=== PATIENT | female | born 1970 | race Two or more races ===

== ENCOUNTER 2020-06-18 08:21 | Outpatient (REF) | payer OTHER, SELFPAY ==
[2020-06-18 10:11] LABS: Alanine Aminotransferase 20 U/L (0-31); Albumin Level 4.3 g/dL (3.5-5.0); Alkaline Phosphatase 87 U/L (39-117); Anion Gap 13 (12-20); Aspartate Amino Transferase 14 U/L (5-31); Bilirubin Total 0.2 mg/dL (0.0-1.0); Blood Urea Nitrogen 12 mg/dL (9-16); Calcium 9.3 mg/dL (8.4-10.2); Carbon Dioxide 24 mmol/L (22-29); Chloride 107 mmol/L (96-108); Cholesterol 228 mg/dL; Estimated Glomerular Filt Rate > 60; Glucose Fasting 141 mg/dL (60-99); HDL Cholesterol 41 mg/dL; LDL Cholesterol Calculated 159 mg/dl; Potassium 4.2 mmol/L (3.3-5.1); Sodium 140 mmol/L (135-145); Total Protein 6.8 g/dL (6.5-8.0); Triglycerides 141 mg/dL
[2020-06-24 13:22] LABS: Vitamin D 25-OH, D2 <4 ng/mL; Vitamin D 25-OH, D3 22 ng/mL; Vitamin D 25-OH, Total 22 ng/mL (30-100)
== END 2020-06-18 08:22 | disposition home or self-care (01) ==
LOC: HO.LAB 08:21
PROVIDERS: PCP Internal Medicine; Visit Provider Internal Medicine
DX: E78.5 Hyperlipidemia, unspecified (principal); R73.02 Impaired glucose tolerance (oral); E55.9 Vitamin D deficiency, unspecified
CPT/HCPCS: 36415; 80053; 80061; 82306

== ENCOUNTER → 2020-06-27 13:31 | Outpatient (BNVA) | payer OTHER, SELFPAY | PROVIDERS: PCP Internal Medicine; Visit Provider Nurse Practitioner Family | DX: M96.1 Postlaminectomy syndrome, not elsewhere classified (principal); Z96.89 Presence of other specified functional implants | CPT/HCPCS: 99202 ==

== ENCOUNTER 2020-07-20 12:49 | Outpatient (REF) | payer OTHER, SELFPAY ==
--- NOTE | ~2020-07-20 | CT_ITS ---
EXAMINATION: CT LUMBAR SPINE WITHOUT CONTRAST CLINICAL INFORMATION: Postlaminectomy syndrome. COMPARISON: Lumbar spine CT 09/23/2017. TECHNIQUE: A multidetector CT acquisition of the lumbar spine is obtained without contrast. Multiplanar reformats were acquired and utilized for image interpretation. This CT examination was performed using dose optimization techniques as appropriate, variously including the following: *Automated exposure control *Adjustment of mA and/or kV according to patient size (this includes techniques or standardized protocols for targeted exams where dose is matched to indication/reason for exam; i.e. extremities or head) *Use of iterative reconstruction technique FINDINGS: Stable-appearing grade 3 anterolisthesis of L5 on S1 and solid interbody fusion at L5-S1. There are redemonstrated postoperative changes following L5-S1 laminectomy. There are old screw tracks within the L4 and S1 vertebral bodies and posterior elements and there is solid posterolateral bone fusion mass spanning the L4-S1 levels. Chronic vertebral body height loss at L5. The vertebral body heights are otherwise maintained. Complete loss of the L5-S1 disc space. Mild disc volume loss at L4-L5 unchanged. The remaining disc volumes are preserved. There are no acute fractures and there are no acute subluxations. There are degenerative changes involving the SI joints bilaterally. There is aortoiliac atherosclerotic calcification. There is sigmoid diverticulosis. The L1-L2 and the L2-L3 disc contours remain within normal limits. No appreciable central canal stenosis nor foraminal stenosis at these levels. L3-L4: Small annular disc bulge and severe bilateral facet arthropathy that has progressed. Vacuum phenomenon within the L3-L4 facet joints bilaterally. No appreciable central canal stenosis and no significant foraminal stenosis. L4-L5: Diffuse annular disc bulge and advanced bilateral facet arthropathy. Central canal is patent and there is likely mild bilateral foraminal encroachment. Findings unchanged. L5-S1: Laminectomy changes. Grade 3 anterolisthesis of L5 on S1. Some calcification is noted along the dorsal margin of the thecal sac. Osteophytic ridging and solid posterolateral bone fusion mass result in fairly severe bilateral foraminal stenosis with probable mass effect on the exiting nerve roots bilaterally that is unchanged. CT/CT lumbar spine wo con IMPRESSION: - Stable-appearing grade 3 anterolisthesis of L5 on S1 and solid interbody fusion at L5-S1. There are redemonstrated postoperative changes following L5-S1 laminectomy. There are old screw tracks within the L4 and S1 vertebral bodies and posterior elements and there is solid posterolateral bone fusion mass spanning the L4-S1 levels. - At L5-S1, grade 3 anterolisthesis, osteophytic ridging, and posterolateral bone fusion mass result in similar severe bilateral bony foraminal encroachment with mass effect on the exiting L5 nerve roots bilaterally. - At the junctional L3-L4 level, severe bilateral hypertrophic facet arthropathy and facet vacuum phenomenon bilaterally have progressed.
== END 2020-07-20 12:50 | disposition home or self-care (01) ==
LOC: HO.CT 12:49
PROVIDERS: Visit Provider Internal Medicine
DX: M96.1 Postlaminectomy syndrome, not elsewhere classified (principal); M43.16 Spondylolisthesis, lumbar region; Z96.89 Presence of other specified functional implants
CPT/HCPCS: 72131; 99212

== ENCOUNTER → 2020-12-16 13:01 | Outpatient (BNVA) | payer OTHER, SELFPAY | PROVIDERS: PCP Internal Medicine; Visit Provider Nurse Practitioner Family ==

== ENCOUNTER 2020-12-28 13:23 | Emergency (ER) | payer OTHER, SELFPAY ==
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
[2020-12-28 13:33] VITALS: BP 129/88; PULSE 109; RESP 16; TEMP 35.8; O2SAT 99; BMI 28.9
[2020-12-28 15:39] LABS: MANUAL DIFF FLAG NO
[2020-12-28 15:42] LABS: Appearance Urine CLEAR; Color Urine YELLOW; Glucose Urine UA 100 MG/DL (NEG); Leukocyte Esterase Urine NEG (NEG); Nitrite Urine NEG (NEG); Specific Gravity - Urine <= 1.005 (1.005-1.025); UACC Culture Trigger NO; Urine Blood 2+ (NEG); Urine Ketones NEG (NEG); Urine Protein NEG (NEG-TRACE)
[2020-12-28 15:53] LABS: Squamous Epithelial Cell Urine 1+ /LPF
[2020-12-28 15:54] LABS: Bacteria Urine TRACE /LPF; RBC Urine 0-2 /HPF (0); WBC Urine 0 /HPF (0-4)
[2020-12-28 15:55] LABS: Basophils Percent Auto 0.3 % (0-2); Eosinophils Absolute Auto 0.1 X10*3/uL (0.0-0.4); Hematocrit 39.3 % (37-47); Hemoglobin 12.5 g/dl (12.0-16.0); Imm Gran Abs Auto 0.02 X10*3/uL (0.00-0.03); Imm Gran Pct Auto 0.3 % (0.0-0.4); Lymphocytes Absolute Auto 1.6 X10*3/uL (1.2-4.9); Lymphocytes Percent Auto 20.5 % (20-40); Mean Corpuscular HGB Conc 31.8 g/dl (31.0-35.0); Mean Corpuscular Hemoglobin 25.5 pg (27.0-33.0); Mean Corpuscular Volume 80.2 fL (80-98); Mean Platelet Volume 9.7 fL (9.4-12.3); Monocytes Absolute Auto 0.5 X10*3/uL (0.1-1.2); Monocytes Percent Auto 6.5 % (2-11); Neutrophils Absolute Auto 5.5 X10*3/uL (2.0-8.3); Neutrophils Percent Auto 71.4 % (45-73); Platelet Count 299 X10*3/uL (160-400); Red Cell Distribution Width 16.2 % (11.0-16.0); White Blood Count 7.7 X10*3/uL (4.8-10.8)
[2020-12-28 15:58] LABS: Alanine Aminotransferase 35 U/L (0-31); Albumin Level 4.8 g/dL (3.5-5.0); Alkaline Phosphatase 81 U/L (39-117); Anion Gap 13 (12-20); Aspartate Amino Transferase 15 U/L (5-31); Bilirubin Direct 0.2 mg/dL (0.0-0.5); Bilirubin Total 0.4 mg/dL (0.0-1.0); Blood Urea Nitrogen 7 mg/dL (9-16); Calcium 9.9 mg/dL (8.4-10.2); Carbon Dioxide 27 mmol/L (22-29); Chloride 101 mmol/L (96-108); Creatinine Clr Calc Pharmacy 76.8; Estimated Glomerular Filt Rate > 60; Glucose Random 122 mg/dL (60-115); Lipase 5 U/L (8-78); Potassium 3.9 mmol/L (3.3-5.1); Sodium 137 mmol/L (135-145); Total Protein 7.8 g/dL (6.5-8.0)
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
[2020-12-28] MEDS: 0.9 % Sodium Chloride 1,000 ML 999 ML IVCONT (17:40)
[2020-12-28] MEDS: Ketorolac Tromethamine 15 MG/ML VIAL 30 MG IVPUSH (17:43)
[2020-12-28] MEDS: ondansetron HCL 4 MG/2 ML VIAL IVPUSH (17:43)
[2020-12-28 17:56] LABS: UPreg QC Valid YES; Urine Pregnancy NEGATIVE (NEGATIVE)
[2020-12-28 18:00] VITALS: BP 146/77; PULSE 83; RESP 16; TEMP 37.2; O2SAT 100
[2020-12-28 18:04] LABS: Magnesium 2.1 mg/dL (1.6-2.6)
[2020-12-28] MEDS: iohexoL 350 MG/ML 100 ML INFUS..BTL IV (18:52)
[2020-12-28 19:11] VITALS: RESP 16
[2020-12-28 19:45] VITALS: BP 154/84; PULSE 84; RESP 16; TEMP 37.2; O2SAT 98
== END 2020-12-28 19:50 | disposition home or self-care (01) ==
PROVIDERS: Physician Assistant Medical; Emergency Provider Internal Medicine; PCP Internal Medicine
DX: Z04.1 Encounter for examination and observation following transport accident (principal); R11.2 Nausea with vomiting, unspecified; R19.7 Diarrhea, unspecified; M54.9 Dorsalgia, unspecified; E11.9 Type 2 diabetes mellitus without complications; Z79.891 Long term (current) use of opiate analgesic
CPT/HCPCS: 36415; 74177; 80048; 80076; 81001; 81025; 83690; 83735; 85025; 96361; 96374; 96375; 99284; 99285; J1885; J2405; Q9967

== ENCOUNTER 2021-01-23 11:45 | Outpatient (REF) | payer OTHER, SELFPAY ==
--- NOTE | ~2021-01-23 | XR_ITS ---
EXAMINATION: XR wrist LT 2V, XR shoulder LT min 2V CLINICAL INFORMATION: Pain COMPARISON: None. TECHNIQUE: 4 views of left shoulder and 4 views of left wrist FINDINGS: Left shoulder: No acute fracture or dislocation. Small marginal osteophytes along the acromioclavicular and glenohumeral joints. No suspicious osseous lesions. Soft tissues unremarkable. Left hand: No acute fracture or dislocation. Severe degenerative changes of the first CMC joint characterized by subchondral sclerosis, prominent marginal osteophytes and periarticular heterotopic ossification. Remainder of the joint spaces and articular surfaces are relatively preserved. Soft tissues otherwise unremarkable. XR/XR wrist LT 2V IMPRESSION: * Mild degenerative changes of the and acromioclavicular and glenohumeral joints. * Severe first CMC arthrosis, disproportionately severe especially when compared to the relative lack of degenerative changes elsewhere within the imaged hand/wrist.
--- NOTE | ~2021-01-23 | XR_ITS ---
EXAMINATION: XR wrist LT 2V, XR shoulder LT min 2V CLINICAL INFORMATION: Pain COMPARISON: None. TECHNIQUE: 4 views of left shoulder and 4 views of left wrist FINDINGS: Left shoulder: No acute fracture or dislocation. Small marginal osteophytes along the acromioclavicular and glenohumeral joints. No suspicious osseous lesions. Soft tissues unremarkable. Left hand: No acute fracture or dislocation. Severe degenerative changes of the first CMC joint characterized by subchondral sclerosis, prominent marginal osteophytes and periarticular heterotopic ossification. Remainder of the joint spaces and articular surfaces are relatively preserved. Soft tissues otherwise unremarkable. XR/XR shoulder LT min 2V IMPRESSION: * Mild degenerative changes of the and acromioclavicular and glenohumeral joints. * Severe first CMC arthrosis, disproportionately severe especially when compared to the relative lack of degenerative changes elsewhere within the imaged hand/wrist.
== END 2021-01-23 11:46 | disposition home or self-care (01) ==
LOC: HO.XRAY 11:45
PROVIDERS: PCP Internal Medicine; Visit Provider Internal Medicine
DX: M25.532 Pain in left wrist (principal); M25.512 Pain in left shoulder
CPT/HCPCS: 73030; 73100

== ENCOUNTER 2021-01-31 15:00 | Outpatient (RCR) | payer OTHER, SELFPAY ==
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
--- NOTE | 2021-02-09 11:27 | MHC.OT.DC ---
[address] [phone] F: [phone] Occupational Therapy Discharge Note Provider: Quin Obrien Diagnosis: PAIN IN LEFT HAND Date of Evaluation: 01/23/21 Date of Discharge: 02/09/21 Treatments to Date: 2 Cancellations to Date: 0 No Shows to Date: 3 Discharge Status: Recommend MD Follow-up Visit Non-compliance Discharge Summary: IRVING PRESENTED FOR HER OCCUPATIONAL THERAPY EVALUATION AND ONE ADDITIONAL TREATMENT SESSION. A CUSTOM THUMB SPICA ORTHOSIS WAS FABRICATED BASED ON XRAY RESULTS AND PATIENT COMPLAINTS OF BASAL THUMB PAIN. SHE WAS RECEPTIVE TO THE ORTHOSIS AND REPORTED GOOD FIT/ COMFORT. PATIENT WAS INSTRUCTED ON A HEP AND CARE/ WEAR OF ORTHOSIS. FOLLOWING THIS APPOINTMENT PATIENT HAD THREE NO SHOWS. SHE WILL BE DISCHARGED FROM ADDITIONAL VISITS DUE TO THE CORE ATTENDANCE POLICY. Electronically Signed By: SANDRA OAKLEY/Urbano Reviewed/agree with student documentation: N/A Therapist: Please Sign and return to therapist, thank you for your referral.
== END 2021-02-09 11:25 | disposition home or self-care (01) ==
LOC: HO.OT 15:00
PROVIDERS: PCP Internal Medicine; Visit Provider Internal Medicine
DX: M79.642 Pain in left hand (principal)
CPT/HCPCS: 29130; 97110; 97166; 97760

== ENCOUNTER → 2021-07-10 11:28 | Outpatient (BNVA) | payer OTHER, SELFPAY | PROVIDERS: PCP Internal Medicine; Visit Provider Internal Medicine | DX: M53.3 Sacrococcygeal disorders, not elsewhere classified (principal); M25.512 Pain in left shoulder; Z96.82 Presence of neurostimulator | CPT/HCPCS: 99212 ==

== ENCOUNTER 2021-08-09 11:45 | Outpatient (REF) | payer OTHER, SELFPAY ==
--- NOTE | ~2021-08-09 | XR_ITS ---
EXAMINATION: XR SACRUM AND COCCYX CLINICAL INFORMATION: Sacrococcygeal disorders COMPARISON: CT abdomen pelvis 12/28/2020 TECHNIQUE: 2 views of the sacrum and 2 views of the coccyx were obtained. FINDINGS: The pelvic ring is intact. Sacroiliac joints are grossly symmetric. No sacral or coccygeal fracture. Degenerative changes of the visualized lower lumbar spine with severe anterolisthesis of L5 on S1 again noted. Small pelvic calcifications are likely vascular in nature. Generator projects over the lower back. XR/XR sacrum coccyx min 2V IMPRESSION: No sacral or coccygeal fracture.
== END 2021-08-09 11:46 | disposition home or self-care (01) ==
LOC: HO.XRAY 11:45
PROVIDERS: PCP Internal Medicine; Visit Provider Internal Medicine
DX: M53.3 Sacrococcygeal disorders, not elsewhere classified (principal)
CPT/HCPCS: 72220

== ENCOUNTER 2021-11-16 08:33 | Outpatient (REF) | payer OTHER, SELFPAY ==
[2021-11-16 08:53] LABS: MANUAL DIFF FLAG NO
[2021-11-16 09:24] LABS: Basophils Absolute Auto 0.1 X10*3/uL (0.0-0.2); Basophils Percent Auto 1.3 % (0-2); Eosinophils Absolute Auto 0.3 X10*3/uL (0.0-0.4); Eosinophils Percent Auto 4.8 % (0-4); Hematocrit 36.9 % (37.0-47.0); Hemoglobin 11.7 g/dl (12.0-16.0); Imm Gran Abs Auto 0.02 X10*3/uL (0.00-0.03); Imm Gran Pct Auto 0.3 % (0.0-0.4); Lymphocytes Absolute Auto 1.8 X10*3/uL (1.2-4.9); Lymphocytes Percent Auto 25.8 % (20-40); Mean Corpuscular HGB Conc 31.7 g/dl (31.0-35.0); Mean Corpuscular Hemoglobin 26.9 pg (27.0-33.0); Mean Corpuscular Volume 84.8 fL (80.0-98.0); Mean Platelet Volume 10.1 fL (9.4-12.3); Monocytes Absolute Auto 0.4 X10*3/uL (0.1-1.2); Monocytes Percent Auto 6.1 % (2-11); Neutrophils Absolute Auto 4.3 x10*3/uL (2.0-8.3); Neutrophils Percent Auto 61.7 % (45-73); Platelet Count 338 X10*3/uL (160-400); Red Blood Count 4.35 X10*6/uL (4.20-5.50); Red Cell Distribution Width 15.4 % (11.0-16.0); White Blood Count 6.9 X10*3/uL (4.8-10.8)
[2021-11-16 09:54] LABS: Alanine Aminotransferase 14 U/L (0-31); Albumin Level 4.3 g/dL (3.5-5.0); Alkaline Phosphatase 94 U/L (39-117); Anion Gap 16 (12-20); Aspartate Amino Transferase 11 U/L (5-31); Bilirubin Total 0.2 mg/dL (0.0-1.0); Blood Urea Nitrogen 14 mg/dL (9-16); Calcium 9.9 mg/dL (8.4-10.2); Carbon Dioxide 26 mmol/L (22-29); Chloride 104 mmol/L (96-108); Cholesterol 167 mg/dL; Estimated Glomerular Filt Rate > 60; Glucose Fasting 138 mg/dL (60-99); HDL Cholesterol 44 mg/dL; Iron 27 mcg/dL (30-160); LDL Cholesterol Calculated 104 mg/dl; Percent Iron Saturation 6 % (15-50); Potassium 4.7 mmol/L (3.3-5.1); Sodium 141 mmol/L (135-145); Total Iron Binding Capacity 463 mcg/dL (228-428); Total Protein 6.9 g/dL (6.5-8.0); Triglycerides 96 mg/dL; Unsaturated Iron Binding 436 ug/dL
[2021-11-16 09:59] LABS: Creatinine Urine 185.16 mg/dL; Microalbum/Creatinine Ratio Ur 5.4 ug/mg cr
[2021-11-16 10:14] LABS: Vitamin D 25-OH Total 36.6 ng/mL (>30)
== END 2021-11-16 08:34 | disposition home or self-care (01) ==
LOC: HO.LAB 08:33
PROVIDERS: PCP Internal Medicine; Visit Provider Internal Medicine
DX: E55.9 Vitamin D deficiency, unspecified (principal); E78.5 Hyperlipidemia, unspecified; D64.9 Anemia, unspecified; E11.9 Type 2 diabetes mellitus without complications
CPT/HCPCS: 36415; 80053; 80061; 82043; 82306; 83540; 85025

== ENCOUNTER 2021-11-22 10:22 | Day surgery (SDC) | payer OTHER, SELFPAY ==
[2021-09-13 16:36] VITALS: BMI 27.1
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
[2021-11-16 16:50] VITALS: BMI 27.4
--- NOTE | ~2021-11-22 | FL_ITS ---
EXAMINATION: XR FLUOROSCOPY WITH IMAGES CLINICAL INFORMATION: Spinal cord stimulator COMPARISON: CT abdomen and pelvis 12/28/2020 TECHNIQUE: Fluoroscopy performed by Dr. John Joseph. Fluoroscopy time: under 1 minute. Cumulative Dose: 0.783 mGy. DAP: 0.213 Gy-cm2. Images: 1. FINDINGS: Oblique view lower lumbar spine demonstrates stimulator electrode into leads ascending lumbar spine beyond field of view. The visualized wires show no kinking or defect. FL/FL guidance in OR IMPRESSION: Fluoroscopy for pain management procedure.
[2021-11-22 12:14] VITALS: BMI 27.4
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
[2021-11-22 12:34] LABS: UPreg QC Valid YES
[2021-11-22 12:35] LABS: Urine Pregnancy NEGATIVE (NEGATIVE)
[2021-11-22 12:37] VITALS: BP 128/67; PULSE 85; RESP 16; TEMP 36.6; O2SAT 98
--- NOTE | 2021-11-22 13:55 | MHC.SHP ---
Pre-Procedural Eval Section A Date of Service: 11/22/21 The patient is an INPATIENT: No Changes since office visit: Yes Patient answered all questions The History & Physical has been completed within 30 days and I have reviewed it.: No Section B Chief Complaint: postlaminectomy syndrome Relevant Family History (Specify if Yes): No Relevant Social History: None Present Medications: see Short Stay Collaborative assessment Medical History: No relevant PMH History of Previous Operations: Relevant previous surgery/procedure and date(s) (SCS placement) Allergies: Allergies Allergy/AdvReac Type Severity Reaction Status Date / Time metformin Allergy Severe nausea, Verified 10/30/21 16:08 diarreah zaleplon Allergy Severe Rash Verified 10/30/21 16:08 buspirone Allergy Intermediate rash Verified 10/30/21 16:08 fluoxetine Allergy Intermediate drowsiness Verified 10/30/21 16:08 paroxetine Allergy Intermediate drowsiness Verified 10/30/21 16:08 sertraline [Zoloft] Allergy Intermediate drowsiness Verified 10/30/21 16:08 suvorexant [From [facility]] Allergy Mild Rash Verified 10/30/21 16:08 Review of Systems Sugical H&P ROS: Negative: Constitution, Cardiovascular and Respiratory Exam Surgical H&P Exam: Normal: HEENT, Normal: Heart and Normal: Lungs Plan Diagnosis/Plan: Unchanged I have reviewed the history and physical and performed a pertinent physical examination on my patient. No changes have occurred unless specified. Plan for IPG replacement for battery EOL.
[2021-11-22 15:30] VITALS: BP 141/78; PULSE 87; RESP 16; TEMP 36.2; O2SAT 95
[2021-11-22 15:45] VITALS: BP 129/74; PULSE 72; RESP 16; O2SAT 97
[2021-11-22 16:00] VITALS: BP 128/72; PULSE 76; RESP 18; TEMP 36.7; O2SAT 97
--- NOTE | 2021-11-27 10:36 | P.BOP_ITS ---
Brief Operative Note Date of Service: 11/22/21 Pre-op diagnosis: Spinal cord stimulator pulse generator at end of life Post-op diagnosis: same Procedure: SCS IPG battery replacement Surgeon: John Joseph MD Anesthesia: MAC Was an Satellite Television Installer used for this Procedure?: No Estimated blood loss (mL): 10 Pathology: none sent Condition: stable Disposition: PACU
--- NOTE | 2021-11-27 10:36 | W.PM.OPN ---
Operative Note Operative Note Date of Service: 11/22/21 Narrative: Lumbar SCS IPG replacement After proper identification, the patient was brought to the operating room. After prone positioning, patient was sedated under anesthesia. Care was taken during positioning to protect and pad all pressure points. Cefazolin 2gm was given as preoperative antibiotic prophylaxis. The left flank area with the existing IPG was prepped and draped in the usual sterile fashion using Chloroprep. The fluoroscope unit was sterilely draped and brought into field, the margins of the existing IPG were localized with fluoroscopy. Then the skin was anesthetized with 1% lidocaine with 1:200,000 epinephrine using a 25-gauge needle. An incision was then made in the left flank overlying the existing IPG with a 15 blade. Electrocautery was used to dissect down to the existing capsule. Blunt dissection using curved scissors was then utilized to expose the existing IPG taking care not to damage any of the leads. The leads were identified to be lying under the IPG good coverage. The sutures tying down the IPG to the underlying tissue were identified and released. The IPG was then extracted easily and inspected. No visible damage was identified to the IPG or the existing leads. The pocket was then irrigated with normal saline containing vancomycin. A screwdriver was then used to unscrew the SCS leads and release them. The SCS lead contacts were wiped with wet and then a dry gauze for preparing insertion into the new IPG. A new IPG was obtained and the appropriate lead corresponding to the appropriate contact numbers was inserted into the top and bottom lead sockets. Impedances were checked for appropriate lead contact docking and confirmed. The leads were then locked into place using a screwdriver. The new IPG was then inserted into the existing pocket. Hemostasis was attained with electrocautery. Two Tycron sutures were thrown across the floor of the pocket and through the anchor holes of the generator to keep it in place. The pocket was then re-irrigated. 2-0 Vicryl sutures were utilized to close the fascia in a continuous fashion followed by interrupted 3-0 deep to superficial and superficial to deep closure for the deep dermal layer. The skin was closed with 4-0 Vicryl. The incision was then covered with Exofin, Steri-Strips, gauze and Tegaderm. An abdominal binder was then placed overlying the IPG. The patient was woken up, flipped supine and brought to the PACU in stable condition.
== END 2021-11-22 16:40 | disposition home or self-care (01) ==
PROVIDERS: Anesthesiology; PCP Internal Medicine; Visit Provider Internal Medicine
PROC: (CPT 63685; principal; 2021-11-22 12:10)
DX: Z45.49 Encounter for adjustment and management of other implanted nervous system device (principal); M96.1 Postlaminectomy syndrome, not elsewhere classified; E11.9 Type 2 diabetes mellitus without complications; I10 Essential (primary) hypertension; E78.00 Pure hypercholesterolemia, unspecified; F33.9 Major depressive disorder, recurrent, unspecified; Z79.899 Other long term (current) drug therapy; Z88.8 Allergy status to other drugs, medicaments and biological substances; F17.210 Nicotine dependence, cigarettes, uncomplicated
CPT/HCPCS: 63685; 81025; C1787; C1820; J0690; J2250; J3010; J3370

== ENCOUNTER → 2021-12-01 10:41 | Outpatient (BNVA) | payer OTHER, SELFPAY | PROVIDERS: PCP Internal Medicine; Visit Provider Internal Medicine | DX: M96.1 Postlaminectomy syndrome, not elsewhere classified (principal); Z96.89 Presence of other specified functional implants | CPT/HCPCS: 99212 ==

== ENCOUNTER 2022-03-14 11:28 | Outpatient (REF) | payer OTHER, SELFPAY ==
--- NOTE | ~2022-03-14 | MM_ITS ---
EXAMINATION: MM SCREENING DIGITAL BREAST TOMOSYNTHESIS, BILATERAL CLINICAL INFORMATION: Screening. Asymptomatic. The lifetime risk of breast cancer based on the Tyrer-Cuzick Model is 20%. COMPARISON: Mammography: 10/01/2017, 08/23/2016, 08/09/2015 TECHNIQUE: Digital breast tomosynthesis is performed in both the craniocaudal and mediolateral oblique views along with computer-aided detection (CAD). Synthesized 2D images are generated from the tomosynthesis. FINDINGS: The breasts are heterogeneously dense, which may obscure small masses (ACR BI-RADS breast composition Category c). There are no significant masses, abnormal calcifications, or other abnormalities. Breast tissue composition borders on average fibroglandular. Parenchymal pattern is similar to prior exams. No developing density or architectural abnormality. No significant changes. MM/MM tomosynthesis screening BI IMPRESSION: No mammographic evidence of malignancy. ASSESSMENT: BI-RADS 1: Negative RECOMMENDATION: Routine annual mammography screening. This patient's information was entered into a reminder system with a target due date for their next mammogram.
== END 2022-03-14 11:29 | disposition home or self-care (01) ==
LOC: HO.MAMMO 11:28
PROVIDERS: PCP Internal Medicine; Visit Provider Internal Medicine
DX: Z12.31 Encounter for screening mammogram for malignant neoplasm of breast (principal)
CPT/HCPCS: 77063; 77067

== ENCOUNTER 2022-11-09 14:15 | Outpatient (REF) | payer OTHER, SELFPAY ==
--- NOTE | ~2022-11-09 | CT_ITS ---
EXAMINATION: CT CHEST LOW-DOSE SCREENING WITHOUT CONTRAST HISTORY: Asymptomatic patient meeting criteria for lung screening. PATIENT PACK-YEAR HISTORY: 38 Current Smoker: Yes If former smoker, years since quitting: COMPARISON: None available. TECHNIQUE: Multidetector volumetric non-contrast CT imaging of the chest was performed using low dose screening CT technique. Axial thin section 0.625 mm reformations in soft tissue and lung windows were obtained. Sagittal and coronal reformations were obtained. Axial MIP images were also created and reviewed. RECONSTRUCTED WIDTH: 1.25 mm x 1.25 mm TOTAL EXAM DLP: 45 mGy-cm CTDIvol: 1.27 mGy FINDINGS: LUNGS: Mild centrilobular emphysema. No suspicious pulmonary nodule. No focal consolidation. Central airways are patent. PLEURA: No pleural effusion. LYMPH NODES: No bulky mediastinal, hilar or axillary or lymphadenopathy. MEDIASTINUM: Great vessels are of normal caliber. Heart size is normal. No pericardial effusion. CORONARY ARTERY CALCIFICATIONS: None. CHEST WALL/BREASTS: No acute abnormality. UPPER ABDOMEN: This study was performed without contrast and with lower than standard dose, reducing the sensitivity for detection of small lesions in the upper abdomen. OSSEOUS STRUCTURES: No destructive bone lesions. CT/CT lung screening IMPRESSION: No suspicious pulmonary nodule. LUNG-RADS CATEGORY ASSESSMENT: 1. Negative. No nodules or definitely benign nodules. Continue annual screening with low-dose CT in 12 months. Probability of malignancy less than 1%. INCIDENTAL FINDINGS (S CATEGORY): Finding: No incidental findings. Significance category: Normal or normal variant. RECOMMENDATION: Low dose lung CT. overall in 1 year. Visual estimate of coronary calcified plaque burden: None. However, this exam cannot replace a dedicated cardiac CT calcium score for accurate assessment. LUNG-RADS CATEGORY: 1 -- NEGATIVE
== END 2022-11-09 14:16 | disposition home or self-care (01) ==
LOC: HO.CT 14:15
PROVIDERS: PCP Internal Medicine; Visit Provider Physician Assistant Medical
DX: Z12.2 Encounter for screening for malignant neoplasm of respiratory organs (principal); F17.210 Nicotine dependence, cigarettes, uncomplicated
CPT/HCPCS: 71271; G0296

== ENCOUNTER 2022-11-09 14:22 | Outpatient (AMB) | payer OTHER, SELFPAY ==
--- NOTE | 2022-11-09 07:52 | A.OFFVIS_ITS ---
Intake Intake Visit Reasons: LDCT SD Allergies metformin Allergy (Severe, Verified 08/02/22 10:57) nausea, diarreah zaleplon Allergy (Severe, Verified 08/02/22 10:57) Rash fluoxetine Allergy (Intermediate, Verified 08/02/22 10:57) drowsiness paroxetine Allergy (Intermediate, Verified 08/02/22 10:57) drowsiness sertraline [Zoloft] Allergy (Intermediate, Verified 08/02/22 10:57) drowsiness suvorexant [From Belsomra] Allergy (Mild, Verified 08/02/22 10:57) Rash HPI LDCT SD HPI Details Initial visit for this 52yo Croatian-speaking patient Current smoker with a 20+PYH. Patient has been smoking since age 14 for 38 years at 1/2-3/4ppd. . Denies marijuana use. Denies second hand smoke exposure. Denies exposure to chemicals or substances like asbestos. . Denies known family history of lung cancer. Denies personal history of cancers. Denies chest CT in last year. . Denies recent travel outside the [place]. Denies recent respiratory illness or recent hospitalization for respiratory issues. Denies testing positive for COVID. Admits receiving COVID Vaccine. x 2. . Denies fever, chills, new/worsening cough, hemoptysis, hoarseness or dysphagia. Denies significant chest pain, significant dyspnea or unintentional weight loss. Patient Lung Cancer Screening Questionnaire reviewed with patient by provider. . Shared Decision Making Completed. Patient meets criteria. Discussed in detail with patient, the risk vs benefit of LDCT screening. Patient consents to proceed with scan. Discussed smoking cessation. [facility] Medical History (Updated 09/17/22 @ 14:13 by Shelbi Mendoza PA-C) Nicotine dependence, cigarettes, uncomplicated Essential hypertension Mild recurrent major depression Pure hypercholesterolemia Hypovitaminosis D Failed back syndrome Diabetes mellitus Hearing loss Insomnia Spondylolisthesis, lumbar region GERD (gastroesophageal reflux disease) Surgical History (Updated 10/05/22 @ 12:28 by Shelbi Mendoza PA-C) History of lithotripsy History of colonoscopy History of esophagogastroduodenoscopy S/P insertion of spinal cord stimulator History of lumbar surgery History of arthroplasty of right knee Family History Father Diabetes Mother Stroke Hypertension Brother Colon cancer Diabetes Family/Other FH: mental illness Social History (Updated 11/09/22 @ 14:49 by Shelbi Mendoza PA-C) Housing: House Alcohol intake: current Alcohol intake frequency: holidays/special occasions only Alcohol type: beer Patient Tobacco Use Status: Current everyday Tobacco user Tobacco use type: Cigarette Cigarettes Per Day: 6 Years Smoked: onset 14yo, 1/2-3/4 ppd x 38yrs, 20+PYH e-Cigarette/Vaping Use: Never Used Second Hand Smoke Exposure: No service: No Current occupational status: disabled Cognitive needs: No Hearing needs: No Vision needs: No Assessment & Plan Assessment & Plan (1) Nicotine dependence, cigarettes, uncomplicated: Comment: (current smoker, onset 14yo, 1/2-3/4 ppd x 38yrs, 20+PYH) Code(s): F17.210 - Nicotine dependence, cigarettes, uncomplicated Plan: - SDM visit completed today in office. - Patient meets criteria for LDCT for lung cancer screening purposes and is asymptomatic. - Smoking cessation counseling offered. Patients can always call [phone]. - Will arrange for a LDCT scan of the chest for screening purposes at [facility]. - Risks, benefits, and alternatives were discussed in detail and the patient agrees to proceed. - Risks discussed include but are not limited to: radiation exposure, anxiety during testing and while awaiting results, false negatives, false positives and possibility of additional intervention such as further imaging or surgical procedures for benign disease. - Benefits are obviously detection of lung cancer at an early stage which can lead to improved outcomes. - Discussed the importance of screening program compliance with adherence to yearly LDCT scan as scheduled - or sooner interval scans for personalized scr eening regimen. - Discussed follow up plan. Our office will send a letter discussing results and if needed set up phone call and office visit based on CT findings. - Patient educated on results categorization and the management decisions for suspicious findings potentially found on the screening LDCT scan. Any patient with a Lung RADS score of 3 or 4 will be reviewed by a multidisciplinary team at [facility] to form a plan of action in regards to scan findings. - If further work up is warranted for a suspicious lung finding this will be followed by the Lung Cancer Screening program in conjunction with the Thoracic Surgery Department at [facility]. - A copy of the office note and LDCT will be sent to the patient's PCP - as well as documentation on any associated further plans of care. - Incidental findings on LDCT are the PCP's responsibility. These findings are indicated with an S finding on the LDCT Assessment. A note discussing the findings will be sent to the PCP who is then responsible for further management. - All questions answered.? Quality Reporting (2019) Adult ([facility] 138/04/25/68) Smoking risk assessment performed?: Yes Patient Tobacco Use Status: Current everyday Tobacco user Coding Level of Care Code Lung Cancer Screening G0296 Diagnoses Nicotine dependence, cigarettes, uncomplicated F17.210
== END 2022-11-09 14:26 | disposition home or self-care (01) ==
PROVIDERS: PCP Internal Medicine; Visit Provider Physician Assistant Medical
DX: F17.210 Nicotine dependence, cigarettes, uncomplicated (principal)
CPT/HCPCS: G0296

== ENCOUNTER 2022-11-16 11:25 | Outpatient (REF) | payer OTHER, SELFPAY ==
--- NOTE | ~2022-11-16 | XR_ITS ---
EXAMINATION: XR CERVICAL SPINE, THORACIC SPINE, LUMBAR SPINE CLINICAL INFORMATION: Neck and back pain. Laminectomy syndrome. COMPARISON: Sacrum and coccyx x-ray 08/09/2021. CT lumbar spine 07/20/2020. CT thoracic spine 07/29/2018. X-ray lumbar spine 09/23/2017. TECHNIQUE: 2 views of the sacrum and 2 views of the coccyx were obtained lateral, AP and 2 odontoid views of the cervical spine. 3 views of the thoracic spine. 3 views of the lumbar spine. FINDINGS: Cervical spine: Advanced degenerative changes with hypertrophic change and moderate loss of disc space height at C5-C6. Mild retrolisthesis of C5 on C6. Thoracic spine: Moderate multilevel degenerative changes with hypertrophic change in the thoracic spine. Spinal stimulator leads overlying the spinal canal extending from the level of the T8-T9 level and traversing superiorly to the level of T6. Lumbar spine: Redemonstration of severe anterolisthesis of L5 on S1 with with complete loss of L5-S1 disc space height. Generator projects over the lower back. Postoperative changes status post L5-S1 laminectomy were characterized on CT scan of 07/20/2020. Similar-appearing loss of L5 vertebral body height. Mild to moderate loss of disc space height at L4-L5. XR/XR cervical spine 2V IMPRESSION: 1. Advanced degenerative changes at C5-C6. Mild retrolisthesis of C5 on C6. 2. Moderate multilevel degenerative changes with hypertrophic change in the thoracic spine. 3. Spinal stimulator leads overlying the spinal canal extending from the level of the T8-T9 level and traversing superiorly to the level of T6. 4. Redemonstration of severe anterolisthesis of L5 on S1 with with complete loss of L5-S1 disc space height. 5. Postoperative changes status post L5-S1 laminectomy were characterized on CT scan of 07/20/2020. Additional imaging with CT scan or MRI should be considered for better visualization as these modalities are much more sensitive for detection of fracture or other underlying pathology.
--- NOTE | ~2022-11-16 | XR_ITS ---
EXAMINATION: XR SHOULDER, LEFT CLINICAL INFORMATION: Pain in left shoulder COMPARISON: Left shoulder 01/23/2021 TECHNIQUE: AP external rotation, Grashey, scapular Y, and axillary views of the left shoulder. FINDINGS: The bones are intact. No fracture. Glenohumeral and acromioclavicular alignment is anatomic. There is moderate degenerative change of the acromioclavicular joint. There is slight narrowing of the glenohumeral joint.. No abnormal soft tissue calcifications. XR/XR shoulder LT min 2V IMPRESSION: Degenerative changes. No acute bony abnormality.
--- NOTE | ~2022-11-16 | XR_ITS ---
EXAMINATION: XR CERVICAL SPINE, THORACIC SPINE, LUMBAR SPINE CLINICAL INFORMATION: Neck and back pain. Laminectomy syndrome. COMPARISON: Sacrum and coccyx x-ray 08/09/2021. CT lumbar spine 07/20/2020. CT thoracic spine 07/29/2018. X-ray lumbar spine 09/23/2017. TECHNIQUE: 2 views of the sacrum and 2 views of the coccyx were obtained lateral, AP and 2 odontoid views of the cervical spine. 3 views of the thoracic spine. 3 views of the lumbar spine. FINDINGS: Cervical spine: Advanced degenerative changes with hypertrophic change and moderate loss of disc space height at C5-C6. Mild retrolisthesis of C5 on C6. Thoracic spine: Moderate multilevel degenerative changes with hypertrophic change in the thoracic spine. Spinal stimulator leads overlying the spinal canal extending from the level of the T8-T9 level and traversing superiorly to the level of T6. Lumbar spine: Redemonstration of severe anterolisthesis of L5 on S1 with with complete loss of L5-S1 disc space height. Generator projects over the lower back. Postoperative changes status post L5-S1 laminectomy were characterized on CT scan of 07/20/2020. Similar-appearing loss of L5 vertebral body height. Mild to moderate loss of disc space height at L4-L5. XR/XR lumbar spine 2-3V IMPRESSION: 1. Advanced degenerative changes at C5-C6. Mild retrolisthesis of C5 on C6. 2. Moderate multilevel degenerative changes with hypertrophic change in the thoracic spine. 3. Spinal stimulator leads overlying the spinal canal extending from the level of the T8-T9 level and traversing superiorly to the level of T6. 4. Redemonstration of severe anterolisthesis of L5 on S1 with with complete loss of L5-S1 disc space height. 5. Postoperative changes status post L5-S1 laminectomy were characterized on CT scan of 07/20/2020. Additional imaging with CT scan or MRI should be considered for better visualization as these modalities are much more sensitive for detection of fracture or other underlying pathology.
== END 2022-11-16 11:26 | disposition home or self-care (01) ==
LOC: HO.XRAY 11:25
PROVIDERS: PCP Internal Medicine; Visit Provider Internal Medicine
DX: M25.512 Pain in left shoulder (principal); M54.2 Cervicalgia; M96.1 Postlaminectomy syndrome, not elsewhere classified
CPT/HCPCS: 72040; 72070; 72100; 73030; 99212

== ENCOUNTER 2022-11-16 11:25 | Outpatient (AMB) | payer OTHER, SELFPAY ==
[2022-11-16 11:30] VITALS: BP 139/69; PULSE 80; RESP 14; O2SAT 96; BMI 28.9
--- NOTE | 2022-11-16 11:30 | A.OFFVIS_ITS ---
Intake Vital Signs 11/16/22 11:30 Height 5 ft 2 in Weight 158 lb BMI 28.9 BP 139/69 Blood Pressure Location Lt brachial Position Sitting Respiration 14 Pulse 80 Pulse Source Pulse Oximeter Pulse Oximetry (%) 96 Oxygen Delivery Method Room Air Intake Visit Reasons: LOW BACK PAIN Marketing Planning Manager Required: Yes Marketing Planning Manager Name: La #[id number] Allergies metformin Allergy (Severe, Verified 08/02/22 10:57) nausea, diarreah zaleplon Allergy (Severe, Verified 08/02/22 10:57) Rash fluoxetine Allergy (Intermediate, Verified 08/02/22 10:57) drowsiness paroxetine Allergy (Intermediate, Verified 08/02/22 10:57) drowsiness sertraline [Zoloft] Allergy (Intermediate, Verified 08/02/22 10:57) drowsiness suvorexant [From Belsomra] Allergy (Mild, Verified 08/02/22 10:57) Rash HPI LOW BACK PAIN HPI Details 52-year-old female who presents today to the office for a low back pain. A certified scaling machine operator was present during the visit. Her pain started worsening since past three months. She denies any accidents or trauma. She reports involuntary muscle spasms in her left leg that started about three months. She has not met [facility] customer field representative in recent past. ON LICENSE OF [facility] Medical History (Updated 09/17/22 @ 14:13 by Shelbi Mendoza PA-C) Nicotine dependence, cigarettes, uncomplicated Essential hypertension Mild recurrent major depression Pure hypercholesterolemia Hypovitaminosis D Failed back syndrome Diabetes mellitus Hearing loss Insomnia Spondylolisthesis, lumbar region GERD (gastroesophageal reflux disease) Surgical History (Updated 10/05/22 @ 12:28 by Shelbi Mendoza PA-C) History of lithotripsy History of colonoscopy History of esophagogastroduodenoscopy S/P insertion of spinal cord stimulator History of lumbar surgery History of arthroplasty of right knee Family History Father Diabetes Mother Stroke Hypertension Brother Colon cancer Diabetes Family/Other FH: mental illness Social History (Updated 11/09/22 @ 14:49 by Shelbi Mendoza PA-C) Housing: House Alcohol intake: current Alcohol intake frequency: holidays/special occasions only Alcohol type: beer Patient Tobacco Use Status: Current everyday Tobacco user Tobacco use type: Cigarette Cigarettes Per Day: 6 Years Smoked: onset 14yo, 1/2-3/4 ppd x 38yrs, 20+PYH e-Cigarette/Vaping Use: Never Used Second Hand Smoke Exposure: No service: No Current occupational status: disabled Cognitive needs: No Hearing needs: No Vision needs: No Review of Systems Const All systems reviewed & are unremarkable except as noted in HPI and below Physical Exam Vital Signs: Last Vital Signs Pulse 80 11/16/22 11:30 Resp 14 11/16/22 11:30 BP 139/69 11/16/22 11:30 Pulse Ox 96 11/16/22 11:30 Oxygen Delivery Method Room Air 11/16/22 11:30 BMI result Body Mass Index 28.9 General: Appears afebrile. Alert and oriented. Mood and affect appropriate. Follows and participates in conversation appropriately. Respiratory effort is unlabored. Able to transition from sit to stand unassisted. Ambulates with bilaterally normal heel strike and toe off. Significant sensitivity and tenderness to superficial palpation overlying the past midline scars. Significant tenderness to palpation overlying the coccyx. Mild tenderness to palpation overlying the IPG which is consistent with her last exam. Results Reviewed Results Reviewed: No imaging is available for review. Assessment & Plan Assessment & Plan (1) Failed back syndrome: Code(s): M96.1 - Postlaminectomy syndrome, not elsewhere classified Plan Ordered an x-ray of the lumbar and thoracic spine to rule out any lead migration or anchor dislodgement. I recommend meeting with [employer] customer field representative Yolande to see if reprogramming might help with her ongoing pain symptoms. If it does not provide any benefits, we will order a CT scan of the lumbar spine for further evaluation in setting of increasing pain and increasing right lower extremity spasms. Scribed for Dr. Joseph by Pancho Weldon, medical doctor md, on 11/16/2022. I, Dr. Joseph, have personally reviewed and agree with the information entered by the scribe. ? Orders: Orders XR lumbar spine 2-3V Today M96.1 - Postlaminectomy syndrome, not elsewhere classified XR thoracic spine 2V Today M96.1 - Postlaminectomy syndrome, not elsewhere classified Quality Reporting (2019) Adult ([facility] 138/04/25/68) Smoking risk assessment performed?: Yes Patient Tobacco Use Status: Current everyday Tobacco user Coding Level of Care Code Est Pt Level 4 (39592) Diagnoses Failed back syndrome M96.1
== END 2022-11-16 11:54 | disposition home or self-care (01) ==
PROVIDERS: PCP Internal Medicine; Visit Provider Internal Medicine
DX: M96.1 Postlaminectomy syndrome, not elsewhere classified (principal)
CPT/HCPCS: 99213

== ENCOUNTER → 2022-11-19 11:02 | Outpatient (BNVA) | payer OTHER, SELFPAY | PROVIDERS: PCP Internal Medicine; Visit Provider Internal Medicine | DX: Z45.42 Encounter for adjustment and management of neurostimulator (principal) | CPT/HCPCS: 99211 ==

== ENCOUNTER 2022-12-03 10:48 | Outpatient (AMB) | payer OTHER, SELFPAY ==
[2022-12-03 11:01] VITALS: BP 131/65; PULSE 81; RESP 14; O2SAT 97; BMI 26.0
--- NOTE | 2022-12-03 11:01 | MHC.OFFVIS ---
Intake Vital Signs 12/03/22 11:01 Height 5 ft 6 in Weight 161 lb BMI 26.0 BP 131/65 Blood Pressure Location Lt brachial Position Sitting Respiration 14 Pulse 81 Pulse Source Pulse Oximeter Pulse Oximetry (%) 97 Oxygen Delivery Method Room Air Intake Visit Reasons: Cerv, Thor, Lumb Spine and Shoulder Xray Results Consumer Insight Manager Required: Yes Consumer Insight Manager Name: [place] #[id number] Allergies metformin Allergy (Severe, Verified 12/03/22 11:03) nausea, diarreah zaleplon Allergy (Severe, Verified 12/03/22 11:03) Rash fluoxetine Allergy (Intermediate, Verified 12/03/22 11:03) drowsiness paroxetine Allergy (Intermediate, Verified 12/03/22 11:03) drowsiness sertraline [Zoloft] Allergy (Intermediate, Verified 12/03/22 11:03) drowsiness suvorexant [From Belsomra] Allergy (Mild, Verified 12/03/22 11:03) Rash Medication List - Last Reconciled 12/03/22 by Debora Luu LPN aripiprazole 15 mg PO QAM arm brace (Wrist Brace Medium) As directed azithromycin 250 mg PO DAILY 5 days baclofen 20 mg PO TID 30 days blood sugar diagnostic (FreeStyle Test strips) Use 1 test strip once a day blood-glucose meter (FreeStyle [place] Lite kit) As directed buspirone 30 mg PO BEDTIME cholecalciferol (vitamin D3) 25 mcg PO DAILY 90 days estazolam 2 mg PO BEDTIME fluocinolone acetonide oil 0.01% (DermOtic Oil) 5 drps otic (ears) BID 7 days lancets (FreeStyle Lancets) Use 1 lancet once a day lisinopril 5 mg PO BID 90 days oxycodone 10 mg PO Q4-6H PRN 30 days pantoprazole 40 mg PO DAILY 90 days pioglitazone 15 mg PO DAILY 90 days rosuvastatin 20 mg PO DAILY 90 days sucralfate 1 g PO BID temazepam 30 mg PO BEDTIME trazodone 100 mg PO BEDTIME venlafaxine ER 150 mg PO DAILY HPI Cerv, Thor, Lumb Spine and Shoulder Xray Results HPI Details 52-year-old female who presents today to the office for a review of imaging and SCS programming. A certified account executive software sales was present during the visit. She met the [employer] SCS retail account representative, Yolande. She has already exhausted different programs that were given to her without any significant improvement in her symptoms. She is interested in considering other pain management modalities given lack of continued relief from spinal cord stimulation. [facility] Medical History (Updated 09/17/22 @ 14:13 by Shelbi Mendoza PA-C) Nicotine dependence, cigarettes, uncomplicated Essential hypertension Mild recurrent major depression Pure hypercholesterolemia Hypovitaminosis D Failed back syndrome Diabetes mellitus Hearing loss Insomnia Spondylolisthesis, lumbar region GERD (gastroesophageal reflux disease) Surgical History (Updated 10/05/22 @ 12:28 by Shelbi Mendoza PA-C) History of lithotripsy History of colonoscopy History of esophagogastroduodenoscopy S/P insertion of spinal cord stimulator History of lumbar surgery History of arthroplasty of right knee Family History Father Diabetes Mother Stroke Hypertension Brother Colon cancer Diabetes Family/Other FH: mental illness Social History (Updated 11/09/22 @ 14:49 by Shelbi Mendoza PA-C) Housing: House Alcohol intake: current Alcohol intake frequency: holidays/special occasions only Alcohol type: beer Patient Tobacco Use Status: Current everyday Tobacco user Tobacco use type: Cigarette Cigarettes Per Day: 6 Years Smoked: onset 14yo, 1/2-3/4 ppd x 40yrs, 20+PYH e-Cigarette/Vaping Use: Never Used Second Hand Smoke Exposure: No service: No Current occupational status: disabled Cognitive needs: No Hearing needs: No Vision needs: No Review of Systems Const All systems reviewed & are unremarkable except as noted in HPI and below Physical Exam Vital Signs: Last Vital Signs Pulse 81 12/03/22 11:01 Resp 14 12/03/22 11:01 BP 131/65 12/03/22 11:01 Pulse Ox 97 12/03/22 11:01 Oxygen Delivery Method Room Air 12/03/22 11:01 BMI result Body Mass Index 26.0 General: Appears afebrile. Alert and oriented. Mood and affect appropriate. Follows and participates in conversation appropriately. Respiratory effort is unlabored. Able to transition from sit to stand unassisted. Ambulates with bilaterally normal heel strike and toe off. Results Reviewed Results Reviewed: 11/16/22: XR CERVICAL SPINE, THORACIC SPINE, LUMBAR SPINE FINDINGS: Cervical spine: Advanced degenerative changes with hypertrophic change and moderate loss of disc space height at C5-C6. Mild retrolisthesis of C5 on C6. Thoracic spine: Moderate multilevel degenerative changes with hypertrophic change in the thoracic spine. Spinal stimulator leads overlying the spinal canal extending from the level of the T8-T9 level and traversing superiorly to the level of T6. Lumbar spine: Redemonstration of severe anterolisthesis of L5 on S1 with with complete loss of L5-S1 disc space height. Generator projects over the lower back. Postoperative changes status post L5-S1 laminectomy were characterized on CT scan of 07/20/2020. Similar-appearing loss of L5 vertebral body height. Mild to moderate loss of disc space height at L4-L5. IMPRESSION: 1. Advanced degenerative changes at C5-C6. Mild retrolisthesis of C5 on C6. 2. Moderate multilevel degenerative changes with hypertrophic change in the thoracic spine. 3. Spinal stimulator leads overlying the spinal canal extending from the level of the T8-T9 level and traversing superiorly to the level of T6. 4. Redemonstration of severe anterolisthesis of L5 on S1 with complete loss of L5-S1 disc space height. 5. Postoperative changes status post L5-S1 laminectomy were characterized on CT scan of 07/20/2020. Additional imaging with CT scan or MRI should be considered for better visualization as these modalities are much more sensitive for detection of fracture or other underlying pathology. 11/16/22: XR SHOULDER, LEFT FINDINGS: The bones are intact. No fracture. Glenohumeral and acromioclavicular alignment is anatomic. There is moderate degenerative change of the acromioclavicular joint. There is slight narrowing of the glenohumeral joint. No abnormal soft tissue calcifications. IMPRESSION: Degenerative changes. No acute bony abnormality. Assessment & Plan Assessment & Plan (1) Failed back syndrome: Code(s): M96.1 - Postlaminectomy syndrome, not elsewhere classified Plan The patient has already tried different programs that were given to her by the [employer] Flight Engineer Instructor; unfortunately, none of them have been helpful so far. Her paddle lead remains in position, so I will send her for a CT of the lumbar spine to rule out any changes in her lumbar spine disease. Assuming that her lumbar spine anatomy is unchanged, we can either continue reprogramming the device or consider a pain pump implant if the patient is amenable to the plan. She will return to the clinic to review CT findings once it is done. Scribed for Dr. Joseph by Pancho Weldon, medical technician, on 12/03/2022. I, Dr. Joseph, have personally reviewed and agree with the information entered by the scribe. Orders: Orders CT lumbar spine wo IV con 12/03/22 M96.1 - Postlaminectomy syndrome, not elsewhere classified Quality Reporting (2020) Adult ([facility] 138//) Smoking risk assessment performed?: Yes Patient Tobacco Use Status: Current everyday Tobacco user Coding Level of Care Code Est Pt Level 3 (99894) Diagnoses Failed back syndrome M96.1
== END 2022-12-03 11:12 | disposition home or self-care (01) ==
PROVIDERS: PCP Internal Medicine; Visit Provider Internal Medicine
DX: M96.1 Postlaminectomy syndrome, not elsewhere classified (principal)
CPT/HCPCS: 99213

== ENCOUNTER → 2022-12-03 10:48 | Outpatient (BNVA) | payer OTHER, SELFPAY | PROVIDERS: PCP Internal Medicine; Visit Provider Internal Medicine | DX: M96.1 Postlaminectomy syndrome, not elsewhere classified (principal); M43.16 Spondylolisthesis, lumbar region; Z96.82 Presence of neurostimulator; Z79.891 Long term (current) use of opiate analgesic | CPT/HCPCS: 99212 ==

== ENCOUNTER 2022-12-28 07:52 | Outpatient (REF) | payer OTHER, SELFPAY ==
--- NOTE | ~2022-12-28 | CT_ITS ---
EXAMINATION: CT LUMBAR SPINE WITHOUT CONTRAST CLINICAL INFORMATION: Postlaminectomy syndrome COMPARISON: CT lumbar spine 07/20/2020 TECHNIQUE: A multidetector CT acquisition of the lumbar spine is obtained without contrast. This CT examination was performed using dose optimization techniques as appropriate, variously including the following: *Automated exposure control *Adjustment of mA and/or kV according to patient size (this includes techniques or standardized protocols for targeted exams where dose is matched to indication/reason for exam; i.e. extremities or head) *Use of iterative reconstruction technique DLP: 544 mGy-cm FINDINGS: Stable grade 3 anterolisthesis at L5-S1 with severe disc height loss and solid interbody arthrodesis at this level. Postoperative changes following remote L5-S1 laminectomy with vacated screw tracks in the L4 and S1 vertebral bodies/posterior elements. Stable chronic height loss and osseous remodeling of the L5 vertebral body with posterior wedging. There is solid posterolateral bone fusion mass again seen spanning L4-S1. The remainder of the vertebral body heights maintained. Stable mild L4-L5 disc height loss. There is no suspicious osseous lesion. The intervertebral disc space heights are normal. Please not canal patency is not well assessed on this examination due to inherent limitations of CT without intrathecal contrast. Within these limitations, multilevel degenerative changes with level by level detail are as follows: L1-L2: No spinal canal or neural foraminal stenosis. L2-L3: Shallow annular disc bulge and mild facet arthrosis with ligamentum flavum thickening. No spinal canal or neural foraminal stenosis. L3-L4: Annular disc bulge with advanced bilateral facet arthrosis with ligamentum flavum thickening and vacuum phenomenon. No appreciable spinal canal stenosis. No neural foraminal stenosis. L4-L5: Annular disc bulge with advanced bilateral facet arthrosis with ligamentum flavum thickening. No spinal canal stenosis. Stable mild bilateral neural foraminal encroachment. L5-S1: Postlaminectomy changes with uncovered posterior disc, osteophytic ridging, advanced bilateral facet arthrosis and solid posterolateral bone fusion mass. Redemonstrated mild calcification along the dorsal margin of the thecal sac. Spinal canal is decompressed. Impression upon the traversing bilateral S1 nerve roots. Stable severe neural foraminal stenosis with marked compression of the exiting L5 nerve roots. There is a to severe fatty atrophy of the lower paraspinal musculature. Partial ossification of the left iliolumbar ligament near the L5 transverse ligament attachment site. Aortobiiliac calcific atherosclerosis. Partially imaged presumably leiomyomatous uterus. The abdominal aorta is of normal contour and caliber. CT/CT lumbar spine wo IV con IMPRESSION: Stable grade 3 anterolisthesis at L5-S1 and chronic postoperative changes following L5-S1 laminectomy. Solid L4-S1 posterolateral bone fusion mass and interbody arthrodesis at L5-S1. Stable severe bilateral L5-S1 neural foraminal stenosis with marked compression of the exiting L5 nerve roots. Additional stable lumbar spondylosis, including advanced hypertrophic facet arthrosis with vacuum phenomenon at the superior junctional level of L3-L4.
== END 2022-12-28 07:53 | disposition home or self-care (01) ==
LOC: HO.CT 07:52
PROVIDERS: PCP Internal Medicine; Visit Provider Internal Medicine
DX: M96.1 Postlaminectomy syndrome, not elsewhere classified (principal)
CPT/HCPCS: 72131

== ENCOUNTER 2023-01-02 09:56 | Outpatient (AMB) | payer OTHER, SELFPAY ==
--- NOTE | 2023-01-02 10:00 | MHC.PC.OV ---
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: No Accompanied by: Significant Other Allergies metformin Allergy (Severe, Verified 01/02/23 10:14) nausea, diarreah zaleplon Allergy (Severe, Verified 01/02/23 10:14) Rash fluoxetine Allergy (Intermediate, Verified 01/02/23 10:14) drowsiness paroxetine Allergy (Intermediate, Verified 01/02/23 10:14) drowsiness sertraline [Zoloft] Allergy (Intermediate, Verified 01/02/23 10:14) drowsiness suvorexant [From Belsomra] Allergy (Mild, Verified 01/02/23 10:14) Rash Medication List - Last Reconciled 01/02/23 by Quin Obrien MD aripiprazole 15 mg PO QAM arm brace (Wrist Brace Medium) As directed baclofen 20 mg PO TID 30 days blood sugar diagnostic (FreeStyle Test strips) Use 1 test strip once a day blood-glucose meter (FreeStyle [place] Lite kit) As directed buspirone 30 mg PO BEDTIME cholecalciferol (vitamin D3) 25 mcg PO DAILY 90 days estazolam 2 mg PO BEDTIME fluocinolone acetonide oil 0.01% (DermOtic Oil) 5 drps otic (ears) BID 7 days lancets (FreeStyle Lancets) Use 1 lancet once a day lisinopril 5 mg PO BID 90 days oxycodone 10 mg PO Q4-6H PRN 30 days pantoprazole 40 mg PO DAILY 90 days pioglitazone 15 mg PO DAILY 90 days rosuvastatin 20 mg PO DAILY 90 days sucralfate 1 g PO BID temazepam 30 mg PO BEDTIME trazodone 100 mg PO BEDTIME venlafaxine ER 150 mg PO DAILY Tobacco use date assessed: 03/26/22 Dental Screening Dental Screen Date: 01/02/23 Did you have a dental visit in the last 12 months?: Yes Did you have a dental problem in the last 6 months where you did not have access to dental care?: No Was dental information given to patient?: Patient has dentist HPI HPI Comments History of Present Illness Details This is a 52-year-old female with diabetes mellitus type 2, essential hypertension, pure hypercholesterolemia and mild recurrent major depression that comes today for follow-up on her conditions accompanied by a female partner. A1c within goal. Blood pressure stable. Lipid panel will be order and her LDL goal should be less than 70. Depression has been stable with medications and this is follow by Psychiatry. Complains of chronic low back pain that has been aggravated for the past few months. Follows with pain management. [facility] Medical History (Updated 01/02/23 @ 10:49 by Quin Obrien MD) Nicotine dependence, cigarettes, uncomplicated Essential hypertension Mild recurrent major depression Pure hypercholesterolemia Hypovitaminosis D Failed back syndrome Diabetes mellitus Hearing loss Insomnia Spondylolisthesis, lumbar region GERD (gastroesophageal reflux disease) Surgical History History of lithotripsy History of colonoscopy History of esophagogastroduodenoscopy S/P insertion of spinal cord stimulator History of lumbar surgery History of arthroplasty of right knee Family History Father Diabetes Mother Stroke Hypertension Brother Colon cancer Diabetes Family/Other FH: mental illness Social History Housing: House Alcohol intake: current Alcohol intake frequency: holidays/special occasions only Alcohol type: beer Patient Tobacco Use Status: Current everyday Tobacco user Tobacco use type: Cigarette Cigarettes Per Day: 6 Years Smoked: onset 14yo, 1/2-3/4 ppd x 40yrs, 20+PYH Packs per year/per ci.00 e-Cigarette/Vaping Use: Never Used Second Hand Smoke Exposure: No service: No Current occupational status: disabled Cognitive needs: No Hearing needs: No Vision needs: No Questionnaire Thrive Questionnaire Date Thrive assessed: 03/26/22 YAHAIRA-7 AMB Questionnaire YAHAIRA-7 Date YAHAIRA - 7 assessed: 03/26/22 Source: Developed by Drs. Juan Gonzalez, Allison Casper, Jhony Bazan and colleagues, with an educational tay from [employer]. Review of Systems Const All systems reviewed & are unremarkable except as noted in HPI and below Eyes Reports no additional complaints, Denies change in vision and Denies other visual disturbances Card Denies chest pain at rest, Denies chest pain with activity, Denies edema, Denies irregular heart rhythm, Denies claudication, Denies dyspnea, Denies dyspnea on exertion, Denies orthopnea, Denies paroxysmal nocturnal dyspnea and Denies slow heart rate Resp Denies cough, Denies dyspnea and Denies dyspnea on exertion GI Denies abdominal pain, Denies change in bowel habits, Denies excessive flatus, Denies nausea and Denies vomiting Denies urinary incontinence, Denies urinary hesitancy and Denies urinary urgency Musc Denies abnormal gait, Denies atrophy, Denies deformity and Denies limited range of motion Skin/Breast Denies bleeding lesions, Denies changing lesions and Denies rash Neuro Denies abnormal gait and Denies lack of coordination Physical exam (Primary Care) Vital Signs: Last Vital Signs Pulse 86 01/02/23 10:05 BP 132/70 01/02/23 10:05 Pulse Ox 96 01/02/23 10:05 Oxygen Delivery Method Room Air 01/02/23 10:05 BMI result Body Mass Index 25.7 Tobacco/Smoking Status: Tobacco use Status Tobacco use date assessed 03/26/22 01/02/23 10:01 Patient Tobacco Use Status Current everyday Tobacco 01/02/23 10:01 Tobacco use type Cigarette 01/02/23 10:01 e-Cigarette/Vaping Use Never Used 01/02/23 10:01 Thrive Assessment: Date of Thrive Assessment Date Thrive assessed 03/26/22 01/02/23 10:01 Eyes General: appearance normal, both eyes and all related structures Eyelids: Yes eyelids normal Conjunctivae: conjunctivae normal Neck Neck: Yes normal visual inspection and Yes supple Resp Effort & Inspection: normal respiratory effort Auscultation: clear to auscultation bilaterally Cardio Jugular venous distension: no JVD Rate: regular rate Rhythm: regular rhythm Heart sounds: S1 normal heart sound present and S2 normal heart sound present Extrem General: Yes full ROM Office Procedures Flu Questionnaire Does the patient have a severe egg allergy?: No Does the patient have severe life threatening allergies?: No Does the patient have a fever or illness today?: No Has the patient ever had Guillain-Lyons Syndrome?: No Has the patient ever had any past reaction to a flu shot?: No Results AMB Hemoglobin A1c AMB Hemoglobin A1c 6.2 % Last Edit by CHIRAG Hatch on 01/02/23 10:13 Immunizations flu vacc [id number] 6mos up(PF) 60 mcg(15 mcgx4)/0.5 mL IM syringe Performing Provider: Quin Obrien MD Performing Location: [facility] [place] [place] [facility] Administered by: CHIRAG Hatch on 01/02/23 10:28 Dose Route Admin Location Dispensed Lot Number Expiration Date NDC Social Work Msw 0.5 mL IM Left Deltoid 0.5 mL [id number] 09/01/23 32412-939-81 NOTIK VIS Given Date VIS Provided VIS Publication Date 01/02/23 Single Vaccine 20 Eligibility Eligibility Date Funding Source Not VFC Eligible 01/02/23 Private Results Reviewed Results Reviewed: Laboratory Last Values Hgb A1c (Clinic) 6.2 % (4.0-6.0) H 01/02/23 10:00 Assessment and Plan Assessment & Plan (1) Diabetes mellitus: Code(s): E11.9 - Type 2 diabetes mellitus without complications Qualifiers: Diabetes mellitus type: type 2 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 A1c goal is equal or less than 7%. (2) Mild recurrent major depression: Code(s): F33.0 - Major depressive disorder, recurrent, mild Plan: Continue Abilify. Follow-up with psychiatry. (3) Essential hypertension: Code(s): I10 - Essential (primary) hypertension Plan: Continue lisinopril. Blood pressure goal is equal or less than 130/80. (4) Pure hypercholesterolemia: Code(s): E78.00 - Pure hypercholesterolemia, unspecified Plan: Continue statins. Repeat lipid panel. LDL goal is less than 70. Orders: Orders AMB Hemoglobin A1c Today E11.9 - Type 2 diabetes mellitus without complications Influenza [id number] Immunization Today Z23 - Encounter for immunization Lipid Panel Today E78.5 - Hyperlipidemia, unspecified Comprehensive [place]. Panel Fast Today E11.9 - Type 2 diabetes mellitus without complications CA echo transthoracic complete Today R01.1 - Cardiac murmur, unspecified Microalbumin, Random (w Creat) Today E11.9 - Type 2 diabetes mellitus without complications Complete Blood Count Auto Diff Today D64.9 - Anemia, unspecified Medications: New cetirizine (All Day Allergy (cetirizine)) 10 mg (10 mL) PO DAILY 30 days PRN 120 mL 2RF allergy symptoms Coding Level of Care Code Est Pt Level 4 (01483) Diagnoses Type 2 diabetes mellitus without complication, without long-term current use of insulin E11.9 Diabetes mellitus type: type 2 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
[2023-01-02 10:05] VITALS: BP 132/70; PULSE 86; O2SAT 96; BMI 25.7
== END 2023-01-02 10:33 | disposition home or self-care (01) ==
PROVIDERS: PCP Internal Medicine; Visit Provider Internal Medicine
DX: E11.9 Type 2 diabetes mellitus without complications (principal); F33.0 Major depressive disorder, recurrent, mild; I10 Essential (primary) hypertension; E78.00 Pure hypercholesterolemia, unspecified; Z23 Encounter for immunization
CPT/HCPCS: 83036; 90471; 90686; 99214

== ENCOUNTER → 2023-01-30 09:34 | Outpatient (REF) | payer OTHER, SELFPAY ==
--- NOTE | 2023-01-30 09:44 | CA_ITS ---
Transthoracic Echocardiogram Patient (Last, First, Middle): Bhavana Lamb, Gender: Female Date of : 1970 Age: 53 Procedure Date: 01/30/2023 Procedure Type: Transthoracic Echocardiogram Location: OP Height: 157.48 cm Weight: 72.58 kg BSA: 1.74 m2 Heart Rate: bpm BP: 122 / 68 mmHg Equipment Technician: GERSON Referring MD: Quin Obrien MD General Dentist/Owner: Duarte Banda MD Symptoms: R01.1 - Cardiac murmur, unspecified Study Quality: Adequate ECG Rhythm: Sinus Conclusions: - 1. Normal LV systolic function with grade 1 diastolic dysfunction 2. Normal cardiac valvular Doppler 3. Normal RV systolic pressure 4. No gross pericardial effusion Findings Left Ventricle Normal left ventricular size, thickness, and systolic function. The visually estimated ejection fraction is between 60-65%. Spectral Doppler is indicative of an impaired relaxation filling pattern. E/E prime ratio is <8, consistent with normal filling pressures. Evidence suggests grade I (mild) diastolic dysfunction. Peak GLS is -20.5%, within normal limits. Right Ventricle Normal right ventricular cavity size and systolic function. Atria Both atria are normal in size. Interatrial shunt cannot be excluded. Aortic Valve The aortic valve structure and function is likely normal. There is no aortic valve stenosis. There is no aortic valve regurgitation. Mitral Valve Normal mitral valve structure and function. There is trace mitral valve regurgitation. There is no mitral valve stenosis. Pulmonic Valve The pulmonic valve is likely normal. There is trace pulmonic valve regurgitation. Tricuspid Valve Normal tricuspid valve structure. There is trace tricuspid valve regurgitation. The right ventricular systolic pressure is normal. The right ventricular systolic pressure is 18 mmHg. Normal right atrial pressure. There is no evidence of pulmonary hypertension. Great Vessels All visible segments of the aorta are normal in size. The pulmonary artery was not well visualized. Venous The inferior vena cava is normal in size and collapses greater than 50% with inspiration. Pericardium/Pleural There is no evidence of pericardial effusion. Measurements 2D Linear Measurements IVSd: 0.91 0.6-0.9/0.6-1.0 cm LVIDd: 4.31 3.9-5.3/4.2-5.9 cm LVIDd Index: 2.48 2.4-3.2/2.2-3.1 cm/m2 LVIDs: 2.50 2.0-3.6 cm LVPWd: 0.81 0.7-1.1 cm LA Diam: 2.80 2.7-3.8/3.0-4.0 cm LAIDs Index: 1.61 1.5-2.3 cm/m2 LV Mass: 145.44 67-162/88-224 g LV Mass Index: 83.59 43-95/49-115 g/m2 LVOT Diam: 2.00 3.0+(-)1.3 cm 2D Systolic Function EF 4C: 66.90 >55% EF 2C: 62.70 >55% EF BiP: 65.60 >55% Mitral Valve MV Pk E: 0.69 MV PK A: 0.73 MV Decel Time: 180.00 E/A: 1.00 E'Lateral: 9.68 E'Medial: 6.53 E/E' Med: 10.60 E/E' Lat: 7.20 PHT: 53.00 MVA PHT: 4.15 Decel Dauphin: 3.86 Aortic Valve AoV Pk Chaz: 1.58 AoV Mn Chaz: 1.09 AoV VTI: 0.32 AoV Pk Grad: 10.00 Aov Mn Grad: 5.00 SHRUTHI Cont.VTI: 1.87 LVOT LVOT Pk Chaz: 1.00 LVOT Mn Chaz: 0.64 LVOT VTI: 0.19 LVOT Pk Grad: 4.00 LVOT Mn Grad: 2.00 LVOT Diam: 2.00 LVOT Area: 3.14 Diastolic Function MV Pk E: 0.69 MV Pk A: 0.73 E/A: 1.00 E'Medial: 6.53 E/E' Med: 10.60 E' Laterial: 9.68 E/E' Lat: 7.20 Right Ventricle TAPSE (mm): 29.00 TVS' Chaz: 12.00 Tricuspid Valve TR Pk Chaz: 1.94 TR Pk Grad: 15.00 RA Press: 3.00 RVSP: 18.00 Great Vessels Aorta Sinus of Valsalva: 2.88 2.0-3.5 cm Ao Asc: 3.00 2.1-3.4 cm Updated in Other Vendor System with Status of Final Duarte Banda MD electronically signed on 01/30/2023 5:16:05 PM with status of Final
[2023-01-30 09:58] LABS: MANUAL DIFF FLAG NO
[2023-01-30 10:30] LABS: Basophils Absolute Auto 0.1 X10*3/uL (0.0-0.2); Eosinophils Absolute Auto 0.3 X10*3/uL (0.0-0.4); Eosinophils Percent Auto 3.5 % (0-4); Hematocrit 38.1 % (37.0-47.0); Hemoglobin 12.5 g/dl (12.0-16.0); Imm Gran Abs Auto 0.02 X10*3/uL (0.00-0.03); Imm Gran Pct Auto 0.3 % (0.0-0.4); Lymphocytes Absolute Auto 1.8 X10*3/uL (1.2-4.9); Lymphocytes Percent Auto 23.7 % (20-40); Mean Corpuscular HGB Conc 32.8 g/dl (31.0-35.0); Mean Corpuscular Hemoglobin 29.7 pg (27.0-33.0); Mean Corpuscular Volume 90.5 fL (80.0-98.0); Monocytes Absolute Auto 0.4 X10*3/uL (0.1-1.2); Monocytes Percent Auto 5.7 % (2-11); Neutrophils Absolute Auto 5.1 x10*3/uL (2.0-8.3); Neutrophils Percent Auto 65.8 % (45-73); Platelet Count 275 X10*3/uL (160-400); Red Blood Count 4.21 X10*6/uL (4.20-5.50); Red Cell Distribution Width 13.7 % (11.0-16.0); White Blood Count 7.8 X10*3/uL (4.8-10.8)
[2023-01-30 11:02] LABS: Microalbum/Creatinine Ratio Ur 3.3 ug/mg cr (<30)
[2023-01-30 11:43] LABS: Alanine Aminotransferase 17 U/L (0-31); Albumin Level 4.2 g/dL (3.5-5.0); Alkaline Phosphatase 69 U/L (39-117); Anion Gap 9 (12-20); Aspartate Amino Transferase 11 U/L (5-31); Bilirubin Total 0.3 mg/dL (0.0-1.0); Blood Urea Nitrogen 13 mg/dL (9-16); Calcium 9.5 mg/dL (8.4-10.2); Carbon Dioxide 30 mmol/L (22-29); Chloride 106 mmol/L (96-108); Cholesterol 117 mg/dL (<200); Estimated Glomerular Filt Rate > 60; Glucose Fasting 127 mg/dL (60-99); HDL Cholesterol 40 mg/dL (>40); Iron 54 mcg/dL (30-160); LDL Cholesterol Calculated 52 mg/dL (<100); Percent Iron Saturation 15 % (15-50); Potassium 4.5 mmol/L (3.3-5.1); Sodium 140 mmol/L (135-145); Total Iron Binding Capacity 362 mcg/dL (228-428); Total Protein 6.8 g/dL (6.5-8.0); Triglycerides 127 mg/dL (<150); Unsaturated Iron Binding 308 ug/dL
[2023-01-30 12:03] LABS: Vitamin D 25-OH Total 39.9 ng/mL (>30)
== END ==
LOC: HO.CARD 09:34
PROVIDERS: PCP Internal Medicine; Visit Provider Internal Medicine
DX: R01.1 Cardiac murmur, unspecified (principal); E55.9 Vitamin D deficiency, unspecified; D64.9 Anemia, unspecified; E11.9 Type 2 diabetes mellitus without complications; E78.5 Hyperlipidemia, unspecified
CPT/HCPCS: 36415; 80053; 80061; 82043; 82306; 82570; 83540; 85025; 93306; 93356

== ENCOUNTER → 2023-01-30 09:44 | Outpatient (BNV) | payer OTHER, SELFPAY | PROVIDERS: PCP Internal Medicine; Visit Provider Internal Medicine Cardiovascular Disease | DX: I51.9 Heart disease, unspecified (principal); R01.1 Cardiac murmur, unspecified | CPT/HCPCS: 93306 ==

== ENCOUNTER 2023-03-18 09:26 | Day surgery (SDC) | payer OTHER, SELFPAY ==
[2023-03-14 11:36] VITALS: BMI 25.7
--- NOTE | 2023-03-15 09:53 | HO.ANESPROP2 ---
Documented by User: Quita Coburn NP 03/15/23 09:54 HPI - Anesthesia Eval Consult details Narrative: 53yo F for Colonoscopy PMFSH Active Problems Active Problems: All Active Problems (Updated 01/02/23 @ 10:49 by Quin Obrien MD) Murmur (Acute) Failed back syndrome (Acute) Essential hypertension (Acute) Pure hypercholesterolemia (Acute) Diabetes mellitus (Acute) GERD (gastroesophageal reflux disease) (Acute) Hypovitaminosis D (Acute) Nicotine dependence, cigarettes, uncomplicated (Acute) Mild recurrent major depression (Acute) Insomnia (Acute) Spondylolisthesis, lumbar region (Acute) Neck pain (Acute) Mass of spine (Acute) Traumatic coccydynia (Acute) Left knee pain (Acute) Left wrist pain (Acute) Left shoulder pain (Acute) Left hand pain (Acute) Hearing loss (Acute) Past Medical History Medical History Nicotine dependence, cigarettes, uncomplicated Essential hypertension Mild recurrent major depression Pure hypercholesterolemia Hypovitaminosis D Failed back syndrome Diabetes mellitus Hearing loss Insomnia Spondylolisthesis, lumbar region GERD (gastroesophageal reflux disease) Family History Family History Father Diabetes Mother Stroke Hypertension Brother Colon cancer Diabetes Family/Other FH: mental illness Family history of problems with anesthesia: No Surgical History Surgical History History of lithotripsy History of colonoscopy History of esophagogastroduodenoscopy S/P insertion of spinal cord stimulator History of lumbar surgery History of arthroplasty of right knee History of Problems with Anesthesia: No Social History Social History Housing: House Alcohol intake: current Alcohol intake frequency: holidays/special occasions only Alcohol type: beer Patient Tobacco Use Status: Current everyday Tobacco user Tobacco use type: Cigarette Cigarettes Per Day: 10 Years Smoked: onset 14yo, 1/2-3/4 ppd x 40yrs, 20+PYH e-Cigarette/Vaping Use: Never Used Second Hand Smoke Exposure: No Use of substances other than those prescribed or required for medical reasons: No Are you DNR?: No Advance Directives: No Advance Directives Information Provided: Yes service: No Current occupational status: disabled Cognitive needs: No Hearing needs: No Vision needs: No Meds Allergies Allergy/AdvReac Type Severity Reaction Status Date / Time metformin Allergy Severe nausea, Verified 03/18/23 09:40 diarreah zaleplon Allergy Severe Rash Verified 03/18/23 09:40 fluoxetine Allergy Intermediate drowsiness Verified 03/18/23 09:40 paroxetine Allergy Intermediate drowsiness Verified 03/18/23 09:40 sertraline [Zoloft] Allergy Intermediate drowsiness Verified 03/18/23 09:40 suvorexant [From [facility]] Allergy Mild Rash Verified 03/18/23 09:40 Home Medications Medication Instructions Recorded Confirmed Last Taken Type venlafaxine 150 mg 150 mg PO DAILY 02/18/20 03/18/23 03/16/23 History capsule,extended release 24 hr estazolam 2 mg tablet 2 mg PO BEDTIME 10/30/21 03/18/23 03/16/23 History aripiprazole 15 mg tablet 15 mg PO QAM depressive disorder 03/26/22 03/18/23 03/16/23 History temazepam 30 mg capsule 30 mg PO BEDTIME 03/26/22 03/18/23 03/16/23 History trazodone 100 mg tablet 100 mg PO BEDTIME 03/26/22 03/18/23 03/16/23 History buspirone 15 mg tablet 30 mg PO BEDTIME 08/02/22 03/18/23 03/16/23 History Exam Height,Weight and Vital Signs: Height 5 ft 6 in Weight 72.121 kg Pertinent Lab Results Pertinent Lab Results: Laboratory Tests 01/30/23 09:57 WBC 7.8 Hgb 12.5 Hct 38.1 Plt Count 275 Sodium 140 Potassium 4.5 Chloride 106 Carbon Dioxide 30 H BUN 13 Creatinine 0.83 Narrative Narrative: ECHO 01/2023 Conclusions: - 1. Normal LV systolic function with grade 1 diastolic dysfunction 2. Normal cardiac valvular Doppler 3. Normal RV systolic pressure 4. No gross pericardial effusion Assessment and Plan Assessment Anesthesia Assessment: Chart Reviewed Final Anesthetic Review Family History of Problems with Anesthesia: No History of Problems with Anesthesia: No Documented by User: Meagan Salmeron MD 03/18/23 09:51 PMFSH Past Medical History Medical History Nicotine dependence, cigarettes, uncomplicated Essential hypertension Mild recurrent major depression Pure hypercholesterolemia Hypovitaminosis D Failed back syndrome Diabetes mellitus Hearing loss Insomnia Spondylolisthesis, lumbar region GERD (gastroesophageal reflux disease) Family History Family History Father Diabetes Mother Stroke Hypertension Brother Colon cancer Diabetes Family/Other FH: mental illness Surgical History Surgical History History of lithotripsy History of colonoscopy History of esophagogastroduodenoscopy S/P insertion of spinal cord stimulator History of lumbar surgery History of arthroplasty of right knee Social History Social History Housing: House Alcohol intake: current Alcohol intake frequency: holidays/special occasions only Alcohol type: beer Patient Tobacco Use Status: Current everyday Tobacco user Tobacco use type: Cigarette Cigarettes Per Day: 10 Years Smoked: onset 14yo, 1/2-3/4 ppd x 40yrs, 20+PYH e-Cigarette/Vaping Use: Never Used Second Hand Smoke Exposure: No Use of substances other than those prescribed or required for medical reasons: No Are you DNR?: No Advance Directives: No Advance Directives Information Provided: Yes service: No Current occupational status: disabled Cognitive needs: No Hearing needs: No Vision needs: No Meds Allergies Allergy/AdvReac Type Severity Reaction Status Date / Time metformin Allergy Severe nausea, Verified 03/18/23 09:40 diarreah zaleplon Allergy Severe Rash Verified 03/18/23 09:40 fluoxetine Allergy Intermediate drowsiness Verified 03/18/23 09:40 paroxetine Allergy Intermediate drowsiness Verified 03/18/23 09:40 sertraline [Zoloft] Allergy Intermediate drowsiness Verified 03/18/23 09:40 suvorexant [From [facility]] Allergy Mild Rash Verified 03/18/23 09:40 Home Medications Medication Instructions Recorded Confirmed Last Taken Type venlafaxine 150 mg 150 mg PO DAILY 02/18/20 03/18/23 03/16/23 History capsule,extended release 24 hr estazolam 2 mg tablet 2 mg PO BEDTIME 10/30/21 03/18/23 03/16/23 History aripiprazole 15 mg tablet 15 mg PO QAM depressive disorder 03/26/22 03/18/23 03/16/23 History temazepam 30 mg capsule 30 mg PO BEDTIME 03/26/22 03/18/23 03/16/23 History trazodone 100 mg tablet 100 mg PO BEDTIME 03/26/22 03/18/23 03/16/23 History buspirone 15 mg tablet 30 mg PO BEDTIME 08/02/22 03/18/23 03/16/23 History Exam Airway Mallampati Class: II TM Dist: >3cm Neck ROM: Limited Denture: Upper Partial: Lower Heart: rrr Lungs: cta Assessment and Plan Assessment Anesthesia Assessment: Anesthesia Plan Discussed Final Anesthetic Review NPO: Yes ASA Class: III Final Preanesthetic Review: No Changes in Pt Med Stat, Meds/Allgs Chart Reviewed, Consent Obtained/Reviewed and Anes Risks/Benef Reviewed Patient Risk: Intermediate Procedure Risk: Low Anesthetic Plan Anesthetic Plan: MAC: Disposition: Standard PACU
[2023-03-18 09:33] VITALS: BMI 25.6
[2023-03-18 09:53] VITALS: BP 126/71; PULSE 89; RESP 16; TEMP 36.1; O2SAT 97
[2023-03-18] MEDS: Lactated Ringers 1,000 ML 100 ML IVCONT (09:54)
[2023-03-18 09:59] LABS: Glucose, Whole Blood 140 mg/dL (60-115)
--- NOTE | 2023-03-18 10:10 | HO.ANESPROP2 ---
[facility] Active Problems Active Problems: All Active Problems (Updated 01/02/23 @ 10:49 by Quin Obrien MD) Murmur (Acute) Failed back syndrome (Acute) Essential hypertension (Acute) Pure hypercholesterolemia (Acute) Diabetes mellitus (Acute) GERD (gastroesophageal reflux disease) (Acute) Hypovitaminosis D (Acute) Nicotine dependence, cigarettes, uncomplicated (Acute) Mild recurrent major depression (Acute) Insomnia (Acute) Spondylolisthesis, lumbar region (Acute) Neck pain (Acute) Mass of spine (Acute) Traumatic coccydynia (Acute) Left knee pain (Acute) Left wrist pain (Acute) Left shoulder pain (Acute) Left hand pain (Acute) Hearing loss (Acute) Past Medical History Medical History Nicotine dependence, cigarettes, uncomplicated Essential hypertension Mild recurrent major depression Pure hypercholesterolemia Hypovitaminosis D Failed back syndrome Diabetes mellitus Hearing loss Insomnia Spondylolisthesis, lumbar region GERD (gastroesophageal reflux disease) Family History Family History Father Diabetes Mother Stroke Hypertension Brother Colon cancer Diabetes Family/Other FH: mental illness Family history of problems with anesthesia: No Surgical History Surgical History History of lithotripsy History of colonoscopy History of esophagogastroduodenoscopy S/P insertion of spinal cord stimulator History of lumbar surgery History of arthroplasty of right knee History of Problems with Anesthesia: No Social History Social History Housing: House Alcohol intake: current Alcohol intake frequency: holidays/special occasions only Alcohol type: beer Patient Tobacco Use Status: Current everyday Tobacco user Tobacco use type: Cigarette Cigarettes Per Day: 10 Years Smoked: onset 14yo, 1/2-3/4 ppd x 40yrs, 20+PYH e-Cigarette/Vaping Use: Never Used Second Hand Smoke Exposure: No Use of substances other than those prescribed or required for medical reasons: No Are you DNR?: No Advance Directives: No Advance Directives Information Provided: Yes service: No Current occupational status: disabled Cognitive needs: No Hearing needs: No Vision needs: No Meds Allergies Allergy/AdvReac Type Severity Reaction Status Date / Time metformin Allergy Severe nausea, Verified 03/18/23 09:40 diarreah zaleplon Allergy Severe Rash Verified 03/18/23 09:40 fluoxetine Allergy Intermediate drowsiness Verified 03/18/23 09:40 paroxetine Allergy Intermediate drowsiness Verified 03/18/23 09:40 sertraline [Zoloft] Allergy Intermediate drowsiness Verified 03/18/23 09:40 suvorexant [From [facility]] Allergy Mild Rash Verified 03/18/23 09:40 Active Medications: Current Medications Albuterol Sulfate (Albuterol Sulfate (0.083%) 2.5 Mg/3 Ml Vial.Neb) 2.5 mg INHALE ONCE PRN PRN Reason: Shortness of Breath/Wheezing Lactated Ringer's (Lr) 1,000 mls @ 100 mls/hr IVCONT .Q10H EVIE Last Admin: 03/18/23 09:54 Dose: 100 mls/hr Home Medications Medication Instructions Recorded Confirmed Last Taken Type venlafaxine 150 mg 150 mg PO DAILY 02/18/20 03/18/23 03/16/23 History capsule,extended release 24 hr estazolam 2 mg tablet 2 mg PO BEDTIME 10/30/21 03/18/23 03/16/23 History aripiprazole 15 mg tablet 15 mg PO QAM depressive disorder 03/26/22 03/18/23 03/16/23 History temazepam 30 mg capsule 30 mg PO BEDTIME 03/26/22 03/18/23 03/16/23 History trazodone 100 mg tablet 100 mg PO BEDTIME 03/26/22 03/18/23 03/16/23 History buspirone 15 mg tablet 30 mg PO BEDTIME 08/02/22 03/18/23 03/16/23 History Exam Height,Weight and Vital Signs: Height 5 ft 6 in Weight 71.838 kg Last Vital Signs Temp 97 F 03/18/23 09:53 Pulse 89 03/18/23 09:53 Resp 16 03/18/23 09:53 BP 126/71 03/18/23 09:53 Pulse Ox 97 03/18/23 09:53 O2 Del Method Room Air 03/18/23 09:53 Pertinent Lab Results Pertinent Lab Results: Laboratory Tests 01/15/24 09:56 POC Glucose 140 H Airway Mallampati Class: II TM Dist: >3cm Neck ROM: Full Heart: rrr Lungs: cta Assessment and Plan Assessment Anesthesia Assessment: Anesthesia Plan Discussed and Chart Reviewed Final Anesthetic Review Family History of Problems with Anesthesia: No History of Problems with Anesthesia: No NPO: Yes ASA Class: III Final Preanesthetic Review: No Changes in Pt Med Stat, Meds/Allgs Chart Reviewed and Consent Obtained/Reviewed Patient Risk: Intermediate Procedure Risk: Intermediate Anesthetic Plan Anesthetic Plan: MAC: Disposition: Standard PACU
--- NOTE | 2023-03-18 10:10 | MHC.SHP ---
Pre-Procedural Eval Section A Date of Service: 03/18/23 The patient is an INPATIENT: No The History & Physical has been completed within 30 days and I have reviewed it.: No Section B Chief Complaint: Colon cancer screening Relevant Family History (Specify if Yes): No Relevant Social History: Tobacco Use Present Medications: see Short Stay Collaborative assessment Medical History: Significant History (Nicotine dependence, cigarettes, uncomplicated Essential hypertension Mild recurrent major depression Pure hypercholesterolemia Hypovitaminosis D Failed back syndrome Diabetes mellitus Hearing loss Insomnia Spondylolisthesis, lumbar region GERD (gastroesophageal reflux disease)) History of Previous Operations: Relevant previous surgery/procedure and date(s) (History of lithotripsy History of colonoscopy History of esophagogastroduodenoscopy S/P insertion of spinal cord stimulator History of lumbar surgery History of arthroplasty of right knee) Allergies: Allergies Allergy/AdvReac Type Severity Reaction Status Date / Time metformin Allergy Severe nausea, Verified 03/18/23 09:40 diarreah zaleplon Allergy Severe Rash Verified 03/18/23 09:40 fluoxetine Allergy Intermediate drowsiness Verified 03/18/23 09:40 paroxetine Allergy Intermediate drowsiness Verified 03/18/23 09:40 sertraline [Zoloft] Allergy Intermediate drowsiness Verified 03/18/23 09:40 suvorexant [From [facility]] Allergy Mild Rash Verified 03/18/23 09:40 Review of Systems Sugical H&P ROS: Negative: Constitution, Cardiovascular, Respiratory and Gastrointestinal Exam Surgical H&P Exam: Normal: Heart, Normal: Lungs, Normal: Extremities and Normal: Abdomen Plan Diagnosis/Plan: Unchanged I have reviewed the history and physical and performed a pertinent physical examination on my patient. No changes have occurred unless specified. Time Spent With Patient Time: Total time managing care of this patient today ____ minutes.
--- NOTE | 2023-03-18 11:06 | P.OP_ITS ---
Operative Note Operative Note Date of Service: 03/18/23 Narrative: COLONOSCOPY TILL CECUM WITH BIOPSIES Pre-op diagnosis: Colon cancer screening (direct access colonoscopy), family hx of colon cancer (brother at age 69 yrs) Post-op diagnosis:? Colon polyps, diverticulosis Endoscopist:Angel Sol MD Anesthesia:?MAC Consent: Indications for the procedure and potential complications of bleeding, perforation, reaction to medications and missed diagnosis were discussed with the patient and informed consent was obtained. Instrument: Olympus PCF H 190 L variable stiffness pediatric colonoscope Monitoring: Vital signs and clinical assessment, intermittent blood pressure monitoring, continuous EKG monitoring, Pulse oximetry and Carbon Dioxide monitoring were done throughout the procedure. Please see anesthesia flowsheet. Colon withdrawl time was 18 minutes. Procedure: The patient was placed in the left lateral decubitis position and pre-procedure medications were administered. After a digital rectal examination of the ano-rectum, the video colonoscope was inserted into the rectum and advanced through the colon to the cecum. The colonoscope was slowly withdrawn in a retrograde panoramic fashion and the colon mucosa was carefully examined including a retroflexed view of the rectum. Findings and interventions are described below. Procedure Difficulty: Without difficulty Findings: Terminal Ileum: Not evaluated Cecum: Normal Ascending Colon: Normal Transverse Colon: Normal Descending Colon: Normal Sigmoid Colon: A 4-5 mm sessile polyp - removed with a cold biopsy. Moderate diverticulosis Rectum: A 3 - 4 mm diminutive appearing polyps - removed with a cold biopsy Ano-rectum: Normal Colon preparation: Good after some irrigation [place] Bowel Preparation Scale Right colon; 2 Transverse colon: 2 Left colon; 2 (0 = Unprepared colon segment with mucosa not seen due to solid stool that cannot be cleared. 1 = Portion of mucosa of the colon segment seen, but other areas of the colon segment not well seen due to staining, residual stool and/or opaque liquid. 2 = Minor amount of residual staining, small fragments of stool and/or opaque liquid, but mucosa of colon segment seen well. 3 = Entire mucosa of colon segment seen well with no residual staining, small fragments of stool or opaque liquid) Impression and Post Procedure Diagnosis: Colonoscopy Findings: two small polyps removed Moderate diverticulosis seen in the sigmoid colon Plan: Await pathology results Patient has an appointment on []in the GI Clinic with [GEO Perez] [Laquita Wolfe NP] [Hortensia Fulton [facility]-] [Marce Sol M.D.]. Repeat Colonoscopy interval based on path results - in 5 years if polyps are adenomatous and due to family hx of colon cancer. Above findings were reviewed with the patient and colon polyps and diverticulosis handouts were given in the discharge area
[2023-03-18 11:40] VITALS: BP 115/65; PULSE 69; RESP 16; TEMP 36.7; O2SAT 99
[2023-03-18 11:55] VITALS: BP 132/56; PULSE 67; RESP 15; TEMP 36.1; O2SAT 98
== END 2023-03-18 12:50 | disposition home or self-care (01) ==
PROVIDERS: PCP Internal Medicine; Visit Provider Internal Medicine Gastroenterology
PROC: 0DJD8ZZ Inspection of Lower Intestinal Tract, Via Natural or Artificial Opening Endoscopic (ICD-10-PCS; CPT 45378; principal; 2023-03-18 11:00)
DX: Z12.11 Encounter for screening for malignant neoplasm of colon (principal); Z80.0 Family history of malignant neoplasm of digestive organs; K63.5 Polyp of colon; K62.1 Rectal polyp; K57.30 Diverticulosis of large intestine without perforation or abscess without bleeding; K21.9 Gastro-esophageal reflux disease without esophagitis; I10 Essential (primary) hypertension; D64.9 Anemia, unspecified; E78.00 Pure hypercholesterolemia, unspecified; E11.9 Type 2 diabetes mellitus without complications; F33.0 Major depressive disorder, recurrent, mild; M54.50 Low back pain, unspecified; M96.1 Postlaminectomy syndrome, not elsewhere classified; Z79.899 Other long term (current) drug therapy; Z88.8 Allergy status to other drugs, medicaments and biological substances; F17.210 Nicotine dependence, cigarettes, uncomplicated
CPT/HCPCS: 45380; 82947; 88305; J2704

== ENCOUNTER → 2023-03-18 09:26 | Outpatient (BNV) | payer OTHER, SELFPAY | PROVIDERS: PCP Internal Medicine; Visit Provider Internal Medicine Gastroenterology | DX: Z12.11 Encounter for screening for malignant neoplasm of colon (principal); K63.5 Polyp of colon; K57.30 Diverticulosis of large intestine without perforation or abscess without bleeding | CPT/HCPCS: 45380 ==

== ENCOUNTER → 2023-03-21 10:30 | Outpatient (BNV) | payer OTHER, SELFPAY | PROVIDERS: PCP Internal Medicine; Visit Provider Radiology Diagnostic Radiology | DX: Z12.31 Encounter for screening mammogram for malignant neoplasm of breast (principal) | CPT/HCPCS: 77063; 77067 ==

== ENCOUNTER 2023-03-21 10:39 | Outpatient (REF) | payer OTHER, SELFPAY | END 2023-03-21 10:40 | disposition home or self-care (01) | LOC: HO.MAMMO 10:39 | PROVIDERS: PCP Internal Medicine; Visit Provider Internal Medicine | DX: Z12.31 Encounter for screening mammogram for malignant neoplasm of breast (principal) | CPT/HCPCS: 77063; 77067 ==

== ENCOUNTER 2023-03-28 09:19 | Outpatient (AMB) | payer OTHER, SELFPAY ==
--- NOTE | 2023-03-28 09:20 | MHC.PC.OV ---
Vital Signs 03/28/23 09:22 Height 5 ft 6 in Weight 157 lb BMI 25.3 BP 112/70 Blood Pressure Location Lt brachial Position Sitting Intake Visit Reasons: Annual Exam Intake Note: Patient here for a physical exam Community Engagement Representative Required: No Accompanied by: Self / Same As Patient Allergies metformin Allergy (Severe, Verified 03/28/23 09:36) nausea, diarreah zaleplon Allergy (Severe, Verified 03/28/23 09:36) Rash fluoxetine Allergy (Intermediate, Verified 03/28/23 09:36) drowsiness paroxetine Allergy (Intermediate, Verified 03/28/23 09:36) drowsiness sertraline [Zoloft] Allergy (Intermediate, Verified 03/28/23 09:36) drowsiness suvorexant [From Belsomra] Allergy (Mild, Verified 03/28/23 09:36) Rash Medication List - Last Reconciled 03/28/23 by Quin Obrien MD aripiprazole 15 mg PO QAM arm brace (Wrist Brace Medium) As directed baclofen 20 mg PO TID 30 days blood sugar diagnostic (FreeStyle Test strips) Use 1 test strip once a day blood-glucose meter (FreeStyle [place] Lite kit) As directed buspirone 30 mg PO BEDTIME cetirizine (All Day Allergy (cetirizine)) 10 mg (10 mL) PO DAILY PRN 30 days cholecalciferol (vitamin D3) 25 mcg PO DAILY 90 days estazolam 2 mg PO BEDTIME fluocinolone acetonide oil 0.01% (DermOtic Oil) 5 drps otic (ears) BID 7 days lancets (FreeStyle Lancets) Use 1 lancet once a day lisinopril 5 mg PO BID 90 days oxycodone 10 mg PO Q4-6H PRN 30 days pantoprazole 40 mg PO DAILY 90 days pioglitazone 15 mg PO DAILY 90 days rosuvastatin 20 mg PO DAILY 90 days sucralfate 1 g PO BID temazepam 30 mg PO BEDTIME trazodone 100 mg PO BEDTIME venlafaxine ER 150 mg PO DAILY Tobacco use date assessed: 03/28/23 Dental Screening Dental Screen Date: 03/28/23 Did you have a dental visit in the last 12 months?: No Did you have a dental problem in the last 6 months where you did not have access to dental care?: No Was dental information given to patient?: Patient has dentist HPI HPI Comments History of Present Illness Details This is a 53-year-old female with diabetes mellitus type 2 and mild recurrent major depression that comes for her physical exam. Last A1c was within goal. Depression stable with medications and this is follow by Psychiatry. Last mammogram was March 2023 and results are still pending. Last colonoscopy was this month showing hyperplastic polyps but she has family history of colon cancer therefore next colonoscopy should be in 5 years. Last Pap smear as per patient was about 2 years ago and was normal. No chest pain or shortness of breath. [facility] Medical History Nicotine dependence, cigarettes, uncomplicated Essential hypertension Mild recurrent major depression Pure hypercholesterolemia Hypovitaminosis D Failed back syndrome Diabetes mellitus Hearing loss Insomnia Spondylolisthesis, lumbar region GERD (gastroesophageal reflux disease) Surgical History History of lithotripsy History of colonoscopy History of esophagogastroduodenoscopy S/P insertion of spinal cord stimulator History of lumbar surgery History of arthroplasty of right knee Family History (Updated 03/28/23 @ 09:45 by Quin Obrien MD) Father Diabetes Mother Stroke Hypertension Brother Colon cancer Diabetes Family/Other FH: mental illness Sister Breast cancer Social History (Updated 03/28/23 @ 09:51 by Quin Obrien MD) Housing: House Alcohol intake: current Alcohol intake frequency: holidays/special occasions only Alcohol type: beer Patient Tobacco Use Status: Current everyday Tobacco user Tobacco use type: Cigarette Cigarettes Per Day: 5 Years Smoked: onset 14yo, 1/2-3/4 ppd x 40yrs, 20+PYH e-Cigarette/Vaping Use: Never Used Second Hand Smoke Exposure: No service: No Current occupational status: disabled Cognitive needs: No Hearing needs: No Vision needs: No Questionnaire PHQ-9 Over the last 2 weeks, how often have you been bothered by any of the following problems? 1. Little interest or pleasure in doing things: more than half the days 2. Feeling down, depressed, or hopeless: nearly every day 3. Trouble falling or staying asleep, or sleeping too much: not at all 4. Feeling tired or having little energy: nearly every day 5. Poor appetite or overeating: several days 6. Feeling bad about yourself - or that you are a failure or have let yourself or your family down: not at all 7. Trouble concentrating on things, such as reading the newspaper or watching television: more than half the days 8. Moving or speaking so slowly that other people could have noticed. Or the opposite - being so fidgety or restless that you have been moving around a lot more than usual: nearly every day 9. Thoughts that you would be better off or of hurting yourself in some way: not at all Total score: 14 Depression Screening Interpretation: Positive Depression Screening Follow-up: Existing condition, In treatment and Community Mental Health Worker F/U Depression Screening Done: Yes 88220 - PHQ-9 Billing: Yes Source: Developed by Drs. Juan Gonzalez, Allison Casper, Jhony Bazan and colleagues, with an educational tay from [employer]. Thrive Questionnaire Date Thrive assessed: 03/28/23 I am a: Patient What is your living situation today?: I have a steady place to live Within the past 12 months, did the food you bought not last and you didn't have the money to get more?: Never true Within the past 12 months, did you worry whether your food would run out before you got money to buy more?: Never true Do you have trouble paying for medicines?: No Do you have trouble getting transportation to medical appointments?: No Do you have trouble paying your heating and electricity bill?: No Do you have trouble taking care of your child, family member or friend?: No Do you have trouble with day-to-day activities such as bathing, preparing meals, shopping, managing finances, etc.?: No Are you currently unemployed and looking for a job?: No Are you interested in more education?: No Please select the resources that you would like help with: None Currently or been in a relationship where the following occur: no concerns reported THRIVE Score: 0 AUDIT C Alcohol Use Questionnaire (AUDIT-C) 1. How often do you have a drink containing alcohol?: Monthly or less 2. How many drinks containing alcohol do you have on a typical day when you are drinking?: 1 or 2 3. How often do you have six or more drinks on one occasion?: Never Total Score: 1 Score Reviewed/Action Taken: No YAHAIRA-7 AMB Questionnaire YAHAIRA-7 Date YAHAIRA - 7 assessed: 03/28/23 Feeling nervous, anxious, or on edge: 3 = Nearly every day Not being able to stop or control worryin = Not at all Worrying too much about different things: 0 = Not at all Trouble relaxin = More than half the days Being so restless that it is hard to sit still: 0 = Not at all Becoming easily annoyed or irritable: 1 = Several days Feeling afraid as if something awful might happen: 0 = Not at all Total YAHAIRA-7 score (0-4 normal; 5-9 mild; 10-14 moderate; 15-21 severe): 6 Source: Developed by Drs. Juan Gonzalez, Allison Casper, Jhony Bazan and colleagues, with an educational tay from [employer]. YAHAIRA-7 Assessment Billing YAHAIRA-7 Assessment Tool: YAHAIRA-7 Assessment 46003 Review of Systems Const All systems reviewed & are unremarkable except as noted in HPI and below Eyes Reports no additional complaints, Denies change in vision and Denies other visual disturbances Card Denies chest pain at rest, Denies chest pain with activity, Denies edema, Denies irregular heart rhythm, Denies claudication, Denies dyspnea, Denies dyspnea on exertion, Denies orthopnea, Denies paroxysmal nocturnal dyspnea and Denies slow heart rate Resp Denies cough, Denies dyspnea and Denies dyspnea on exertion GI Denies abdominal pain, Denies change in bowel habits, Denies excessive flatus, Denies nausea and Denies vomiting Denies urinary incontinence, Denies urinary hesitancy and Denies urinary urgency Musc Denies abnormal gait, Denies atrophy, Denies deformity and Denies limited range of motion Skin/Breast Denies bleeding lesions, Denies changing lesions and Denies rash Neuro Denies abnormal gait, Denies behavioral changes, Denies confusion and Denies lack of coordination Psych Denies behavioral changes and Denies confusion Physical exam (Primary Care) Vital Signs: Last Vital Signs BP 112/70 03/28/23 09:22 BMI result Body Mass Index 25.3 Tobacco/Smoking Status: Tobacco use Status Tobacco use date assessed 03/28/23 03/28/23 09:29 Patient Tobacco Use Status Current everyday Tobacco 03/28/23 09:29 Tobacco use type Cigarette 03/28/23 09:29 e-Cigarette/Vaping Use Never Used 03/28/23 09:29 PHQ-9: PHQ-9 Score PHQ-9: Total score 14 03/28/23 09:29 Depression Screening Interpretation: Positive Depression Screening Follow-up: Existing condition, In treatment and Community Mental Health Worker F/U Thrive Assessment: Date of Thrive Assessment Date Thrive assessed 03/28/23 03/28/23 09:29 Currently or been in a relationship where the following occur: no concerns reported Const General: No confusion Orientation/consciousness: patient oriented x3 and No confusion HENMT Head: Yes normal to inspection, Yes normocephalic and Yes atraumatic Ears: external ears normal Eyes General: appearance normal, both eyes and all related structures Eyelids: Yes eyelids normal Conjunctivae: conjunctivae normal Neck Neck: Yes normal visual inspection and Yes supple Resp Effort & Inspection: normal respiratory effort Auscultation: clear to auscultation bilaterally Cardio Jugular venous distension: no JVD Rate: regular rate Rhythm: regular rhythm Heart sounds: S1 normal heart sound present and S2 normal heart sound present GI Inspection: Yes normal to inspection Palpation (GI): Soft to palpation and nontender Auscultation: normal bowel sounds Skin General skin exam: no rashes or lesions noted Neuro General: patient oriented x3, no focal motor deficits and No confusion Extrem General: Yes full ROM Psych Appearance: grossly normal Assessment and Plan Assessment & Plan (1) Physical exam: Code(s): Z00.00 - Encounter for general adult medical examination without abnormal findings Plan: Repeat in a year. (2) Mild recurrent major depression: Code(s): F33.0 - Major depressive disorder, recurrent, mild Plan: Continue paroxetine. Follow-up with psychiatry. (3) Diabetes mellitus: Code(s): E11.9 - Type 2 diabetes mellitus without complications Qualifiers: Diabetes mellitus type: type 2 Diabetes mellitus exterminator helper insulin use: without exterminator helper use Diabetes mellitus complication status: without complication Qualified Code(s): E11.9 - Type 2 diabetes mellitus without complications Plan: Continue Actos. A1c goal is equal or less than 7%. Orders: Orders Vitamin D 25-OH Total 4 Months E55.9 - Vitamin D deficiency, unspecified Comprehensive [place]. Panel Fast 4 Months I10 - Essential (primary) hypertension Lipid Panel 4 Months E78.5 - Hyperlipidemia, unspecified Microalbumin, Random (w Creat) 4 Months E11.9 - Type 2 diabetes mellitus without complications Medications: Refilled cholecalciferol (vitamin D3) 25 mcg PO DAILY 90 days 90 caps 2RF E55.9 - Vitamin D deficiency, unspecified cetirizine (All Day Allergy (cetirizine)) 10 mg (10 mL) PO DAILY 30 days PRN 120 mL 2RF allergy symptoms Coding Level of Care Code Est Pt Prev Care 40-64y(44436) Diagnoses Physical exam Z00.00 Mild recurrent major depression F33.0 Type 2 diabetes mellitus without complication, without long-term current use of insulin E11.9 Diabetes mellitus type: type 2 Diabetes mellitus fdc insulin use: without fdc use Diabetes mellitus complication status: without complication Additional Codes YAHAIRA-7 Assessment Billing - YAHAIRA-7 Assessment Tool: YAHAIRA-7 Assessment [id number] ([id number]) Time Spent (min) 32
[2023-03-28 09:22] VITALS: BP 112/70; BMI 25.3
== END 2023-03-28 09:51 | disposition home or self-care (01) ==
PROVIDERS: Visit Provider Internal Medicine
DX: Z00.00 Encounter for general adult medical examination without abnormal findings (principal); F33.0 Major depressive disorder, recurrent, mild; E11.9 Type 2 diabetes mellitus without complications
CPT/HCPCS: 96127; 99396

== ENCOUNTER → 2023-05-02 23:59 | Outpatient (BNV) | payer OTHER, SELFPAY | PROVIDERS: PCP Internal Medicine; Visit Provider Internal Medicine | DX: F41.1 Generalized anxiety disorder (principal); M54.50 Low back pain, unspecified; M17.0 Bilateral primary osteoarthritis of knee | CPT/HCPCS: G0179 ==

== ENCOUNTER 2023-08-08 10:49 | Outpatient (AMB) | payer OTHER, SELFPAY ==
--- NOTE | 2023-08-08 10:50 | A.OFFPC_ITS ---
Intake Visit Reasons: dm/[phone] Credit Interviewer Required: No Accompanied by: Self / Same As Patient Allergies metformin Allergy (Severe, Verified 08/08/23 11:37) nausea, diarreah zaleplon Allergy (Severe, Verified 08/08/23 11:37) Rash fluoxetine Allergy (Intermediate, Verified 08/08/23 11:37) drowsiness paroxetine Allergy (Intermediate, Verified 08/08/23 11:37) drowsiness sertraline [Zoloft] Allergy (Intermediate, Verified 08/08/23 11:37) drowsiness suvorexant [From Belsomra] Allergy (Mild, Verified 08/08/23 11:37) Rash Medication List - Last Reconciled 08/08/23 by Quin Obrien MD aripiprazole 15 mg PO QAM arm brace (Wrist Brace Medium) As directed baclofen 20 mg PO TID 30 days blood sugar diagnostic (FreeStyle Test strips) Use 1 test strip once a day blood-glucose meter (FreeStyle [place] Lite kit) As directed buspirone 30 mg PO BEDTIME cetirizine (All Day Allergy (cetirizine)) 10 mg (10 mL) PO DAILY PRN 30 days cholecalciferol (vitamin D3) 25 mcg PO DAILY 90 days doxycycline hyclate 100 mg PO BID 5 days estazolam 2 mg PO BEDTIME fluocinolone acetonide oil 0.01% (DermOtic Oil) 5 drps otic (ears) BID 7 days lancets (FreeStyle Lancets) Use 1 lancet once a day lisinopril 5 mg PO BID 90 days oxycodone 10 mg PO Q4-6H PRN 30 days pantoprazole 40 mg PO DAILY 90 days pioglitazone 15 mg PO DAILY 90 days rosuvastatin 20 mg PO DAILY 90 days sucralfate 1 g PO BID temazepam 30 mg PO BEDTIME trazodone 100 mg PO BEDTIME venlafaxine ER 150 mg PO DAILY Tobacco use date assessed: 03/28/23 Dental Screening Dental Screen Date: 03/28/23 HPI HPI Comments History of Present Illness Details This is a 53-year-old female with diabetes mellitus type 2, hypertension, pure hypercholesterolemia, GERD and mild recurrent major depression that has tele health visit by video complaining of persistent headaches in the occiput that has been present on a daily basis for the past 2 months. No neurological deficit associated with it. Also has been complaining of left hearing loss and deaf runs in her family. Blood glucose today was 140. Blood pressure has been stable at home. On statins for her elevated cholesterol. GERD stable with PPIs. Mild recurrent major depression is follow by Psychiatry and has been stable with venlafaxine. [facility] Medical History (Updated 08/08/23 @ 11:35 by Quin Obrien MD) Nicotine dependence, cigarettes, uncomplicated Essential hypertension Mild recurrent major depression Pure hypercholesterolemia Hypovitaminosis D Failed back syndrome Diabetes mellitus Hearing loss Insomnia Spondylolisthesis, lumbar region GERD (gastroesophageal reflux disease) Surgical History History of lithotripsy History of colonoscopy History of esophagogastroduodenoscopy S/P insertion of spinal cord stimulator History of lumbar surgery History of arthroplasty of right knee Family History Father Diabetes Mother Stroke Hypertension Brother Colon cancer Diabetes Family/Other FH: mental illness Sister Breast cancer Social History Housing: House Alcohol intake: current Alcohol intake frequency: holidays/special occasions only Alcohol type: beer Patient Tobacco Use Status: Current everyday Tobacco user Tobacco use type: Cigarette Cigarettes Per Day: 5 Years Smoked: onset 14yo, 1/2-3/4 ppd x 40yrs, 20+PYH Packs per year/per ci.00 e-Cigarette/Vaping Use: Never Used Second Hand Smoke Exposure: No service: No Current occupational status: disabled Cognitive needs: No Hearing needs: No Vision needs: No Questionnaire PHQ-9 Over the last 2 weeks, how often have you been bothered by any of the following problems? 1. Little interest or pleasure in doing things: several days 2. Feeling down, depressed, or hopeless: several days 3. Trouble falling or staying asleep, or sleeping too much: several days 4. Feeling tired or having little energy: several days 5. Poor appetite or overeating: not at all 6. Feeling bad about yourself - or that you are a failure or have let yourself or your family down: not at all 7. Trouble concentrating on things, such as reading the newspaper or watching television: not at all 8. Moving or speaking so slowly that other people could have noticed. Or the opposite - being so fidgety or restless that you have been moving around a lot more than usual: not at all 9. Thoughts that you would be better off or of hurting yourself in some way: not at all Total score: 4 Depression Screening Interpretation: Positive Depression Screening Follow-up: Existing condition, In treatment, Community Mental Health Worker F/U and Follow- up Visit Requested Depression Screening Done: Yes 15574 - PHQ-9 Billing: Yes Source: Developed by Drs. Juan Gonzalez, Allison Casper, Jhony Bazan and colleagues, with an educational tay from [employer]. Thrive Questionnaire Date Thrive assessed: 03/28/23 YAHAIRA-7 AMB Questionnaire YAHAIRA-7 Date YAHAIRA - 7 assessed: 03/28/23 Source: Developed by Drs. Juan Gonzalez, Allison Casper, Jhony Bazan and colleagues, with an educational tay from [employer]. Review of Systems Const All systems reviewed & are unremarkable except as noted in HPI and below Card Denies chest pain at rest, Denies chest pain with activity, Denies edema, Denies irregular heart rhythm, Denies claudication, Denies orthopnea, Denies paroxysmal nocturnal dyspnea and Denies slow heart rate Neuro Denies confusion Psych Denies confusion Physical exam (Primary Care) Tobacco/Smoking Status: Tobacco use Status Tobacco use date assessed 03/28/23 08/08/23 10:52 Patient Tobacco Use Status Current everyday Tobacco 08/08/23 10:52 Tobacco use type Cigarette 08/08/23 10:52 e-Cigarette/Vaping Use Never Used 08/08/23 10:52 Depression Screening Interpretation: Positive Depression Screening Follow-up: Existing condition, In treatment, Community Mental Health Worker F/U and Follow- up Visit Requested Thrive Assessment: Date of Thrive Assessment Date Thrive assessed 03/28/23 08/08/23 10:52 Const General: No confusion Orientation/consciousness: No confusion HENMT Head: Yes normocephalic and Yes atraumatic General nose exam: No nasal discharge present Mouth: lip normal Neuro General: No confusion Extrem General: Yes full ROM Telehealth Telehealth Telehealth Platform: [employer] Location of provider rendering services: practice address Location of patient: address on file Patient Identification confirmed using: Name, : Yes Telehealth method: video Patient verbally consented to treatment: Yes Patient verbally consented to billing insurance company: Yes Patient informed of any privacy concerns related to visit: Yes Minutes spent on Phone/Video with Pt.: 16 Assessment and Plan Assessment & Plan (1) Diabetes mellitus: Code(s): E11.9 - Type 2 diabetes mellitus without complications Qualifiers: Diabetes mellitus type: type 2 Diabetes mellitus ocean transportation intermediary insulin use: without skilled nursing use Diabetes mellitus complication status: without complication Qualified Code(s): E11.9 - Type 2 diabetes mellitus without complications Plan: Continue Actos. A1c goal is equal or less than 7%. (2) GERD (gastroesophageal reflux disease): Code(s): K21.9 - Gastro-esophageal reflux disease without esophagitis Qualifiers: Esophagitis presence: esophagitis presence not specified Qualified Code(s): K21.9 - Gastro-esophageal reflux disease without esophagitis Plan: Continue PPIs. (3) Occipital headache: Code(s): R51.9 - Headache, unspecified Plan: MRI ordered. (4) Mild recurrent major depression: Code(s): F33.0 - Major depressive disorder, recurrent, mild Plan: Continue venlafaxine. Follow-up with psychiatry. (5) Essential hypertension: Code(s): I10 - Essential (primary) hypertension Plan: Continue lisinopril. Blood pressure goal is equal or less than 130/80. (6) Pure hypercholesterolemia: Code(s): E78.00 - Pure hypercholesterolemia, unspecified Plan: Continue statins. LDL goal should be less than 70. Orders: Orders MR head/brain wo con Today R51.9 - Headache, unspecified Medications: New doxycycline hyclate 100 mg PO BID 5 days 10 tabs 0RF Refilled cetirizine (All Day Allergy (cetirizine)) 10 mg (10 mL) PO DAILY 30 days PRN 120 mL 2RF allergy symptoms Coding Level of Care Code Tele Est Pt Level 4 (54964) Complex EM visit Add On G2211 Diagnoses Type 2 diabetes mellitus without complication, without long-term current use of insulin E11.9 Diabetes mellitus type: type 2 Diabetes mellitus ocean transportation intermediary insulin use: without skilled nursing use Diabetes mellitus complication status: without complication Gastroesophageal reflux disease, unspecified whether esophagitis present K21.9 Esophagitis presence: esophagitis presence not specified Occipital headache R51.9 Mild recurrent major depression F33.0 Essential hypertension I10 Pure hypercholesterolemia E78.00 Time Spent (min) 16
== END 2023-08-08 14:53 | disposition home or self-care (01) ==
LOC: HO.HMGH 10:49
PROVIDERS: PCP Internal Medicine; Visit Provider Internal Medicine
DX: E11.9 Type 2 diabetes mellitus without complications (principal); F33.0 Major depressive disorder, recurrent, mild; K21.9 Gastro-esophageal reflux disease without esophagitis; R51.9 Headache, unspecified; I10 Essential (primary) hypertension; E78.00 Pure hypercholesterolemia, unspecified
CPT/HCPCS: 99214; G2211

== ENCOUNTER 2023-08-26 09:10 | Outpatient (AMB) | payer OTHER, SELFPAY ==
--- NOTE | 2023-08-26 09:14 | A.OFFVIS_ITS ---
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 Name: Елена # [id number] Allergies metformin Allergy (Severe, Verified 08/26/23 09:18) nausea, diarreah zaleplon Allergy (Severe, Verified 08/26/23 09:18) Rash fluoxetine Allergy (Intermediate, Verified 08/26/23 09:18) drowsiness paroxetine Allergy (Intermediate, Verified 08/26/23 09:18) drowsiness sertraline [Zoloft] Allergy (Intermediate, Verified 08/26/23 09:18) drowsiness suvorexant [From Belsomra] Allergy (Mild, Verified 08/26/23 09:18) Rash Medication List - Last Reconciled 08/26/23 by Debora Luu LPN aripiprazole 15 mg PO QAM arm brace (Wrist Brace Medium) As directed baclofen 20 mg PO TID 30 days blood sugar diagnostic (FreeStyle Test strips) Use 1 test strip once a day blood-glucose meter (FreeStyle [place] Lite kit) As directed buspirone 30 mg PO BEDTIME cetirizine (All Day Allergy (cetirizine)) 10 mg (10 mL) PO DAILY PRN 30 days cholecalciferol (vitamin D3) 25 mcg PO DAILY 90 days estazolam 2 mg PO BEDTIME fluocinolone acetonide oil 0.01% (DermOtic Oil) 5 drps otic (ears) BID 7 days lancets (FreeStyle Lancets) Use 1 lancet once a day lisinopril 5 mg PO BID 90 days oxycodone 10 mg PO Q4-6H PRN 30 days pantoprazole 40 mg PO DAILY 90 days pioglitazone 15 mg PO DAILY 90 days rosuvastatin 20 mg PO DAILY 90 days sucralfate 1 g PO BID temazepam 30 mg PO BEDTIME trazodone 100 mg PO BEDTIME venlafaxine ER 150 mg PO DAILY HPI HPI BACK PAIN AT [facility] SITE: Details: 53-year-old female who presents today to the office for a back pain at the [facility] site. A certified per diem interpreter was present during the visit. She reports back pain that radiates down to her feet. She also reports swelling in her feet that is new and started three weeks ago. The pain is localized in the mid-back region. She is unable to stand from the sitting position. She denies any trauma or accidents. She met Yolande in December 2022 with no benefit. She constantly uses a stimulation device. Her pain symptoms on the last visit were somewhat improved. She has a history of hypertension and takes medication. She has not tried compression stockings. She elevates her leg at home but swelling does not improve for three days. Past procedures 11/22/21: Lumbar SCS IPG replacement: % relief. [facility] Medical History Nicotine dependence, cigarettes, uncomplicated Essential hypertension Mild recurrent major depression Pure hypercholesterolemia Hypovitaminosis D Failed back syndrome Diabetes mellitus Hearing loss Insomnia Spondylolisthesis, lumbar region GERD (gastroesophageal reflux disease) Surgical History History of lithotripsy History of colonoscopy History of esophagogastroduodenoscopy S/P insertion of spinal cord stimulator History of lumbar surgery History of arthroplasty of right knee Family History Father Diabetes Mother Stroke Hypertension Brother Colon cancer Diabetes Family/Other FH: mental illness Sister Breast cancer Social History Housing: House Alcohol intake: current Alcohol intake frequency: holidays/special occasions only Alcohol type: beer Patient Tobacco Use Status: Current everyday Tobacco user Tobacco use type: Cigarette Cigarettes Per Day: 5 Years Smoked: onset 14yo, 1/2-3/4 ppd x 40yrs, 20+PYH e-Cigarette/Vaping Use: Never Used Second Hand Smoke Exposure: No service: No Current occupational status: disabled Cognitive needs: No Hearing needs: No Vision needs: No Review of Systems Const All systems reviewed & are unremarkable except as noted in HPI and below Physical Exam Vital Signs: Last Vital Signs Pulse 80 08/26/23 09:17 Resp 14 08/26/23 09:17 BP 128/78 08/26/23 09:17 Pulse Ox 96 08/26/23 09:17 Oxygen Delivery Method Room Air 08/26/23 09:17 BMI result Body Mass Index 25.3 General: Appears afebrile. Alert and oriented. Mood and affect appropriate. Follows and participates in conversation appropriately. Respiratory effort is unlabored. Able to transition from sit to stand unassisted. Ambulates with bilaterally normal heel strike and toe off. Quality Reporting (2019) Adult ([facility] 138/04/25/68) Smoking risk assessment performed?: Yes Patient Tobacco Use Status: Current everyday Tobacco user Results Reviewed Results Reviewed: No imaging is available for review. Assessment & Plan Assessment & Plan (1) Failed back syndrome: Code(s): M96.1 - Postlaminectomy syndrome, not elsewhere classified Category: Medical Plan Sudden worsening of low back pain, evidently due to loss of SCS efficacy. I told her to turn off her SCS for a period of two to three weeks for a stimulation holiday. She will then return to the clinic to turn the device back on and reprogramme with the [employer] medical detail representative available. For her lower extremity swelling, I counseled her on different potential causes of lower extremity swelling, including vascular and cardiac causes. I encourage her to start using compression stockings and elevate her legs as needed for symptomatic relief of lower extremity swelling. The patient expressed understanding. Scribed for Dr. Joseph by Pancho Weldon, medical lab director, on 08/26/2023. I, Dr. Joseph, have personally reviewed and agree with the information entered by the scribe. Coding Level of Care Code Est Pt Level 3 (06380) Diagnoses Failed back syndrome M96.1
[2023-08-26 09:17] VITALS: BP 128/78; PULSE 80; RESP 14; O2SAT 96; BMI 25.3
== END 2023-08-26 09:46 | disposition home or self-care (01) ==
LOC: HO.PMC 09:10
PROVIDERS: PCP Internal Medicine; Visit Provider Internal Medicine
DX: M96.1 Postlaminectomy syndrome, not elsewhere classified (principal)
CPT/HCPCS: 99213

== ENCOUNTER → 2023-08-26 09:10 | Outpatient (BNVA) | payer MEDICARE, SELFPAY | PROVIDERS: PCP Internal Medicine; Visit Provider Internal Medicine | DX: M96.1 Postlaminectomy syndrome, not elsewhere classified (principal) | CPT/HCPCS: 99212 ==

== ENCOUNTER 2023-09-26 15:46 | Outpatient (REF) | payer MEDICARE, MEDICAID, SELFPAY ==
--- NOTE | ~2023-09-26 | MR_ITS ---
MRI OF THE BRAIN WITHOUT IV CONTRAST INDICATION: Headache. COMPARISON: None available. TECHNIQUE: Multiplanar multisequence MR imaging of the brain was obtained without IV contrast. FINDINGS: There is no hydrocephalus, extra-axial surface collection, or herniation. There are mild T2 signal changes concentrated within the bifrontal white matter which could be seen as the sequela of migraine headaches or underlying mild chronic microangiopathy. The major flow voids at the skull base are preserved. There is no acute infarct on diffusion-weighted imaging. There is no intracranial hemorrhage on the gradient recalled echo acquisition. The midline structures are normal. The cerebellar tonsils are normally positioned. The cerebellum and brainstem are normal. The craniocervical junction is normal. Osseous marrow signal intensity is homogenous. The visualized soft tissues are unremarkable. There is mild mucosal thickening within the maxillary sinuses and sphenoid sinuses bilaterally and there is moderate mucosal thickening within the ethmoid air cells bilaterally and the left frontal sinus. Small left mastoid effusion. MR/MR head/brain wo con IMPRESSION: * There are mild T2 signal changes concentrated within the bifrontal white matter which could be seen as the sequela of migraine headaches or underlying mild chronic microangiopathy. * There is mild mucosal thickening within the maxillary sinuses and sphenoid sinuses bilaterally and there is moderate mucosal thickening within the ethmoid air cells bilaterally and the left frontal sinus. Small left mastoid effusion. Electronically signed by: Anthony Dozier MD 10/27/2023 02:39 PM EDT
== END 2023-09-26 15:47 | disposition home or self-care (01) ==
LOC: HO.MRI 15:46
PROVIDERS: PCP Internal Medicine; Visit Provider Internal Medicine
DX: R51.9 Headache, unspecified (principal)
CPT/HCPCS: 70551

== ENCOUNTER 2023-12-04 10:01 | Outpatient (AMB) | payer OTHER, MEDICAID, SELFPAY ==
--- NOTE | 2023-12-04 10:09 | AM.OFFVISNUR ---
Intake Visit Reasons: flu shot Allergies metformin Allergy (Severe, Verified 08/26/23 09:18) nausea, diarreah zaleplon Allergy (Severe, Verified 08/26/23 09:18) Rash fluoxetine Allergy (Intermediate, Verified 08/26/23 09:18) drowsiness paroxetine Allergy (Intermediate, Verified 08/26/23 09:18) drowsiness sertraline [Zoloft] Allergy (Intermediate, Verified 08/26/23 09:18) drowsiness suvorexant [From Belsomra] Allergy (Mild, Verified 08/26/23 09:18) Rash Office Procedures Flu Questionnaire Does the patient have a severe egg allergy?: No Does the patient have severe life threatening allergies?: No Does the patient have a fever or illness today?: No Has the patient ever had Guillain-[place] Syndrome?: No Has the patient ever had any past reaction to a flu shot?: No Assessment & Plan Assessment & Plan Orders: Orders Influenza [id number] Immunization Today Z23 - Encounter for immunization Medications: New Fluarix Triv [id number] (PF) (flu vacc [id number] 6mos up(PF)) 0.5 mL IM ONCE 0.5 mL 0RF NS Z23 - Encounter for immunization
== END 2023-12-04 10:16 | disposition home or self-care (01) ==
PROVIDERS: PCP Internal Medicine; Visit Provider Internal Medicine
DX: Z23 Encounter for immunization (principal)

== ENCOUNTER → 2023-12-04 10:01 | Outpatient (BNVA) | payer OTHER, MEDICAID, SELFPAY | PROVIDERS: PCP Internal Medicine; Visit Provider Internal Medicine | DX: Z23 Encounter for immunization (principal) | CPT/HCPCS: 90471; 90656 ==

== ENCOUNTER 2024-01-22 09:00 | Outpatient (AMB) | payer OTHER, SELFPAY ==
--- NOTE | 2024-01-22 09:02 | A.OFFPC_ITS ---
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 Environmental Planning Required: No Accompanied by: Self / Same As Patient Allergies metformin Allergy (Severe, Verified 01/22/24 09:22) nausea, diarreah zaleplon Allergy (Severe, Verified 01/22/24 09:22) Rash fluoxetine Allergy (Intermediate, Verified 01/22/24 09:22) drowsiness paroxetine Allergy (Intermediate, Verified 01/22/24 09:22) drowsiness sertraline [Zoloft] Allergy (Intermediate, Verified 01/22/24 09:22) drowsiness suvorexant [From Belsomra] Allergy (Mild, Verified 01/22/24 09:22) Rash Medication List - Last Reconciled 01/22/24 by Quin Obrien MD aripiprazole 15 mg PO QAM arm brace (Wrist Brace Medium) As directed baclofen 20 mg PO TID 30 days blood sugar diagnostic (FreeStyle Test strips) Use 1 test strip once a day blood-glucose meter (FreeStyle [place] Lite kit) As directed buspirone 30 mg PO BEDTIME cetirizine (All Day Allergy (cetirizine)) 10 mg (10 mL) PO DAILY PRN 30 days cholecalciferol (vitamin D3) 25 mcg PO DAILY 90 days estazolam 2 mg PO BEDTIME fluocinolone acetonide oil 0.01% (DermOtic Oil) 5 drps otic (ears) BID 7 days incontinence pad, liner, disp Use 1 pad four times a day prn lancets (FreeStyle Lancets) Use 1 lancet once a day lisinopril 5 mg PO BID 90 days oxycodone 10 mg PO Q4-6H PRN 30 days pantoprazole 40 mg PO DAILY 90 days pioglitazone 15 mg PO DAILY 90 days rosuvastatin 20 mg PO DAILY 90 days sucralfate 1 g PO BID temazepam 30 mg PO BEDTIME trazodone 100 mg PO BEDTIME venlafaxine ER 150 mg PO DAILY Tobacco use date assessed: 03/28/23 Dental Screening Dental Screen Date: 01/22/24 Did you have a dental visit in the last 12 months?: No Did you have a dental problem in the last 6 months where you did not have access to dental care?: No Was dental information given to patient?: Patient has dentist HPI HPI Comments History of Present Illness Details The patient is a 54-year-old female presenting with menopausal symptoms and recurring allergic reactions. She reports allergic reactions to Metformin resulting in diarrhea, Zaleplon causing a rash, and dizziness from several antidepressants, including Paroxetine, Fluoxetine, and Sertraline. Currently, she is on several medications for depression, anxiety, and insomnia, including Aripiprazole 15 mg, Buspirone 30 mg daily, Vitamin D supplements, and Temazepam at night. For muscle pain, she uses Baclofen as needed. Recent lab results indicate hemoglobin A1c at 6.2%. She reports managing past colorectal polyp removal and seeks further evaluation for hepatic and renal health due to family history of liver issues. She also expresses desire to quit smoking, smoking approximately 9 cigarettes daily, and is seeking aid through nicotine patches after previous unsuccessful attempts due to side effects. Additionally, she mentions sinusitis and left mastoid effusion with associated discomfort, alongside current allergic rhinitis controlled by Cetirizine. She also has diabetes mellitus type 2 well control with Actos. Hypertension has been stable with lisinopril and reports no side effects. On statins for cholesterol and lipid panel will be order and her LDL goal should be less than 70. No chest pain or shortness on breath. She had a mammogram in March of this year which was negative. She complains of a left axillary mass that sometimes is tender and has been present for about a month and I will order a diagnostic mammogram. Denies any nipple discharge or retraction. No change in skin color in the left breast. [facility] Medical History (Updated 01/22/24 @ 10:28 by Quin Obrien MD) Nicotine dependence, cigarettes, uncomplicated Essential hypertension Mild recurrent major depression Pure hypercholesterolemia Hypovitaminosis D Failed back syndrome Diabetes mellitus Hearing loss Insomnia Spondylolisthesis, lumbar region GERD (gastroesophageal reflux disease) Surgical History History of lithotripsy History of colonoscopy History of esophagogastroduodenoscopy S/P insertion of spinal cord stimulator History of lumbar surgery History of arthroplasty of right knee Family History Father Diabetes Mother Stroke Hypertension Brother Colon cancer Diabetes Family/Other FH: mental illness Sister Breast cancer Social History (Updated 01/22/24 @ 09:28 by Quin Obrien MD) Housing: House Alcohol intake: current Alcohol intake frequency: holidays/special occasions only Alcohol type: beer Patient Tobacco Use Status: Current everyday Tobacco user Tobacco use type: Cigarette Cigarettes Per Day: 9 Years Smoked: onset 14yo, 1/2-3/4 ppd x 40yrs, 20+PYH e-Cigarette/Vaping Use: Never Used Second Hand Smoke Exposure: No service: No Current occupational status: disabled Cognitive needs: No Hearing needs: No Vision needs: No Questionnaire Thrive Questionnaire Date Thrive assessed: 03/28/23 YAHAIRA-7 AMB Questionnaire YAHAIRA-7 Date YAHAIRA - 7 assessed: 03/28/23 Source: Developed by Drs. Juan Gonzalez, Allison Casper, Jhony Bazan and colleagues, with an educational tay from [employer]. Review of Systems Const All systems reviewed & are unremarkable except as noted in HPI and below Card Denies chest pain at rest, Denies chest pain with activity, Denies edema, Denies irregular heart rhythm, Denies claudication, Denies dyspnea, Denies dyspnea on exertion, Denies orthopnea, Denies paroxysmal nocturnal dyspnea and Denies slow heart rate Resp Denies cough, Denies dyspnea and Denies dyspnea on exertion Skin/Breast Reports breast mass Neuro Denies lack of coordination Physical exam (Primary Care) Vital Signs: Last Vital Signs BP 136/70 01/22/24 09:05 BMI result Body Mass Index 25.7 Tobacco/Smoking Status: Tobacco use Status Tobacco use date assessed 03/28/23 01/22/24 09:12 Patient Tobacco Use Status Current everyday Tobacco 01/22/24 09:28 Tobacco use type Cigarette 01/22/24 09:28 e-Cigarette/Vaping Use Never Used 01/22/24 09:28 Are you ready to quit: Yes Tobacco cessation counseling provided: Yes Items discussed: Nicotine replacement and QuitWorks Relapse Prevention: discussed the importance of a supportive environment, discussed extending NRT, discussed negative mood or depression after quitting, weight gain after smoking is common and discussed dietary, exercise and/or lifestyle changes Number of minutes spent counselin CPT code: 47583 - 4-10 Minutes Thrive Assessment: Date of Thrive Assessment Date Thrive assessed 03/28/23 01/22/24 09:12 HENWI Head: Yes normal to inspection, Yes normocephalic and Yes atraumatic Ears: external ears normal Eyes General: appearance normal, both eyes and all related structures Eyelids: Yes eyelids normal Conjunctivae: conjunctivae normal Neck Neck: Yes normal visual inspection and Yes supple Chest Breast/axilla inspection: normal inspection of the breasts and abnormal inspecti on of the breast Breast/axilla palpation: abnormal palpation of the axilla (left axillary mass) Resp Effort & Inspection: normal respiratory effort Auscultation: clear to auscultation bilaterally Cardio Jugular venous distension: no JVD Rate: regular rate Rhythm: regular rhythm Heart sounds: S1 normal heart sound present and S2 normal heart sound present GI Inspection: Yes normal to inspection Palpation (GI): Soft to palpation and nontender Auscultation: normal bowel sounds Skin General skin exam: no rashes or lesions noted Neuro General: no focal motor deficits Extrem General: Yes full ROM Psych Appearance: grossly normal Results AMB Hemoglobin A1c AMB Hemoglobin A1c 6.2 % Last Edit by CHIRAG Hatch on 01/22/24 09:1 6 Results Reviewed Results Reviewed: Laboratory Last Values Hgb A1c (Clinic) 6.2 % (4.0-6.0) H 01/22/24 09:02 Coding Level of Care Code Est Pt Level 4 (19681) Complex EM visit Add On G2211 Diagnoses Type 2 diabetes mellitus without complication, without long-term current use of insulin E11.9 Diabetes mellitus type: type 2 Diabetes mellitus intermodal dispatcher insulin use: without intermodal dispatcher use Diabetes mellitus complication status: without complication Essential hypertension I10 Pure hypercholesterolemia E78.00 Mass of left axilla R22.32 Laterality: left Mild recurrent major depression F33.0 Allergic rhinitis J30.9 Additional Codes Vital Signs *Quality* - CPT code: 03368 - 4-10 Minutes ([id number]) Time Spent (min) 25 Assessment & Plan Assessment & Plan (1) Diabetes mellitus: Code(s): E11.9 - Type 2 diabetes mellitus without complications Category: Medical Qualifiers: Diabetes mellitus type: type 2 Diabetes mellitus intermodal dispatcher insulin use: without intermodal dispatcher use Diabetes mellitus complication status: without complication Qualified Code(s): E11.9 - Type 2 diabetes mellitus without complications (2) Essential hypertension: Code(s): I10 - Essential (primary) hypertension Category: Medical (3) Pure hypercholesterolemia: Code(s): E78.00 - Pure hypercholesterolemia, unspecified Category: Medical (4) Axillary mass: Code(s): R22.30 - Localized swelling, mass and lump, unspecified upper limb Category: Medical Qualifiers: Laterality: left Qualified Code(s): R22.32 - Localized swelling, mass and lump, left upper limb (5) Mild recurrent major depression: Code(s): F33.0 - Major depressive disorder, recurrent, mild Category: Medical (6) Allergic rhinitis: Code(s): J30.9 - Allergic rhinitis, unspecified Category: Medical Plan - Menopausal Symptoms: Consideration of Venlafaxine for alleviating menopausal symptoms if advised by gynecology. - Allergic Reactions: Using Cetirizine as needed for allergic rhinitis and sinusitis; monitored with repeat referrals for ENT. - Nicotine Dependence: Start nicotine patches, second step, to support smoking cessation efforts. - Routine Screening and Monitoring: Schedule mammography for breast evaluation in March; monitor hepatic and renal function with lab tests; adherence to current medical regimen and lifestyle modifications. -diabetes mellitus type 2: Continue Actos. Keep A1c within goal. -hypertension: Continue lisinopril. Blood pressure goal is equal or less than 130/80. -pure hypercholesterolemia: Continue statins. Repeat lipid panel. LDL goal is less than 70. -left axillary mass: Diagnostic mammogram ordered. -mild major depression: Continue Abilify and follow-up with psychiatry. Patient was informed and verbally consented to the use of an ambient scribe for clinic note documentation during this visit. I discussed the use of Venlafaxine for potential management of menopausal symptoms, underscoring the necessity of consulting with a java scala developer. The importance of addressing nicotine addiction through a tailored nicotine replacement approach was emphasized due to the patient's smoking history. We reviewed the plan for regular health maintenance checks, including lab work for hepatic and renal monitoring in light of family history, as well as scheduling a mammography for the next screening. I reconfirmed the use of Cetirizine for her allergic conditions and encouraged follow-up if symptoms persisted. Orders: Orders Lipid Panel Today E78.5 - Hyperlipidemia, unspecified Microalbumin, Random (w Creat) Today R80.9 - Proteinuria, unspecified Comprehensive [place]. Panel Fast Today E11.9 - Type 2 diabetes mellitus without complications MM diagnostic mammo unilat LT Today R22.30 - Localized swelling, mass and lump, unspecified upper limb AMB Hemoglobin A1c Today E11.9 - Type 2 diabetes mellitus without complications Medications: New azelastine administer into each nostril 1 spray intranasal BID 30 days 30 mL 1RF nicotine 1 patch transdermal DAILY 28 days 28 ea 0RF Refilled cetirizine (All Day Allergy (cetirizine)) 10 mg (10 mL) PO DAILY 30 days PRN 120 mL 2RF allergy symptoms Patient Instructions: - Commence using the second step of nicotine patches as directed. - Schedule and attend upcoming mammography and ENT appointment. - Monitor for any adverse effects or persistent symptoms, and contact the office if concerns arise. - Continue current medication regimen and follow guidelines for managing depression, anxiety, and insomnia. - Focus on lifestyle modifications, including smoking cessation and dietary changes, and follow through with recommended lab testing for comprehensive evaluation.
[2024-01-22 09:05] VITALS: BP 136/70; BMI 25.7
== END 2024-01-22 09:35 | disposition home or self-care (01) ==
PROVIDERS: PCP Internal Medicine; Visit Provider Internal Medicine
DX: E11.9 Type 2 diabetes mellitus without complications (principal); I10 Essential (primary) hypertension; E78.00 Pure hypercholesterolemia, unspecified; R22.32 Localized swelling, mass and lump, left upper limb; F33.0 Major depressive disorder, recurrent, mild; J30.9 Allergic rhinitis, unspecified

== ENCOUNTER → 2024-01-22 09:00 | Outpatient (BNVA) | payer OTHER, SELFPAY | PROVIDERS: PCP Internal Medicine; Visit Provider Internal Medicine | DX: E11.9 Type 2 diabetes mellitus without complications (principal); I10 Essential (primary) hypertension; E78.00 Pure hypercholesterolemia, unspecified; R22.32 Localized swelling, mass and lump, left upper limb; F33.0 Major depressive disorder, recurrent, mild; J30.9 Allergic rhinitis, unspecified | CPT/HCPCS: 83036; 99212 ==

== ENCOUNTER 2024-01-29 13:28 | Outpatient (AMB) | payer OTHER, SELFPAY ==
[2024-01-29 13:29] VITALS: BP 120/70; BMI 26.5
--- NOTE | 2024-01-29 13:29 | MHC.OFFVIS ---
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 Person Services: Crap Game Box Person Present Information Interpreted: clinical only Public Relations Director: Public Relations Director Present Allergies metformin Allergy (Severe, Verified 01/29/24 13:35) nausea, diarreah zaleplon Allergy (Severe, Verified 01/29/24 13:35) Rash fluoxetine Allergy (Intermediate, Verified 01/29/24 13:35) drowsiness paroxetine Allergy (Intermediate, Verified 01/29/24 13:35) drowsiness sertraline [Zoloft] Allergy (Intermediate, Verified 01/29/24 13:35) drowsiness suvorexant [From Belsomra] Allergy (Mild, Verified 01/29/24 13:35) Rash Medication List - Last Reconciled 01/29/24 by Ira Lizarraga CNM aripiprazole 15 mg PO QAM arm brace (Wrist Brace Medium) As directed azelastine 1 spray intranasal BID 30 days baclofen 20 mg PO TID 30 days blood sugar diagnostic (FreeStyle Test strips) Use 1 test strip once a day blood-glucose meter (FreeStyle [place] Lite kit) As directed buspirone 30 mg PO BEDTIME cetirizine (All Day Allergy (cetirizine)) 10 mg (10 mL) PO DAILY PRN 30 days cholecalciferol (vitamin D3) 25 mcg PO DAILY 90 days estazolam 2 mg PO BEDTIME fluocinolone acetonide oil 0.01% (DermOtic Oil) 5 drps otic (ears) BID 7 days incontinence pad, liner, disp Use 1 pad four times a day prn lancets (FreeStyle Lancets) Use 1 lancet once a day lisinopril 5 mg PO BID 90 days nicotine 1 patch transdermal DAILY 28 days oxycodone 10 mg PO Q4-6H PRN 30 days pantoprazole 40 mg PO DAILY 90 days pioglitazone 15 mg PO DAILY 90 days rosuvastatin 20 mg PO DAILY 90 days sucralfate 1 g PO BID temazepam 30 mg PO BEDTIME trazodone 100 mg PO BEDTIME venlafaxine ER 150 mg PO DAILY Is last menstrual period known: No (no menses since november) 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 She gets lots of hot flashes and her neighbor told her there was a non hormone patch that she could use help prevent hot flashes. She is not interested in any hormones. Her periods been somewhat irregular in that she had a period in March for 3 days and then in October and November she had periods that were 7 days each she has not had anything since. She has a long history medical surgical orthopedic issues she had 2 back surgeries and she has her 2nd nerve stimulator implanted currently and she says it actually works and helps her a lot with her spondylosis, She also recently felt a lump in her left axilla that she ask her primary care doctor about and she has an upcoming mammogram to evaluate that she had a previous mammogram that was negative but this 1 be diagnostic. She has not been sexually active in the last year and she is open to testing with the she does not need to worry about control her partner was female. [facility] Medical History Nicotine dependence, cigarettes, uncomplicated Essential hypertension Mild recurrent major depression Pure hypercholesterolemia Hypovitaminosis D Failed back syndrome Diabetes mellitus Hearing loss Insomnia Spondylolisthesis, lumbar region GERD (gastroesophageal reflux disease) Surgical History History of lithotripsy History of colonoscopy History of esophagogastroduodenoscopy S/P insertion of spinal cord stimulator History of lumbar surgery History of arthroplasty of right knee Family History Father Diabetes Mother Stroke Hypertension Brother Colon cancer Diabetes Family/Other FH: mental illness Sister Breast cancer Social History Housing: House Alcohol intake: current Alcohol intake frequency: holidays/special occasions only Alcohol type: beer Patient Tobacco Use Status: Current everyday Tobacco user Tobacco use type: Cigarette Cigarettes Per Day: 9 Years Smoked: onset 14yo, 1/2-3/4 ppd x 40yrs, 20+PYH e-Cigarette/Vaping Use: Never Used Second Hand Smoke Exposure: No service: No Current occupational status: disabled Cognitive needs: No Hearing needs: No Vision needs: No Female Reproductive History Menstrual Age of Menarche: 14 Duration of menses: other control method: none Total pregnancies: 0 History of abnormal pap smear: No (previous pap neg.2019) Date of Mammogram: 03/21/23 (negative) Physical Exam Vital Signs: Last Vital Signs BP 120/70 01/29/24 13:29 BMI result Body Mass Index 26.5 Const Other: Well-healed scars from various surgeries General: healthy appearing, comfortable, no acute distress, well developed and alert Nutritional Appearance: average body habitus Orientation/consciousness: patient oriented x3 Limitations: no limitations HEENT Head: Yes normocephalic Neck Neck: Yes normal visual inspection Chest Other: Patient pointed out to me a swelling axilla approximately 3 cm x 2 cm oval. Chest palpation & inspection: normal inspection of the chest Breast/axilla inspection: normal inspection of the breasts and normal inspection of the axillae Breast/axilla palpation: normal palpation of the breasts and normal palpation of the axillae Resp Effort & Inspection: normal respiratory effort GI Inspection: Yes normal to inspection, No Abdominal wall edema and No distended Palpation (GI): Soft to palpation and nontender Other: Normal external exam vagina is pink and moist some ashly menopausal changes but not atrophic cervix is nulliparous long thick mobile nontender deep in pelvis vagina is narrow uterus small deep in pelvis and difficult feel but not enlarged adnexa nontender good tone with Kegel. General: Yes bladder normal to palpation External Female Exam: normal external appearance and normal appearance of the urethra Speculum Exam - Vagina: normal appearance of the vagina, normal palpation and normal vaginal discharge Speculum Exam - Cervix: normal appearance of the cervix, normal palpation and nontender Bimanual exam- vagina & uterus: normal bimanual exam, normal palpation, uterine size normal, bladder normal to palpation, consistency normal, normal palpation, uterine mobility normal, uterine shape normal, No Cervical tenderness present, non-tender and no cervical motion tenderness Bimanual Exam- Adnexa, other: normal adnexae, no masses, normal and No adnexal tenderness Neuro General: patient oriented x3 Quality Reporting (2019) Adult ([facility] 138/04/25/68) Smoking risk assessment performed?: Yes Patient Tobacco Use Status: Current everyday Tobacco user Assessment & Plan Assessment & Plan (1) Encounter for gynecological examination with Papanicolaou smear of cervix: Code(s): Z01.419 - Encounter for gynecological examination (general) (routine) without abnormal findings Category: Medical (2) Encounter for screening examination for sexually transmitted disease: Code(s): Z11.3 - Encounter for screening for infections with a predominantly sexual mode of transmission Category: Medical (3) Axillary mass: Comment: Has mammogram ordered for evaluation. Code(s): R22.30 - Localized swelling, mass and lump, unspecified upper limb Category: Medical Qualifiers: Laterality: left Qualified Code(s): R22.32 - Localized swelling, mass and lump, left upper limb (4) Hot flashes: Code(s): R23.2 - Flushing Category: Medical (5) Perimenopause: Code(s): N95.1 - Menopausal and female climacteric states Category: Medical Plan -----Discussed in this visit the following: healthy balanced diet, regular and consistent exercise, getting recommended health screens, doing the best she can for her particular health concerns, kegel exercises, pap smear screening and followup recommendations, mammography screening and SBE, normal changes in cycles in her life stage--- .---Discussed normal changes that happen premenapausally, perimenapausally, and postmenopausally, and ways to handle them. Discussed the normal variation, and the range of experiences that women experience. Discussed nutrition, health, need for exercise, both weight-bearing and aerobic. Also discussed the normal changes that happen with vaginal mucosal thinning and sensitivity, and simple more natural ways of handling these challenges. Coding Level of Care Code New Pt Prev Care 40-64y(47940) Diagnoses Encounter for gynecological examination with Papanicolaou smear of cervix Z01.419 Encounter for screening examination for sexually transmitted disease Z11.3 Mass of left axilla R22.32 Laterality: left Hot flashes R23.2 Perimenopause N95.1
== END 2024-01-29 14:18 | disposition home or self-care (01) ==
PROVIDERS: PCP Internal Medicine; Visit Provider Advanced Practice Midwife
DX: Z01.419 Encounter for gynecological examination (general) (routine) without abnormal findings (principal); R22.32 Localized swelling, mass and lump, left upper limb; R23.2 Flushing; N95.1 Menopausal and female climacteric states
CPT/HCPCS: 99386

== ENCOUNTER 2024-01-29 13:28 | Outpatient (REF) | payer OTHER, SELFPAY ==
[2024-01-30 02:38] LABS: CT PCR NOT DETECTED (Not Detect.); NG PCR NOT DETECTED (Not Detect.)
[2024-01-30 10:10] LABS: Bacterial Vaginosis PCR POSITIVE (Negative); Candida Group PCR NOT DETECTED (Not Detect); Candida glab krusei PCR NOT DETECTED (Not Detect); Trichomonas vaginalis PCR NOT DETECTED (Not Detect)
[2024-02-03 10:55] LABS: HPV 16,18/45 See PAP report
== END 2024-01-29 13:29 | disposition home or self-care (01) ==
LOC: HO.LAB 13:28
PROVIDERS: PCP Internal Medicine; Visit Provider Advanced Practice Midwife
DX: Z01.419 Encounter for gynecological examination (general) (routine) without abnormal findings (principal); N89.8 Other specified noninflammatory disorders of vagina; R22.32 Localized swelling, mass and lump, left upper limb; R23.2 Flushing; N95.1 Menopausal and female climacteric states
CPT/HCPCS: 0352U; 87491; 87591; 87624; 88175; 99386

== ENCOUNTER 2024-02-13 10:32 | Outpatient (AMB) | payer OTHER, SELFPAY ==
[2024-02-13 11:10] VITALS: BP 136/71; PULSE 82; O2SAT 97; BMI 26.5
--- NOTE | 2024-02-13 11:10 | A.OFFVIS_ITS ---
Vital Signs 02/13/24 11:10 Height 5 ft 6 in Weight 164 lb BMI 26.5 BP 136/71 Blood Pressure Location Lt brachial Position Sitting Pulse 82 Pulse Source Pulse Oximeter Pulse Oximetry (%) 97 Oxygen Delivery Method Room Air Intake Visit Reasons: [facility] FOLLOW UP Allergies metformin Allergy (Severe, Verified 02/13/24 11:12) nausea, diarreah zaleplon Allergy (Severe, Verified 02/13/24 11:12) Rash fluoxetine Allergy (Intermediate, Verified 02/13/24 11:12) drowsiness paroxetine Allergy (Intermediate, Verified 02/13/24 11:12) drowsiness sertraline [Zoloft] Allergy (Intermediate, Verified 02/13/24 11:12) drowsiness suvorexant [From Belmra] Allergy (Mild, Verified 02/13/24 11:12) Rash Medication List - Last Reconciled 02/13/24 by Jeni Jerome, CORDWOOD CUTTER amoxicillin 500 mg PO BID 7 days aripiprazole 15 mg PO QAM arm brace (Wrist Brace Medium) As directed azelastine 1 spray intranasal BID 30 days baclofen 20 mg PO TID 30 days blood sugar diagnostic (FreeStyle Test strips) Use 1 test strip once a day blood-glucose meter (FreeStyle [place] Lite kit) As directed buspirone 30 mg PO BEDTIME cetirizine (All Day Allergy (cetirizine)) 10 mg (10 mL) PO DAILY PRN 30 days cholecalciferol (vitamin D3) 25 mcg PO DAILY 90 days estazolam 2 mg PO BEDTIME fluocinolone acetonide oil 0.01% (DermOtic Oil) 5 drps otic (ears) BID 7 days incontinence pad, liner, disp Use 1 pad four times a day prn lancets (FreeStyle Lancets) Use 1 lancet once a day lisinopril 5 mg PO BID 90 days nicotine 1 patch transdermal DAILY 28 days oxycodone 10 mg PO Q4-6H PRN 30 days pantoprazole 40 mg PO DAILY 90 days pioglitazone 15 mg PO DAILY 90 days rosuvastatin 20 mg PO DAILY 90 days sucralfate 1 g PO BID temazepam 30 mg PO BEDTIME trazodone 100 mg PO BEDTIME venlafaxine ER 150 mg PO DAILY HPI Comments Details: Bhavana is very pleasant 54 years old female who presents in my office with complains on pain in the projection of lower lumbar spine as well as pain in the projection of the IPG implantation site. She was under care of neurosurgeon in the past and she had spinal cord stimulator [employer] implanted many years ago. Her IPG battery went out of charge and it was replaced by in the past. She was also sent for MRI of the lumbar spine to evaluate the condition of the prior laminectomy L5-S1 which was done secondary to severe grade 3 anterior listhesis of L5 over S1 with severe spinal stenosis. Currently on CT scan there is no evidence of nerve root compressions at this area. 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 She was sent for the MRI of the lumbar spine to evaluate Modic type changes however she was decline MRI on the premises that her machine is not compatible. I called Radiology today and I explained to them that her devices fully compatible with MRI less than 30 minutes. I entered new order of the MRI where he would need to do a pre approval of this new order. As of her pain in the projection of the battery the scar is very well-healed. There is no redness, no pathological discharge, no swelling no excessive scarring. I recommended patient to try topical lidocaine in maybe topical hydrocortisone in the area of the painful battery. I also explained to the patient that if her pain will be severe and not amendable to conservative measures I can offer her relocation of the battery however with the lead extension insertion she will lose ability to go for the MRI in the future. She also complains on stimulation of the anterior surface of the spinal cord: She reports vibrating sensation in the left subcostal area. She wants me to schedule an appointment with [facility] here in the office. I called Yolande [employer] rental sales representative and she will be in contact with the patient scheduling appointment for the adjustment of the stimulation. [facility], [facility] Medical History Nicotine dependence, cigarettes, uncomplicated Essential hypertension Mild recurrent major depression Pure hypercholesterolemia Hypovitaminosis D Failed back syndrome Diabetes mellitus Hearing loss Insomnia Spondylolisthesis, lumbar region GERD (gastroesophageal reflux disease) Surgical History History of lithotripsy History of colonoscopy History of esophagogastroduodenoscopy S/P insertion of spinal cord stimulator History of lumbar surgery History of arthroplasty of right knee Family History Father Diabetes Mother Stroke Hypertension Brother Colon cancer Diabetes Family/Other FH: mental illness Sister Breast cancer Social History Housing: House Alcohol intake: current Alcohol intake frequency: holidays/special occasions only Alcohol type: beer Patient Tobacco Use Status: Current everyday Tobacco user Tobacco use type: Cigarette Cigarettes Per Day: 9 Years Smoked: onset 14yo, 1/2-3/4 ppd x 40yrs, 20+PYH e-Cigarette/Vaping Use: Never Used Second Hand Smoke Exposure: No service: No Current occupational status: disabled Cognitive needs: No Hearing needs: No Vision needs: No Female Reproductive History Menstrual Age of Menarche: 14 Review of Systems Const All systems reviewed & are unremarkable except as noted in HPI and below ENT Reports Normal hearing present Neuro Reports Normal hearing present, Denies Abnormal speech present, Denies confusion and Denies Sensory deficit (Neuro) Psych Denies confusion Physical Exam Vital Signs: Last Vital Signs Pulse 82 02/13/24 11:10 BP 136/71 02/13/24 11:10 Pulse Ox 97 02/13/24 11:10 Oxygen Delivery Method Room Air 02/13/24 11:10 BMI result Body Mass Index 26.5 Const General: no acute distress; No confusion Orientation/consciousness: patient oriented x3 and No confusion Eyes General: appearance normal, both eyes and all related structures Pupils: Equal, round and reactive pupils present EOM: EOMs intact bilaterally Neck Neck: Yes full ROM Chest Chest palpation & inspection: normal inspection of the chest Resp Effort & Inspection: normal respiratory effort, able to speak in complete sentences, normal respiratory pattern, no audible wheezes and no cough Cardio Jugular venous distension: no JVD GI Inspection: Yes normal to inspection Back/Spine/Pelvis Other: There is very well-healed scar in the projection of the patient's lumbar spine approximately L4-5 S1 spinous processes. The results of very well-healed scar in the projection of the patient's left loin where under the skin the IPG is palpated. Neuro General: patient oriented x3, gait normal and No confusion Cranial nerves: Yes CN's II-XII intact bilaterally, Yes Equal, round and reactive pupils present, Yes Normal hearing present and Yes Ability to bilaterally elevate shoulders present Speech: No Abnormal speech present Gait exam (Neuro): Normal gait present Motor exam (neuro): 5/5 motor strength present throughout Sensory Exam: No Sensory deficit (Neuro) Extrem General: No pedal edema Psych Speech and movement: Normal speech and movement present Affect: normal affect Attitude: cooperative Thought process: Normal thought process present Thought content: Normal thought content present Insight: Good insight present (Psych) Judgement: Good judgement present (Psych) Quality Reporting (2019) Adult ([facility] 138/04/25/68) Smoking risk assessment performed?: Yes Patient Tobacco Use Status: Current everyday Tobacco user Results Reviewed Results Reviewed: CT LUMBAR SPINE WITHOUT CONTRAST CLINICAL INFORMATION: Postlaminectomy syndrome COMPARISON: CT lumbar spine 07/20/2020 TECHNIQUE: A multidetector CT acquisition of the lumbar spine is obtained without contrast. This CT examination was performed using dose optimization techniques as appropriate, variously including the following: *Automated exposure control *Adjustment of mA and/or kV according to patient size (this includes techniques or standardized protocols for targeted exams where dose is matched to indication/reason for exam; i.e. extremities or head) *Use of iterative reconstruction technique DLP: 544 mGy-cm FINDINGS: Stable grade 3 anterolisthesis at L5-S1 with severe disc height loss and solid interbody arthrodesis at this level. Postoperative changes following remote L5-S1 laminectomy with vacated screw tracks in the L4 and S1 vertebral bodies/posterior elements. Stable chronic height loss and osseous remodeling of the L5 vertebral body with posterior wedging. There is solid posterolateral bone fusion mass again seen spanning L4-S1. The remainder of the vertebral body heights maintained. Stable mild L4-L5 disc height loss. There is no suspicious osseous lesion. The intervertebral disc space heights are normal. Please not canal patency is not well assessed on this examination due to inherent limitations of CT without intrathecal contrast. Within these limitations, multilevel degenerative changes with level by level detail are as follows: L1-L2: No spinal canal or neural foraminal stenosis. L2-L3: Shallow annular disc bulge and mild facet arthrosis with ligamentum flavum thickening. No spinal canal or neural foraminal stenosis. L3-L4: Annular disc bulge with advanced bilateral facet arthrosis with ligamentum flavum thickening and vacuum phenomenon. No appreciable spinal canal stenosis. No neural foraminal stenosis. L4-L5: Annular disc bulge with advanced bilateral facet arthrosis with ligamentum flavum thickening. No spinal canal stenosis. Stable mild bilateral neural foraminal encroachment. L5-S1: Postlaminectomy changes with uncovered posterior disc, osteophytic ridging, advanced bilateral facet arthrosis and solid posterolateral bone fusion mass. Redemonstrated mild calcification along the dorsal margin of the thecal sac. Spinal canal is decompressed. Impression upon the traversing bilateral S1 nerve roots. Stable severe neural foraminal stenosis with marked compression of the exiting L5 nerve roots. There is a to severe fatty atrophy of the lower paraspinal musculature. Partial ossification of the left iliolumbar ligament near the L5 transverse ligament attachment site. Aortobiiliac calcific atherosclerosis. Partially imaged presumably leiomyomatous uterus. The abdominal aorta is of normal contour and caliber. CT/CT lumbar spine wo IV con IMPRESSION: Stable grade 3 anterolisthesis at L5-S1 and chronic postoperative changes following L5-S1 laminectomy. Solid L4-S1 posterolateral bone fusion mass and interbody arthrodesis at L5-S1. Stable severe bilateral L5-S1 neural foraminal stenosis with marked compression of the exiting L5 nerve roots. Additional stable lumbar spondylosis, including advanced hypertrophic facet arthrosis with vacuum phenomenon at the superior junctional level of L3-L4. Assessment & Plan Assessment & Plan (1) Postlaminectomy syndrome: Code(s): M96.1 - Postlaminectomy syndrome, not elsewhere classified Category: Medical (2) Chronic pain syndrome: Code(s): G89.4 - Chronic pain syndrome Category: Medical (3) Vertebrogenic low back pain: Code(s): M54.51 - Vertebrogenic low back pain Category: Medical Plan [employer] rental sales representative Yolande will contact patient will schedule appointment of the patient for the adjustment of the stimulation to avoid pleasant sensation in left subcostal area. I will schedule this patient for the follow-up after MRI will be performed. I introduced the order of the lumbar spine MRI. 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 I recommended the patient to apply lidocaine patches in the area of the patient's IPG implantation site and maybe from time to time apply small amount of cortisone cream to decrease inflammation in the area. I also explained to her that there is a possibility of relocation of her IPG down to her buttock but it might require extension implantation and that this will prevent her from going to the MRI for the rest of the life of the spinal cord stimulator. She will give us a call and schedule appointment after MRI is performed. Orders: Orders MR lumbar spine wo/w con Today G89.4 - Chronic pain syndrome, M54.51 - Vertebrogenic low back pain, M96.1 - Postlaminectomy syndrome, not elsewhere classified Patient Instructions: The conversation with this patient in B[place] was helped by voice supervisor dog license officer [phone] I here by testify that I spent 45 minutes in conversation with this patient as well as evaluating her prior records, evaluating her prior diagnostic studies, discussing her case with rental sales representative of [facility] planning her care and organizing this note. Coding Level of Care Code Est Pt Level 5 (55950) Diagnoses Postlaminectomy syndrome M96.1 Chronic pain syndrome G89.4 Vertebrogenic low back pain M54.51
== END 2024-02-13 11:12 | disposition home or self-care (01) ==
PROVIDERS: PCP Internal Medicine; Visit Provider Anesthesiology
DX: M96.1 Postlaminectomy syndrome, not elsewhere classified (principal); G89.4 Chronic pain syndrome; M54.51 Vertebrogenic low back pain
CPT/HCPCS: 99215

== ENCOUNTER 2024-02-13 11:28 | Outpatient (REF) | payer OTHER, SELFPAY ==
--- NOTE | ~2024-02-13 | US_ITS ---
EXAMINATION: MM DIAGNOSTIC DIGITAL BREAST TOMOSYNTHESIS, BILATERAL Limited left breast ultrasound. CLINICAL INFORMATION: Left axillary palpable lump for 1 year. Family history of breast cancer including patient's sister at 49. COMPARISON: Mammography: Comparison is made with relevant prior exams. TECHNIQUE: Digital breast mammography with tomosynthesis is performed in both the craniocaudal and mediolateral oblique views along with computer-aided detection (CAD). Limited left breast ultrasound. FINDINGS: The breasts are heterogeneously dense, which may obscure small masses (ACR BI-RADS breast composition Category c). Triangular palpable marker in the axilla on the left MLO view without underlying abnormality. There are no significant masses, abnormal calcifications, or other abnormalities. Targeted color Doppler ultrasound scanning in the left axilla demonstrates a normal axillary lymph node. There is otherwise normal axillary breast tissue. Results are discussed with the patient at time of visit. US/US breast LT limited mamm only IMPRESSION: No mammographic or sonographic abnormality to account for the patient's left axillary breast pain. Recommend clinical evaluation and follow-up for further evaluation. Patient has a strong family history of breast cancer. A breast MRI with contrast could be considered for further evaluation and or yearly screening surveillance. Breast MRI would need to be ordered by the patient's providing clinician. ASSESSMENT: BI-RADS BI-RADS 1 - Negative RECOMMENDATION: 1 year F/U This patient's information was entered into a reminder system with a target due date for their next mammogram. Electronically signed by: Kyara Robertson DO 02/13/2024 02:21 PM [facility]UVAL
== END 2024-02-13 11:29 | disposition home or self-care (01) ==
LOC: HO.MAMMO 11:28
PROVIDERS: PCP Internal Medicine; Visit Provider Internal Medicine
DX: N63.21 Unspecified lump in the left breast, upper outer quadrant (principal); Z80.3 Family history of malignant neoplasm of breast; M96.1 Postlaminectomy syndrome, not elsewhere classified; G89.4 Chronic pain syndrome; M54.51 Vertebrogenic low back pain
CPT/HCPCS: 76642; 77062; 77066; 99212

== ENCOUNTER → 2024-02-13 13:00 | Outpatient (BNV) | payer OTHER, SELFPAY | PROVIDERS: PCP Internal Medicine; Visit Provider Internal Medicine | DX: N64.4 Mastodynia (principal); R92.333 Mammographic heterogeneous density, bilateral breasts; Z80.3 Family history of malignant neoplasm of breast | CPT/HCPCS: 76882; 77066; G0279 ==

== ENCOUNTER → 2024-03-19 11:00 | Outpatient (BNVA) | payer OTHER, SELFPAY | PROVIDERS: PCP Internal Medicine; Visit Provider Anesthesiology ==

== ENCOUNTER 2024-03-26 10:09 | Outpatient (REF) | payer OTHER, SELFPAY | END 2024-03-26 10:10 | disposition home or self-care (01) | LOC: HO.MAMMO 10:09 | PROVIDERS: PCP Internal Medicine; Visit Provider Internal Medicine | DX: Z12.31 Encounter for screening mammogram for malignant neoplasm of breast (principal) | CPT/HCPCS: 77063; 77067 ==

== ENCOUNTER → 2024-03-26 11:00 | Outpatient (BNV) | payer OTHER, SELFPAY | PROVIDERS: PCP Internal Medicine; Visit Provider Internal Medicine | DX: Z12.31 Encounter for screening mammogram for malignant neoplasm of breast (principal) | CPT/HCPCS: 77063; 77067 ==

== ENCOUNTER → 2024-04-02 10:35 | Outpatient (BNVA) | payer OTHER, SELFPAY | PROVIDERS: PCP Internal Medicine | DX: Z00.00 Encounter for general adult medical examination without abnormal findings (principal); M77.8 Other enthesopathies, not elsewhere classified; M96.1 Postlaminectomy syndrome, not elsewhere classified; G89.4 Chronic pain syndrome; M43.16 Spondylolisthesis, lumbar region; J30.9 Allergic rhinitis, unspecified; H65.93 Unspecified nonsuppurative otitis media, bilateral; I10 Essential (primary) hypertension; E78.00 Pure hypercholesterolemia, unspecified; E11.9 Type 2 diabetes mellitus without complications; K21.9 Gastro-esophageal reflux disease without esophagitis; E55.9 Vitamin D deficiency, unspecified; F17.210 Nicotine dependence, cigarettes, uncomplicated; G47.00 Insomnia, unspecified; Z71.6 Tobacco abuse counseling | CPT/HCPCS: 83036; 96127; 99396 ==

== ENCOUNTER 2024-04-02 10:36 | Outpatient (AMB) | payer OTHER, SELFPAY ==
[2024-04-02 10:46] VITALS: BP 130/82; PULSE 93; O2SAT 97; BMI 26.3
--- NOTE | 2024-04-02 10:46 | A.OFFPC_ITS ---
Vital Signs 04/02/24 10:46 Height 5 ft 6 in Weight 163 lb 2 oz BMI 26.3 BP 130/82 Blood Pressure Location Lt brachial Position Sitting Pulse 93 Pulse Source Pulse Oximeter Pulse Oximetry (%) 97 Oxygen Delivery Method Room Air Intake Visit Reasons: annual pe Tick Eradicator Required: Yes Accompanied by: Friend Allergies metformin Allergy (Severe, Verified 04/02/24 10:46) nausea, diarreah zaleplon Allergy (Severe, Verified 04/02/24 10:46) Rash fluoxetine Allergy (Intermediate, Verified 04/02/24 10:46) drowsiness paroxetine Allergy (Intermediate, Verified 04/02/24 10:46) drowsiness sertraline [Zoloft] Allergy (Intermediate, Verified 04/02/24 10:46) drowsiness suvorexant [From Belsomra] Allergy (Mild, Verified 04/02/24 10:46) Rash Medication List - Last Reconciled 04/02/24 by KEISHA Martinez aripiprazole 15 mg PO QAM arm brace (Wrist Brace Medium) As directed azelastine 1 spray intranasal BID 30 days baclofen 20 mg PO TID 30 days blood sugar diagnostic (FreeStyle Test strips) Use 1 test strip once a day blood-glucose meter (FreeStyle [place] Lite kit) As directed buspirone 30 mg PO BEDTIME cetirizine (All Day Allergy (cetirizine)) 10 mg (10 mL) PO DAILY PRN 30 days cholecalciferol (vitamin D3) 25 mcg PO DAILY 90 days estazolam 2 mg PO BEDTIME fluocinolone acetonide oil 0.01% (DermOtic Oil) 5 drps otic (ears) BID 7 days incontinence pad, liner, disp Use 1 pad four times a day prn lancets (FreeStyle Lancets) Use 1 lancet once a day lisinopril 5 mg PO BID 90 days nicotine 1 patch transdermal DAILY 28 days oxycodone 10 mg PO Q4-6H PRN 30 days pantoprazole 40 mg PO DAILY 90 days pioglitazone 15 mg PO DAILY 90 days rosuvastatin 20 mg PO DAILY 90 days sucralfate 1 g PO BID temazepam 30 mg PO BEDTIME trazodone 100 mg PO BEDTIME venlafaxine ER 150 mg PO DAILY Tobacco use date assessed: 04/02/24 Dental Screening Dental Screen Date: 04/02/24 Did you have a dental visit in the last 12 months?: No Did you have a dental problem in the last 6 months where you did not have access to dental care?: No Was dental information given to patient?: No HPI annual pe HPI Details colonoscopoy due 2028 Dentist: as not seen them in more than a year-she will make an appt Eye: upto date Snellen: Right: Left: Corrected vision: glasses STI screening:n/a mammogram: done last week, will like to know the results-not read yet Colonoscopy: 2028 PHQ-9: Flu: up to date COVID: x2, no booster,declines Tdap: reports having it done within 10 years Diet: reports that she eats whatever she wants to eat: at times have low sugars Exercise: no A1c 6.9 within goal but trending up discussed with patient we will dietary modifications tendinitis in both thumbs, volar area of the thymbs, reports that sometimes it get swollen-requesting brace for tendinitis Patient is complaining ear pain, the ear effusion-refill Zyrtec in order Flonase -recommended ibuprofen pain bs 3 or 4 times: 150 today, ranges from high headache low stomach pain brace for tendinitis [facility] Medical History (Reviewed 01/29/24 @ 13:36 by Annita Mills [facility]) Nicotine dependence, cigarettes, uncomplicated Essential hypertension Mild recurrent major depression Pure hypercholesterolemia Hypovitaminosis D Failed back syndrome Diabetes mellitus Hearing loss Insomnia Spondylolisthesis, lumbar region GERD (gastroesophageal reflux disease) Surgical History History of lithotripsy History of colonoscopy History of esophagogastroduodenoscopy S/P insertion of spinal cord stimulator History of lumbar surgery History of arthroplasty of right knee Family History Father Diabetes Mother Stroke Hypertension Brother Colon cancer Diabetes Family/Other FH: mental illness Sister Breast cancer Social History Housing: House Alcohol intake: current Alcohol intake frequency: holidays/special occasions only Alcohol type: beer Patient Tobacco Use Status: Current everyday Tobacco user Tobacco use type: Cigarette Cigarettes Per Day: 9 Years Smoked: onset 14yo, 1/2-3/4 ppd x 40yrs, 20+PYH e-Cigarette/Vaping Use: Never Used Second Hand Smoke Exposure: No service: No Current occupational status: disabled Cognitive needs: No Hearing needs: No Vision needs: No Female Reproductive History Menstrual Age of Menarche: 14 Questionnaire PHQ-9 Over the last 2 weeks, how often have you been bothered by any of the following problems? 1. Little interest or pleasure in doing things: several days 2. Feeling down, depressed, or hopeless: several days 3. Trouble falling or staying asleep, or sleeping too much: several days 4. Feeling tired or having little energy: several days 5. Poor appetite or overeating: not at all 6. Feeling bad about yourself - or that you are a failure or have let yourself or your family down: not at all 7. Trouble concentrating on things, such as reading the newspaper or watching television: not at all 8. Moving or speaking so slowly that other people could have noticed. Or the opposite - being so fidgety or restless that you have been moving around a lot more than usual: not at all 9. Thoughts that you would be better off or of hurting yourself in some way: not at all Total score: 4 Depression Screening Interpretation: Positive Depression Screening Follow-up: Existing condition, In treatment, Community Mental Health Worker F/U and Follow- up Visit Requested Depression Screening Done: Yes 40770 - PHQ-9 Billing: Yes Source: Developed by Drs. Juan Gonzalez, Allison Casper, Jhony Bazan and colleagues, with an educational tay from [employer]. Thrive Questionnaire Date Thrive assessed: 04/02/24 I am a: Patient What is your living situation today?: I have a steady place to live Within the past 12 months, did the food you bought not last and you didn't have the money to get more?: Never true Within the past 12 months, did you worry whether your food would run out before you got money to buy more?: Never true Do you have trouble paying for medicines?: No Do you have trouble getting transportation to medical appointments?: No Do you have trouble paying your heating and electricity bill?: Yes Do you have trouble taking care of your child, family member or friend?: No Do you have trouble with day-to-day activities such as bathing, preparing meals, shopping, managing finances, etc.?: Yes Are you currently unemployed and looking for a job?: No Are you interested in more education?: No Please select the resources that you would like help with: None Currently or been in a relationship where the following occur: I choose not to answer THRIVE Score: 1 AUDIT C Alcohol Use Questionnaire (AUDIT-C) 1. How often do you have a drink containing alcohol?: 2-4 times a month 2. How many drinks containing alcohol do you have on a typical day when you are drinking?: 3 or 4 3. How often do you have six or more drinks on one occasion?: Never Total Score: 3 YAHAIRA-7 AMB Questionnaire YAHAIRA-7 Date YAHAIRA - 7 assessed: 04/02/24 Feeling nervous, anxious, or on edge: 1 = Several days Not being able to stop or control worryin = Nearly every day Worrying too much about different things: 3 = Nearly every day Trouble relaxin = Nearly every day Being so restless that it is hard to sit still: 1 = Several days Becoming easily annoyed or irritable: 3 = Nearly every day Feeling afraid as if something awful might happen: 3 = Nearly every day Total YAHAIRA-7 score (0-4 normal; 5-9 mild; 10-14 moderate; 15-21 severe): 17 Source: Developed by Drs. Juan Gonzalez, Allison Casper, Jhony Bazan and colleagues, with an educational tay from [employer]. Physical exam (Primary Care) Vital Signs: Last Vital Signs Pulse 93 04/02/24 10:46 BP 130/82 04/02/24 10:46 Pulse Ox 97 04/02/24 10:46 Oxygen Delivery Method Room Air 04/02/24 10:46 BMI result Body Mass Index 26.3 Tobacco/Smoking Status: Tobacco use Status Tobacco use date assessed 04/02/24 04/02/24 10:53 Patient Tobacco Use Status Current everyday Tobacco 04/02/24 10:53 Tobacco use type Cigarette 04/02/24 10:53 e-Cigarette/Vaping Use Never Used 04/02/24 10:53 PHQ-9: PHQ-9 Score PHQ-9: Total score 4 04/02/24 11:27 Depression Screening Interpretation: Positive Depression Screening Follow-up: Existing condition, In treatment, Community Mental Health Worker F/U and Follow- up Visit Requested Thrive Assessment: Date of Thrive Assessment Date Thrive assessed 04/02/24 04/02/24 10:53 Currently or been in a relationship where the following occur: I choose not to answer Results AMB Hemoglobin A1c AMB Hemoglobin A1c 6.9 % Last Edit by CHIRAG Ziegler on 04/02/24 11 :38 Coding Additional Codes PHQ-9 - 42493 - PHQ-9 Billing: Yes ([id number]) Assessment & Plan Assessment & Plan Orders: Orders Lipid Panel Today E11.9 - Type 2 diabetes mellitus without complications, E55.9 - Vitamin D deficiency, unspecified, G89.4 - Chronic pain syndrome, K21.9 - Gastro-esophageal reflux disease without esophagitis, Z00.00 - Encounter for general adult medical examination without abnormal findings Vitamin B12 Today E11.9 - Type 2 diabetes mellitus without complications, E55.9 - Vitamin D deficiency, unspecified, G89.4 - Chronic pain syndrome, K21.9 - Gastro-esophageal reflux disease without esophagitis, Z00.00 - Encounter for general adult medical examination without abnormal findings TSH reflex Free T4 Today E11.9 - Type 2 diabetes mellitus without complications, E55.9 - Vitamin D deficiency, unspecified, G89.4 - Chronic pain syndrome, K21.9 - Gastro-esophageal reflux disease without esophagitis, Z00.00 - Encounter for general adult medical examination without abnormal findings UA CC w/rflx Micro + Cult Today E11.9 - Type 2 diabetes mellitus without complications, E55.9 - Vitamin D deficiency, unspecified, G89.4 - Chronic pain syndrome, K21.9 - Gastro-esophageal reflux disease without esophagitis, Z00.00 - Encounter for general adult medical examination without abnormal findings Vitamin D 25-OH Total Today E11.9 - Type 2 diabetes mellitus without complications, E55.9 - Vitamin D deficiency, unspecified, G89.4 - Chronic pain syndrome, K21.9 - Gastro-esophageal reflux disease without esophagitis, Z00.00 - Encounter for general adult medical examination without abnormal findings AMB Hemoglobin A1c Today Z13.9 - Encounter for screening, unspecified Complete Blood Count Auto Diff Today E11.9 - Type 2 diabetes mellitus without complications, E55.9 - Vitamin D deficiency, unspecified, G89.4 - Chronic pain syndrome, K21.9 - Gastro-esophageal reflux disease without esophagitis, Z00.00 - Encounter for general adult medical examination without abnormal findings Comprehensive [place]. Panel Fast Today E11.9 - Type 2 diabetes mellitus without complications, E55.9 - Vitamin D deficiency, unspecified, G89.4 - Chronic pain syndrome, K21.9 - Gastro-esophageal reflux disease without esophagitis, Z00.00 - Encounter for general adult medical examination without abnormal findings Microalbumin, Random (w Creat) Today E11.9 - Type 2 diabetes mellitus without complications, E55.9 - Vitamin D deficiency, unspecified, G89.4 - Chronic pain syndrome, K21.9 - Gastro-esophageal reflux disease without esophagitis, Z00.00 - Encounter for general adult medical examination without abnormal findings Hemoglobin A1c Today E11.9 - Type 2 diabetes mellitus without complications, E55.9 - Vitamin D deficiency, unspecified, G89.4 - Chronic pain syndrome, K21.9 - Gastro-esophageal reflux disease without esophagitis, Z00.00 - Encounter for general adult medical examination without abnormal findings Medications: New [bilateral thumb brace] As directed 2 ea 0RF fluticasone propionate 50 mcg/actuation administer into each nostril 1 spray intranasal BID 16 grams 0RF Changed From cetirizine (All Day Allergy (cetirizine)) 10 mg (10 mL) PO DAILY 30 days PRN 120 mL 2RF allergy symptoms To cetirizine 10 mg (10 mL) PO DAILY 30 days PRN 120 mL 2RF allergy symptoms
== END 2024-04-02 11:51 | disposition home or self-care (01) ==
LOC: HO.HMCH 10:36
PROVIDERS: PCP Internal Medicine
DX: Z13.9 Encounter for screening, unspecified (principal)

== ENCOUNTER 2024-07-02 14:45 | Outpatient (AMB) | payer OTHER, SELFPAY ==
--- NOTE | 2024-07-02 15:04 | MHC.PC.OV ---
Vital Signs 07/02/24 15:05 Height 5 ft 6 in Weight 160 lb BMI 25.8 BP 112/70 Blood Pressure Location Lt brachial Position Sitting Intake Visit Reasons: 3 Month F/U Intake Note: Patient here for a 3 month Wholesale Representative Required: No Accompanied by: Child No Financial Resp Allergies metformin Allergy (Severe, Verified 07/02/24 15:19) nausea, diarreah zaleplon Allergy (Severe, Verified 07/02/24 15:19) Rash fluoxetine Allergy (Intermediate, Verified 07/02/24 15:19) drowsiness paroxetine Allergy (Intermediate, Verified 07/02/24 15:19) drowsiness sertraline [Zoloft] Allergy (Intermediate, Verified 07/02/24 15:19) drowsiness suvorexant [From [facility]] Allergy (Mild, Verified 07/02/24 15:19) Rash Medication List - Last Reconciled 07/02/24 by Quin Obrien MD aripiprazole 15 mg PO QAM arm brace (Wrist Brace Medium) As directed azelastine 1 spray intranasal BID 30 days baclofen 20 mg PO TID 30 days [bilateral thumb brace As directed both thumbs] blood sugar diagnostic (FreeStyle Test strips) Use 1 test strip once a day blood-glucose meter (FreeStyle [place] Lite kit) As directed buspirone 30 mg PO BEDTIME cetirizine 10 mg (10 mL) PO DAILY PRN 30 days cholecalciferol (vitamin D3) 25 mcg PO DAILY 90 days estazolam 2 mg PO BEDTIME fluocinolone acetonide oil 0.01% (DermOtic Oil) 5 drps otic (ears) BID 7 days fluticasone propionate 50 mcg/actuation 1 spray intranasal BID incontinence pad, liner, disp Use 1 pad four times a day prn lancets (FreeStyle Lancets) Use 1 lancet once a day lisinopril 5 mg PO BID 90 days nicotine 1 patch transdermal DAILY 28 days oxycodone 10 mg PO Q4-6H PRN 30 days pantoprazole 40 mg PO DAILY 90 days pioglitazone 15 mg PO DAILY 90 days rosuvastatin 20 mg PO DAILY 90 days sucralfate 1 g PO BID temazepam 30 mg PO BEDTIME trazodone 100 mg PO BEDTIME venlafaxine ER 150 mg PO DAILY Tobacco use date assessed: 04/02/24 Dental Screening Dental Screen Date: 04/02/24 HPI HPI Comments History of Present Illness Details The patient is a 54-year-old female presenting with follow-up for management of type 2 diabetes mellitus, hypertension, and dyslipidemia. The patient's A1c has improved to 6.6 from a previous measurement in March, indicating better glycemic control. There is no reported current treatment compliance or lifestyle changes discussed during the conversation. Her blood pressure was noted to be well controlled during this visit. The patient's medication regimen includes multiple anti-hypertensive agents and lipid-lowering medications: a repeat prescription for rosuvastatin and lisinopril is noted. Previously, the patient experienced allergies to various psychotropic medications, including paroxetine, fluoxetine, and sertraline, which may complicate polypharmacy management. Additionally, the patient reports a preference for consuming foods with added salt, such as avocado, tomatoes, and mangoes. This is a pertinent diet habit, considering her hypertension management and potential impact on edema or cardiovascular health. The patient also mentioned experiencing back pain that appears to be worsening, but no specific history regarding the onset or characteristics of this pain was elaborated upon. The patient wishes to have a potential MRI, presumably for an evaluation of this back issue, suggesting a chronic or progressive nature to this musculoskeletal concern. [facility] Medical History Nicotine dependence, cigarettes, uncomplicated Essential hypertension Mild recurrent major depression Pure hypercholesterolemia Hypovitaminosis D Failed back syndrome Diabetes mellitus Hearing loss Insomnia Spondylolisthesis, lumbar region GERD (gastroesophageal reflux disease) Surgical History History of lithotripsy History of colonoscopy History of esophagogastroduodenoscopy S/P insertion of spinal cord stimulator History of lumbar surgery History of arthroplasty of right knee Family History Father Diabetes Mother Stroke Hypertension Brother Colon cancer Diabetes Family/Other FH: mental illness Sister Breast cancer Social History Housing: House Alcohol intake: current Alcohol intake frequency: holidays/special occasions only Alcohol type: beer Patient Tobacco Use Status: Current everyday Tobacco user Tobacco use type: Cigarette Cigarettes Per Day: 9 Years Smoked: onset 14yo, 1/2-3/4 ppd x 40yrs, 20+PYH e-Cigarette/Vaping Use: Never Used Second Hand Smoke Exposure: No service: No Current occupational status: disabled Cognitive needs: No Hearing needs: No Vision needs: No Female Reproductive History Menstrual Age of Menarche: 14 Questionnaire PHQ-9 Over the last 2 weeks, how often have you been bothered by any of the following problems? 1. Little interest or pleasure in doing things: several days 2. Feeling down, depressed, or hopeless: several days 3. Trouble falling or staying asleep, or sleeping too much: nearly every day 4. Feeling tired or having little energy: nearly every day 5. Poor appetite or overeating: nearly every day 6. Feeling bad about yourself - or that you are a failure or have let yourself or your family down: nearly every day 7. Trouble concentrating on things, such as reading the newspaper or watching television: not at all 8. Moving or speaking so slowly that other people could have noticed. Or the opposite - being so fidgety or restless that you have been moving around a lot more than usual: several days 9. Thoughts that you would be better off or of hurting yourself in some way: not at all Total score: 15 Depression Screening Interpretation: Positive (no suicidal thoughts) Depression Screening Follow-up: Existing condition, In treatment, Community Mental Health Worker F/U and Follow-up Visit Requested Depression Screening Done: Yes 58011 - PHQ-9 Billing: Yes Source: Developed by Drs. Juan Gonzalez, Allison Casper, Jhony Bazan and colleagues, with an educational tay from [employer]. Thrive Questionnaire Date Thrive assessed: 03/26/24 I am a: Patient What is your living situation today?: I have a steady place to live Within the past 12 months, did the food you bought not last and you didn't have the money to get more?: Never true Within the past 12 months, did you worry whether your food would run out before you got money to buy more?: Never true Do you have trouble paying for medicines?: No Do you have trouble getting transportation to medical appointments?: No Do you have trouble paying your heating and electricity bill?: Yes Do you have trouble taking care of your child, family member or friend?: No Do you have trouble with day-to-day activities such as bathing, preparing meals, shopping, managing finances, etc.?: Yes Are you currently unemployed and looking for a job?: No Are you interested in more education?: No Please select the resources that you would like help with: None Currently or been in a relationship where the following occur: I choose not to answer THRIVE Score: 1 YAHAIRA-7 AMB Questionnaire YAHAIRA-7 Date YAHAIRA - 7 assessed: 04/02/24 Source: Developed by Drs. Juan Gonzalez, Allison Casper, Jhony Bazan and colleagues, with an educational tay from [employer]. Review of Systems Const All systems reviewed & are unremarkable except as noted in HPI and below Card Denies chest pain at rest, Denies chest pain with activity, Denies edema, Denies irregular heart rhythm, Denies claudication, Denies dyspnea, Denies dyspnea on exertion, Denies orthopnea, Denies paroxysmal nocturnal dyspnea and Denies slow heart rate Resp Denies cough, Denies dyspnea and Denies dyspnea on exertion GI Denies abdominal pain, Denies change in bowel habits, Denies excessive flatus, Denies nausea and Denies vomiting Physical exam (Primary Care) Vital Signs: Last Vital Signs BP 112/70 07/02/24 15:05 BMI result Body Mass Index 25.8 Tobacco/Smoking Status: Tobacco use Status Tobacco use date assessed 04/02/24 07/02/24 15:14 Patient Tobacco Use Status Current everyday Tobacco 07/02/24 15:14 Tobacco use type Cigarette 07/02/24 15:14 e-Cigarette/Vaping Use Never Used 07/02/24 15:14 PHQ-9: PHQ-9 Score PHQ-9: Total score 15 07/02/24 15:22 Depression Screening Interpretation: Positive (no suicidal thoughts) Depression Screening Follow-up: Existing condition, In treatment, Community Mental Health Worker F/U and Follow-up Visit Requested Thrive Assessment: Date of Thrive Assessment Date Thrive assessed 03/26/24 07/02/24 15:14 Currently or been in a relationship where the following occur: I choose not to answer Resp Effort & Inspection: normal respiratory effort Auscultation: clear to auscultation bilaterally Cardio Jugular venous distension: no JVD Rate: regular rate Rhythm: regular rhythm Heart sounds: S1 normal heart sound present and S2 normal heart sound present Extrem General: Yes full ROM Results AMB Hemoglobin A1c AMB Hemoglobin A1c 6.6 % Last Edit by CHIRAG Hatch on 07/02/24 15:24 Results Reviewed Results Reviewed: Laboratory Last Values Hgb A1c (Clinic) 6.6 % (4.0-6.0) H 07/02/24 15:04 Coding Level of Care Code Est Pt Level 4 (53230) Complex EM visit Add On G2211 Diagnoses Type 2 diabetes mellitus without complication, without long-term current use of insulin E11.9 Diabetes mellitus type: type 2 Diabetes mellitus long term care pharmacist insulin use: without prison use Diabetes mellitus complication status: without complication Essential hypertension I10 Pure hypercholesterolemia E78.00 Gastroesophageal reflux disease, unspecified whether esophagitis present K21.9 Esophagitis presence: esophagitis presence not specified Mild recurrent major depression F33.0 Additional Codes PHQ-9 - 83259 - PHQ-9 Billing: Yes ([id number]) Time Spent (min) 23 Assessment & Plan Assessment & Plan (1) Diabetes mellitus: Code(s): E11.9 - Type 2 diabetes mellitus without complications Category: Medical Qualifiers: Diabetes mellitus type: type 2 Diabetes mellitus long term care pharmacist insulin use: without long term care pharmacist use Diabetes mellitus complication status: without complication Qualified Code(s): E11.9 - Type 2 diabetes mellitus without complications (2) Essential hypertension: Code(s): I10 - Essential (primary) hypertension Category: Medical (3) Pure hypercholesterolemia: Code(s): E78.00 - Pure hypercholesterolemia, unspecified Category: Medical (4) GERD (gastroesophageal reflux disease): Code(s): K21.9 - Gastro-esophageal reflux disease without esophagitis Category: Medical Qualifiers: Esophagitis presence: esophagitis presence not specified Qualified Code(s): K21.9 - Gastro-esophageal reflux disease without esophagitis (5) Mild recurrent major depression: Code(s): F33.0 - Major depressive disorder, recurrent, mild Category: Medical Plan The current diabetes management regimen appears effective, so I will continue it, including Actos. Hypertension is well controlled with lisinopril, and I will maintain this twice-daily regimen. The patient is to continue rosuvastatin for lipids, pending lab evaluations of liver and renal function. The patient's musculoskeletal concerns, particularly her back pain, may be further evaluated with imaging if symptoms persist or worsen. As the patient reports salt consumption, dietary recommendations were reinforced to manage hypertension and reduce cardiovascular risk. Patient was informed and verbally consented to the use of an ambient scribe for clinic note documentation during this visit. I reviewed the patient's chronic conditions, including diabetes, hypertension, and dyslipidemia, noting improved A1c results. We discussed the importance of continued adherence to current medications and the impact of diet, particularly salt intake, on edema and cardiovascular health. I advised on monitoring kidney and liver functions with routine laboratory tests for safety due to ongoing medication use. The patient expressed concern about back pain, and while imaging was not currently ordered, I explained the potential future need for MRI if symptoms progression dictates. Orders: Orders Microalbumin, Random (w Creat) 07/02/24 R80.9 - Proteinuria, unspecified AMB Hemoglobin A1c 07/02/24 E11.9 - Type 2 diabetes mellitus without complications Vitamin D 25-OH Total 07/02/24 E55.9 - Vitamin D deficiency, unspecified Lipid Panel 07/02/24 E78.5 - Hyperlipidemia, unspecified Comprehensive [place]. Panel Fast 07/02/24 E11.9 - Type 2 diabetes mellitus without complications Medications: Refilled blood-glucose meter (FreeStyle [place] Lite kit) As directed 1 ea 0RF E11.9 - Type 2 diabetes mellitus without complications blood sugar diagnostic (FreeStyle Test strips) Use 1 test strip once a day 50 ea 11RF E11.9 - Type 2 diabetes mellitus without complications lancets (FreeStyle Lancets) Use 1 lancet once a day 100 ea 11RF E11.9 - Type 2 diabetes mellitus without complications Patient Instructions: - Continue taking your prescribed medications as directed. - Reduce salt intake in your diet as it can affect your blood pressure and cause swelling. - Follow up with laboratory tests as scheduled to monitor your kidney and liver function. - Notify medical staff if your back pain worsens or if new symptoms develop.
[2024-07-02 15:05] VITALS: BP 112/70; BMI 25.8
== END 2024-07-02 15:32 | disposition home or self-care (01) ==
LOC: HO.HMCH 14:46
PROVIDERS: PCP Internal Medicine; Visit Provider Internal Medicine
DX: E11.9 Type 2 diabetes mellitus without complications (principal)

== ENCOUNTER → 2024-07-02 14:45 | Outpatient (BNVA) | payer OTHER, SELFPAY | PROVIDERS: PCP Internal Medicine; Visit Provider Internal Medicine | DX: E11.9 Type 2 diabetes mellitus without complications (principal); I10 Essential (primary) hypertension; E78.00 Pure hypercholesterolemia, unspecified; K21.9 Gastro-esophageal reflux disease without esophagitis; F33.0 Major depressive disorder, recurrent, mild; Z79.899 Other long term (current) drug therapy | CPT/HCPCS: 83036; 96127; 99212 ==

== ENCOUNTER 2024-11-19 11:31 | Outpatient (AMB) | payer OTHER, SELFPAY ==
--- NOTE | 2024-11-19 11:32 | A.OFFPC_ITS ---
Intake Visit Reasons: dm [employer]atelic Consultant Required: No Accompanied by: Self / Same As Patient Allergies metformin Allergy (Severe, Verified 11/19/24 11:51) nausea, diarreah zaleplon Allergy (Severe, Verified 11/19/24 11:51) Rash fluoxetine Allergy (Intermediate, Verified 11/19/24 11:51) drowsiness paroxetine Allergy (Intermediate, Verified 11/19/24 11:51) drowsiness sertraline (Zoloft) Allergy (Intermediate, Verified 11/19/24 11:51) drowsiness [facility] ([facility]) Allergy (Mild, Verified 11/19/24 11:51) Rash Medication List - Last Reconciled 11/19/24 by Quin Obrien MD aripiprazole 15 mg PO QAM arm brace (Wrist Brace Medium) As directed azelastine 1 spray intranasal BID 30 days baclofen 20 mg PO TID 30 days [bilateral thumb brace As directed both thumbs] blood sugar diagnostic (FreeStyle Test strips) Use 1 test strip once a day blood-glucose meter (FreeStyle [place] Lite kit) As directed buspirone 30 mg PO BEDTIME cetirizine 10 mg (10 mL) PO DAILY PRN 30 days cholecalciferol (vitamin D3) 25 mcg PO DAILY 90 days estazolam 2 mg PO BEDTIME fluocinolone acetonide oil 0.01% (DermOtic Oil) 5 drps otic (ears) BID 7 days fluticasone propionate 50 mcg/actuation 1 spray intranasal BID incontinence pad, liner, disp Use 1 pad four times a day prn lancets (FreeStyle Lancets) Use 1 lancet once a day lisinopril 5 mg PO BID 90 days nicotine 1 patch transdermal DAILY 28 days oxycodone 10 mg PO Q4-6H PRN 30 days pantoprazole 40 mg PO DAILY 90 days pioglitazone 15 mg PO DAILY 90 days rosuvastatin 20 mg PO DAILY 90 days sucralfate 1 g PO BID temazepam 30 mg PO BEDTIME trazodone 100 mg PO BEDTIME venlafaxine ER 150 mg PO DAILY Tobacco use date assessed: 11/19/24 Dental Screening Dental Screen Date: 11/19/24 Did you have a dental visit in the last 12 months?: No Did you have a dental problem in the last 6 months where you did not have access to dental care?: No Was dental information given to patient?: No HPI HPI Comments History of Present Illness Details This is a 54-year-old female with mild recurrent major depression, hype rtension, diabetes mellitus type 2 and pure hypercholesterolemia that has tele health visit by phone for follow-up on her conditions. Depression has been stable with medications and follow by Psychiatry. Blood pressure at home well controlled. Blood glucose has been around 100-120. Lipid panel will be order and her LDL goal should be less than 70. She has chronic back pain due to failed back syndrome and is on opiates. Patient is aware that she needs to be physically here for her next office visit in 4 months due to this matter. If she is not physically present I can discontinue her opiates. [facility] Medical History Nicotine dependence, cigarettes, uncomplicated Essential hypertension Mild recurrent major depression Pure hypercholesterolemia Hypovitaminosis D Failed back syndrome Diabetes mellitus Hearing loss Insomnia Spondylolisthesis, lumbar region GERD (gastroesophageal reflux disease) Surgical History History of lithotripsy History of colonoscopy History of esophagogastroduodenoscopy S/P insertion of spinal cord stimulator History of lumbar surgery History of arthroplasty of right knee Family History Father Diabetes Mother Stroke Hypertension Brother Colon cancer Diabetes Family/Other FH: mental illness Sister Breast cancer Social History Housing: House Alcohol intake: current Alcohol intake frequency: holidays/special occasions only Alcohol type: beer Patient Tobacco Use Status: Current everyday Tobacco user Tobacco use type: Cigarette Cigarettes Per Day: 9 Years Smoked: onset 14yo, 1/2-3/4 ppd x 40yrs, 20+PYH e-Cigarette/Vaping Use: Never Used Second Hand Smoke Exposure: No service: No Current occupational status: disabled Cognitive needs: No Hearing needs: No Vision needs: No Female Reproductive History Menstrual Age of Menarche: 14 Questionnaire Thrive Questionnaire Date Thrive assessed: 03/26/24 I am a: Patient What is your living situation today?: I have a steady place to live Within the past 12 months, did the food you bought not last and you didn't have the money to get more?: Never true Within the past 12 months, did you worry whether your food would run out before you got money to buy more?: Never true Do you have trouble paying for medicines?: No Do you have trouble getting transportation to medical appointments?: No Do you have trouble paying your heating and electricity bill?: Yes Do you have trouble taking care of your child, family member or friend?: No Do you have trouble with day-to-day activities such as bathing, preparing meals, shopping, managing finances, etc.?: Yes Are you currently unemployed and looking for a job?: No Are you interested in more education?: No Please select the resources that you would like help with: None Currently or been in a relationship where the following occur: I choose not to answer THRIVE Score: 1 AUDIT C Alcohol Use Questionnaire (AUDIT-C) 1. How often do you have a drink containing alcohol?: 2-4 times a month 2. How many drinks containing alcohol do you have on a typical day when you are drinking?: 3 or 4 3. How often do you have six or more drinks on one occasion?: Never Total Score: 3 Score Reviewed/Action Taken: Yes YAHAIRA-7 AMB Questionnaire YAHAIRA-7 Date YAHAIRA - 7 assessed: 04/02/24 Source: Developed by Drs. Juan Gonzalez, Allison Casper, Jhony Bazan and colleagues, with an educational tay from [employer]. Physical exam (Primary Care) Tobacco/Smoking Status: Tobacco use Status Tobacco use date assessed 11/19/24 11/19/24 11:40 Patient Tobacco Use Status Current everyday Tobacco 11/19/24 11:35 Tobacco use type Cigarette 11/19/24 11:35 e-Cigarette/Vaping Use Never Used 11/19/24 11:35 Thrive Assessment: Date of Thrive Assessment Date Thrive assessed 03/26/24 11/19/24 11:35 Currently or been in a relationship where the following occur: I choose not to answer Telehealth Telehealth Telehealth Platform: Telephone Location of provider rendering services: practice address Location of patient: address on file Patient Identification confirmed using: Name, : Yes Telehealth method: voice only Patient verbally consented to treatment: Yes Patient verbally consented to billing insurance company: Yes Patient informed of any privacy concerns related to visit: Yes Coding Level of Care Code Tele Est Pt Level 4 (84403) Diagnoses Mild recurrent major depression F33.0 Essential hypertension I10 Type 2 diabetes mellitus without complication, without long-term current use of insulin E11.9 Diabetes mellitus type: type 2 Diabetes mellitus custodial insulin use: without terminal makeup operator use Diabetes mellitus complication status: without complication Pure hypercholesterolemia E78.00 Time Spent (min) 15 Assessment & Plan Assessment & Plan (1) Mild recurrent major depression: Code(s): F33.0 - Major depressive disorder, recurrent, mild Category: Medical (2) Essential hypertension: Code(s): I10 - Essential (primary) hypertension Category: Medical (3) Diabetes mellitus: Code(s): E11.9 - Type 2 diabetes mellitus without complications Category: Medical Qualifiers: Diabetes mellitus type: type 2 Diabetes mellitus terminal makeup operator insulin use: without custodial use Diabetes mellitus complication status: without complication Qualified Code(s): E11.9 - Type 2 diabetes mellitus without complications (4) Pure hypercholesterolemia: Code(s): E78.00 - Pure hypercholesterolemia, unspecified Category: Medical Plan Continue current meds. Labs ordered to be done within the next 3 months. Orders: Orders Lipid Panel Today E78.5 - Hyperlipidemia, unspecified Microalbumin, Random (w Creat) Today R80.9 - Proteinuria, unspecified Comprehensive [place]. Panel Fast Today E11.9 - Type 2 diabetes mellitus without complications Medications: Refilled oxycodone 10 mg PO Q4-6H PRN 180 tabs 0RF pain 30 days M43.16 - Spondylolisthesis, lumbar region
== END 2024-11-19 12:35 | disposition home or self-care (01) ==
LOC: HO.HMCH 11:31
PROVIDERS: PCP Internal Medicine; Visit Provider Internal Medicine
DX: F33.0 Major depressive disorder, recurrent, mild (principal); I10 Essential (primary) hypertension; E11.9 Type 2 diabetes mellitus without complications; E78.00 Pure hypercholesterolemia, unspecified